=== PATIENT | female | born 1945 | race Caucasian/White ===

== ENCOUNTER → 2016-09-01 | Outpatient (CLI) | payer MEDICARE, BC ==
--- NOTE | 2016-09-01 15:41 | CR ---
EXAMINATION: Two-view chest (PA and Lateral views). HISTORY: Cough. FINDINGS: The trachea is midline. The cardiomediastinal silhouette is within normal limits. There is moderate chronic interstitial prominence without focal infiltrate. No pleural effusion or pneumothorax. Osseous structures appear unremarkable. IMPRESSION: Moderate chronic interstitial prominence and hyperinflation without an acute cardiopulmonary finding .
== END ==
LOC: MW.CHFP 14:38
PROVIDERS: ATTEND Physician Assistant
DX: R05 Cough (principal); R91.8 Other nonspecific abnormal finding of lung field
CPT/HCPCS: 36415; 71020; 85025; G0463

== ENCOUNTER → 2016-09-13 | Outpatient (CLI) | payer MEDICARE, BC ==
[2016-09-13 08:57] LABS: CHLORIDE,CL 104 mmol/L (98-110); SODIUM,NA 138 mmol/L (136-146)
== END ==
LOC: MW.CHFP 08:13
PROVIDERS: ATTEND Emergency Medicine
DX: E78.00 Pure hypercholesterolemia, unspecified (principal); J45.909 Unspecified asthma, uncomplicated; E03.9 Hypothyroidism, unspecified
CPT/HCPCS: 36415; 80048; 84443

== ENCOUNTER → 2016-09-14 | Outpatient (CLI) | payer MEDICARE, BC ==
--- NOTE | 2016-09-14 16:47 | MY ---
EXAMINATION: Bilateral digital mammography utilizing CAD. HISTORY: Screening exam. Comparison is made to previous studies dated 01/22/2015, 01/15/2014. FINDINGS: Bilateral scattered fibroglandular densities. No suspicious calcifications, masses or a rchitectural distortions. No pathologic appearing lymph nodes, no abnormal skin thickening or nipp le inversion. CAD highlighted regions appear normal at this time. IMPRESSION: BI-RADS category I - negative mammogram. Continued screening according to ACR-ACS gu idelines suggested. THE FALSE-NEGATIVE RATE OF MAMMOGRAM IS APPROXIMATELY 10%. MANAGEMENT OF A PALPABLE ABNORMALITY MUST BE BASED UPON CLINICAL GROUNDS. SENSITIVITY FOR DETECTION OF ABNORMALITIES IN DENSE BREASTS IS LOW. NOTE: A letter will be sent to the patient regarding findings. [facility] -- DORETHA Hammond [phone] - FAX [phone]
== END ==
LOC: MW.MAM 10:52
PROVIDERS: ATTEND Emergency Medicine
DX: Z12.31 Encounter for screening mammogram for malignant neoplasm of breast (principal)
CPT/HCPCS: 99214; G0202; G0202-26

== ENCOUNTER → 2016-10-04 | Outpatient (CLI) | payer MEDICARE, BC | LOC: MW.CHFP 08:00 | PROVIDERS: ATTEND Emergency Medicine | DX: J44.1 Chronic obstructive pulmonary disease with (acute) exacerbation (principal) | CPT/HCPCS: 96372; G0463; J3301 ==

== ENCOUNTER 2018-03-17 08:11 | Emergency (ER) | payer MEDICARE, BC ==
[2018-03-17] MEDS ORDERED: Albuterol/Ipratropium 3.0-0.5 MG/3 ML Neb Soln NEB ONE (08:32)
[2018-03-17 08:33] VITALS: BP 192/103
--- NOTE | 2018-03-17 08:36 | EDM.PDOC ---
ED HPI GENERAL MEDICAL PROBLEM - General Chief Complaint: Respiratory Problem Stated Complaint: COUGHING Time Seen by Provider: 03/17/18 08:28 - History of Present Illness INITIAL COMMENTS - FREE TEXT/NARRATIVE: HISTORY AND PHYSICAL: History of present illness: Patient's a 72-year-old female with history of COPD who presents with a concern of shortness of breath cough 2 weeks she denies chest pain fever chills nausea vomiting Review of systems: As per history of present illness and below otherwise all systems reviewed and negative. Past medical history: As per history of present illness and as reviewed below otherwise noncontributory. Surgical history: As per history of present illness and as reviewed below otherwise noncontributory. Social history: No reported history of drug or alcohol abuse. Family history: As per history of present illness and as reviewed below otherwise noncontributory. Physical exam: HEENT: Atraumatic, normocephalic, pupils reactive, negative for conjunctival pallor or scleral icterus, mucous membranes moist, throat clear, neck supple, nontender, trachea midline. Lungs: Rare end exploit wheezing, breath sounds equal bilaterally, chest nontender. Heart: S1S2, regular, negative for clicks, rubs, or JVD. Abdomen: Soft, nondistended, nontender. Negative for masses or hepatosplenomegaly. Negative for costovertebral tenderness. Pelvis: Stable nontender. Genitourinary: Deferred. Rectal: Deferred. Extremities: Atraumatic, negative for cords or calf pain. Neurovascular unremarkable. Neuro: Awake, alert, oriented. Cranial nerves II through XII unremarkable. Cerebellum unremarkable. Motor and sensory unremarkable throughout. Exam nonfocal. Diagnostics: Chest x-ray Therapeutics: Albuterol ipratropium nebulizer Impression: #1 COPD with exacerbation Definitive disposition and diagnosis as appropriate pending reevaluation and review of above. - Related Data Allergies Allergy/AdvReac Type Severity Reaction Status Date / Time No Known Allergies Allergy Verified 03/17/18 08:24 Home Meds: Home Meds Albuterol [Ventolin HFA] 2 puff INH ASDIRECTED PRN 03/17/18 [History] Fluorouracil 1 applic TOP BID 03/17/18 [History] Fluticasone/Salmeterol [Advair 250-50 Diskus] 2 puff INH BID 03/17/18 [History] Levothyroxine Sodium 1 tab PO DAILY 03/17/18 [History] Simvastatin 20 mg PO DAILY 03/17/18 [History] Past Medical History Respiratory History: Reports: Bronchitis, Recurrent, COPD, Pneumonia, Recurrent Endocrine/Metabolic History: Reports: Hypothyroidism - Infectious Disease History Infectious Disease History: Reports: Chicken Pox, Measles, Mumps, Rubella - Past Surgical History GI Surgical History: Reports: Cholecystectomy Social & Family History - Family History Family Medical History: Noncontributory - Tobacco Use Smoking Status *Q: Current Every Day Smoker Years of Tobacco use: 30 Packs/Tins Daily: 0.5 - Caffeine Use Caffeine Use: Reports: Soda - Recreational Drug Use Recreational Drug Use: No ED ROS GENERAL - Review of Systems Review Of Systems: ROS reveals no pertinent complaints other than HPI. ED EXAM, GENERAL - Physical Exam Exam: See Below (See dictation) Course - Vital Signs Last Recorded V/S: Last Vital Signs Temp 35.9 C 03/17/18 08:21 Pulse 94 03/17/18 08:21 Resp 20 03/17/18 08:21 BP 192/103 H 03/17/18 08:21 Pulse Ox 91 L 03/17/18 08:21 - Orders/Labs/Meds Orders: Active Orders 24 hr Category Date Time Status RT Aerosol Therapy [RC] ASDIRECTED Care 03/17/18 08:32 Active Chest 1V Frontal [CR] Stat Exams 03/17/18 08:32 Taken Meds: Medications Discontinued Medications Generic Name Dose Route Start Last Admin Trade Name Freq PRN Reason Stop Dose Admin Albuterol/Ipratropium 3 ml 03/17/18 08:32 03/17/18 08:43 Duoneb 3.0-0.5 Mg/3 Ml NEB 03/17/18 08:33 3 ml ONETIME ONE Administration Departure - Departure Time of Disposition: 10:58 Disposition: Home, Self-Care 01 Condition: Good Clinical Impression: Acute bronchiolitis, COPD (chronic obstructive pulmonary disease) - Discharge Information *PRESCRIPTION DRUG MONITORING PROGRAM REVIEWED*: Not Applicable *COPY OF PRESCRIPTION DRUG MONITORING REPORT IN PATIENT MARYANNE: Not Applicable Instructions: Acute Bronchitis, Adult Referrals: Apolinar Johnson MD [Primary Care Provider] - Forms: ED Department Discharge Additional Instructions: 1. Return to ED as needed as discussed 2. Take Medications as prescribed. 3. Follow up with Primary care. - My Orders Last 24 Hours: My Active Orders 03/17/18 08:32 RT Aerosol Therapy [RC] ASDIRECTED Chest 1V Frontal [CR] Stat - Assessment/Plan Last 24 Hours: My Active Orders 03/17/18 08:32 RT Aerosol Therapy [RC] ASDIRECTED Chest 1V Frontal [CR] Stat
--- NOTE | 2018-03-18 13:06 | CR ---
EXAM DATE: 03/17/18 PATIENT'S AGE: 72 Patient: SAM FUNG Facility: [place], [place] Site . Site : 1945 Study: XRay Chest [id number]/2/2018 8:47:51 AM Ordering Physician: Doctor Daniel Final Report: INDICATION: Shortness of breath TECHNIQUE: Single view chest. FINDINGS: The lungs are clear. The heart, mediastinum and pulmonary vessels are of normal size. There is no evidence of pleural disease. IMPRESSION: Negative chest. Dictated by Andreea Rubin MD @ Mar 17 2018 8:56AM (Electronic Signature) Report Signed by Proxy. CHIN
== END 2018-03-17 09:31 | disposition home or self-care (01) ==
LOC: MW.ED 08:11
DX: J44.1 Chronic obstructive pulmonary disease with (acute) exacerbation (principal); F17.210 Nicotine dependence, cigarettes, uncomplicated; Z79.899 Other long term (current) drug therapy
CPT/HCPCS: 71045; 71045-26; 94640; 99283-25; J7620-GY

== ENCOUNTER 2018-08-02 09:42 | Day surgery (SDC) | payer MEDICARE, BC ==
--- NOTE | 2018-08-02 07:07 | PCM.PREANE ---
Preanesthetic Assessment - Anesthesia/Transfusion/Family Hx Anesthesia History: Prior Anesthesia Without Reaction (belkis, tubal and laryngoscopy for nodule in throat on vocal cord (resolved, no further signs or symptoms): no problems with anesthesia) Family History of Anesthesia Reaction: No Transfusion History: No Prior Transfusion(s) - Review of Systems General: No Symptoms Pulmonary: No Symptoms (asthma/copd--uses inhaler prn. Smoker. chronic bronchitis from smoking. Used inhaler this morning but stillhas few rhonchi on left and right-albuterol neb Rx ordered preop. smokes 1/2 ppd.) Cardiovascular: No Symptoms Gastrointestinal: No Symptoms Neurological: No Symptoms Other: Reports: Thyroid Problems (hypothyroid==on Rx) - Physical Assessment NPO Status Date: 08/02/18 NPO Status Time: 00:00 Pulse: 78 O2 Sat by Pulse Oximetry: 98 Respiratory Rate: 18 Blood Pressure: 178/82 Temperature: 36.7 C Height: 1.63 m Weight: 79.379 kg ASA Class: 3 Mental Status: Alert & Oriented x3 Airway Class: Mallampati = 2 Dentition: Reports: Dentures (upper denture and lower partial) Thyro-Mental Finger Breadths: 2 Mouth Opening Finger Breadths: 3 ROM/Head Extension: Full Lungs: Normal Respiratory Effort, Rhonchi Cardiovascular: Regular Rate, Regular Rhythm, No Murmurs - Lab Values: cmp done 09/30 was WNL - Allergies Allergies/Adverse Reactions: Allergies Allergy/AdvReac Type Severity Reaction Status Date / Time acetaminophen Allergy Abdominal Verified 07/31/18 10:44 [From Tylenol-Codeine] Pain cephalexin Allergy Nausea and Verified 07/31/18 10:44 Vomiting codeine Allergy Abdominal Verified 08/02/18 10:43 [From Tylenol-Codeine] Pain sulfamethoxazole Allergy Hives Verified 07/31/18 10:44 - Blood Blood Available: No Product(s) Available: None - Anesthesia Plan Pre-Op Medication Ordered: None - Acknowledgements Anesthesia Type Planned: MAC (Mac discussed with patient. GA backup. Consent signed. Alll questions answered. Albuterol neb at 1045 hrs.) Pt an Appropriate Candidate for the Planned Anesthesia: Yes Alternatives and Risks of Anesthesia Discussed w Pt/Guardian: Yes Pt/Guardian Understands and Agrees with Anesthesia Plan: Yes PreAnesthesia Questionnaire HEENT History: Reports: Allergic Rhinitis, Cataract, Other (See Below) Other HEENT History: wears glasses, has upper denture and lower partial removable denture Cardiovascular History: Reports: High Cholesterol Respiratory History: Reports: Asthma, COPD Gastrointestinal History: Reports: Hiatal Hernia, Other (See Below) Other Gastrointestinal History: occasional heartburn 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: Musculoskeletal History: Reports: Arthritis, Back Pain, Chronic, Fracture Other Musculoskeletal History: has a hard time lying on her back, hx of fx foot Neurological History: Reports: Other (See Below) Other Neuro History: hx of motion sickness Endocrine/Metabolic History: Reports: Hypothyroidism Oncologic (Cancer) History: Reports: Basal Cell Carcinoma Other Oncologic History: currently on nose - Infectious Disease History Infectious Disease History: Reports: Chicken Pox, Measles, Mumps, Rubella - Past Surgical History HEENT Surgical History: Reports: Cataract Surgery, Other (See Below) Other HEENT Surgeries/Procedures: Excision of Vocal Cord Polyp GI Surgical History: Reports: Cholecystectomy Female Surgical History: Reports: Tubal Ligation - SUBSTANCE USE Smoking Status *Q: Current Every Day Smoker Tobacco Use Within Last Twelve Months: Cigarettes Recreational Drug Use History: No - HOME MEDS Home Medications: Home Meds Albuterol [Ventolin HFA] 1 - 2 puff INH Q4H PRN 03/17/18 [History] Fluticasone/Salmeterol [Advair 250-50 Diskus] 1 puff INH BID 03/17/18 [History] Levothyroxine Sodium 100 mcg PO QAM 03/17/18 [History] Simvastatin 20 mg PO DAILY 03/17/18 [History] Fluticasone Propionate [Flonase Allergy Relief] 1 spray NASBOTH BID PRN [History] Loratadine/Pseudoephedrine [Claritin-D 12 Hour] 0.25 tab PO DAILY PRN 07/31/18 [ History] - CURRENT (IN HOUSE) MEDS Current Meds: Current Medications Bupivacaine HCl/Epinephrine Bitart (Marcaine 0.25%/Epinephrine 1:200,000) 10 ml INJECT ONETIME ONE Stop: 08/02/18 08:01 Clindamycin Phosphate 600 mg/ (Premix) 50 mls @ 150 mls/hr IV ONETIME ONE Stop: 08/02/18 08:19 Lactated Ringer's (Ringers, Lactated) 1,000 mls @ 125 mls/hr IV ASDIRECTED WILTON
[~2018-08-02 09:42] MED LIST: Bupivacaine 0.25%/EPINEPHrine 1:200,000 10 ML SDV INJECT ONE; Clindamycin Phosphate in D5W 600 MG in Premix Bag 1 BAG IV ONE; Lactated Ringers 1,000 ML IV SCH
[2018-08-02] MEDS ORDERED: Albuterol 0.083% 2.5 MG/3 ML Neb Soln NEB ONE (10:32)
[2018-08-02] MEDS ORDERED: Bupivacaine 25%/EPINEPHrine/PF 30 ML ONE (10:44)
[2018-08-02] MEDS ORDERED: Tetracaine HCl/PF 0.5% 4 ML Bottle ONE (10:44)
[2018-08-02] MEDS ORDERED: fentaNYL 100 MCG/2 ML SDV IVPUSH PRN (10:52)
[2018-08-02] MEDS ORDERED: Propofol 200 MG/20 ML SDV ONE (10:58)
[2018-08-02] MEDS ORDERED: Midazolam 1 MG/ML 2 ML SDV ONE (10:58)
[2018-08-02] MEDS ORDERED: Ondansetron 4 MG/2 ML SDV IVPUSH SCH (11:00)
--- NOTE | 2018-08-02 12:35 | PCM.POSTAN ---
POST ANESTHESIA ASSESSMENT - MENTAL STATUS Mental Status: Alert, Oriented (awake and alert. Drinking water. Had only versed and propofol (no narcotics)) - VITAL SIGNS Pulse Rate: 78 SaO2: 98 (room air) Resp Rate: 18 Blood Pressure: 178/82 (her back hurts from laying flat for so long..) Temperature: 36.5 C - RESPIRATORY Respiratory Status: Respiratory Rate WNL, Airway Patent, O2 Saturation Stable - CARDIOVASCULAR CV Status: Pulse Rate WNL, Blood Pressure Stable - GASTROINTESTINAL GI Status: No Symptoms - PAIN Pain Score: 0 (no pain, no nausea) - POST OP HYDRATION Hydration Status: Adequate & Stable - OBSERVATIONS Free Text/Narrative:: awake and alert and conversant. Drinking water. Great post op phase I recovery.
--- NOTE | 2018-08-02 13:25 | PCM48HPAN ---
Post Anesthesia Note - EVALUATION WITHIN 48HRS OF ANESTHETIC Vital Signs in Normal Range: Yes Patient Participated in Evaluation: Yes Respiratory Function Stable: Yes Airway Patent: Yes Cardiovascular Function Stable: Yes Hydration Status Stable: Yes Pain Control Satisfactory: Yes Nausea and Vomiting Control Satisfactory: Yes Pulse Rate: 78 SaO2: 97 Resp Rate: 18 Temperature: 36.5 C Blood Pressure: 178/82 (her back hurts from laying flat for so long..) - COMMENTS/OBSERVATIONS Free Text/Narrative:: awake, alert, vitals stable. Ready to go home. Excellent post op phase II recovery.
--- NOTE | 2018-08-02 13:50 | PCM.OPNOTE ---
- General Post-Op/Procedure Note Date of Surgery/Procedure: 08/02/18 Operative Procedure(s): excision of nasal tip basal cell with frozen sections 1.3cm2 - v-y nasolabial advancement flap total defect + flap area = 3cm2 Pre Op Diagnosis: nasal tip basal cell Post-Op Diagnosis: Same Anesthesia Technique: Local, MAC Primary Surgeon: Radha Simmons Complications: None Condition: Good
[2018-08-02 14:07] VITALS: BP 180/87
--- NOTE | 2018-08-05 19:33 | OR ---
SURGEON: MANUEL KNIGHT MD DATE OF PROCEDURE: 08/02/2018 PREOPERATIVE DIAGNOSIS: Basal cell of the nasal tip. POSTOPERATIVE DIAGNOSIS: Basal cell of the nasal tip. PROCEDURE: 1. Excision of nasal tip basal cell with frozen sections 1.3 cm2. 2. V-Y nasolabial advancement flap for closure. Total defect plus flap area is 3 cm2. CAREER MANAGER: None. ANESTHESIA: Local MAC. INDICATIONS: Ms. Nazario is a 72-year-old female with a basal cell of the tip of her nose. She has failed conservative management with Efudex and this is not resolved. We discussed risks and benefits of excision. Risks were including but not limited to, bleeding, infection, damage to underlying or overlying structures, possible need for future interventions, possible scarring. PROCEDURE IN DETAIL: After informed consent was obtained and placed on the chart, the patient was brought to the operating theater and laid in supine position. After adequate local MAC anesthesia was obtained, the area was prepped and draped, a time-out was completed to confirm side and site. After adequate anesthesia, the 1.3 cm nasal tip basal cell carcinoma was excised and marked at 12 o'clock position and sent for frozen sections. Frozen sections returned as basal cell carcinoma with margins negative. Meticulous hemostasis was obtained with Bovie electrocautery and a V-Y nasolabial advancement flap was designed for closure of the defect. Total flap area plus the defect was 3 cm2. This was easily advanced in place and sutured using deep 4-0 Monocryl stitches and a running 6-0 Prolene for the skin for closure. Once adequately closed, the wound was dressed with bacitracin. The patient tolerated this well. All counts and needles were correct at the end of the case. FOLLOWUP INSTRUCTIONS: The patient will see us in the clinic in approximately 1 week, sooner if any problems, questions, or concerns. She will take [id number] medications for pain control. HEGGTHE / MODL /[id number]
== END 2018-08-02 12:50 | disposition home or self-care (01) ==
LOC: MW.SDS 09:42
PROVIDERS: ATTEND Plastic Surgery
DX: C44.311 Basal cell carcinoma of skin of nose (principal); J30.1 Allergic rhinitis due to pollen; J44.9 Chronic obstructive pulmonary disease, unspecified; E78.00 Pure hypercholesterolemia, unspecified; E03.9 Hypothyroidism, unspecified; F17.210 Nicotine dependence, cigarettes, uncomplicated; Z88.1 Allergy status to other antibiotic agents; Z88.2 Allergy status to sulfonamides; Z88.5 Allergy status to narcotic agent; Z88.6 Allergy status to analgesic agent; Z79.890 Hormone replacement therapy; Z98.890 Other specified postprocedural states
CPT/HCPCS: 14060; 88305; 88331; 94640; J2250; J2704; J3490; J7120; A9270-GY

== ENCOUNTER 2019-12-19 15:52 | Emergency (ER) | payer MEDICARE, BC ==
[2019-12-19] MEDS ORDERED: Sodium Chloride 0.9% 10 ML Syringe FLUSH PRN (15:54)
[2019-12-19] MEDS ORDERED: Sodium Chloride 0.9% 2.5 ML Syringe FLUSH PRN (15:54)
[2019-12-19] MEDS ORDERED: Heparin Sodium 5,000 Units/ML Vial ONE (16:03)
[2019-12-19] MEDS ORDERED: Heparin Sod,Pork In 0.45% Nacl 25,000 UNIT/500 ML IV.SOLN IV ONE (16:04)
[2019-12-19] MEDS ORDERED: Heparin Sodium 5,000 Units/ML Vial IVPUSH ONE (16:07)
[2019-12-19] MEDS ORDERED: fentaNYL 50 MCG/ML SDV ONE (16:09)
[2019-12-19 16:13] VITALS: BP 120/58; PULSE 53
[2019-12-19] MEDS ORDERED: Heparin Sod,Pork In 0.45% Nacl 25,000 UNIT/500 ML IV.SOLN IV SCH (16:15)
[2019-12-19] MEDS ORDERED: Aspirin 300 MG Supp ONE (16:15)
[2019-12-19] MEDS ORDERED: Aspirin 81 MG Tab.Chew ONE (16:17)
--- NOTE | 2019-12-19 16:24 | EDM.PDOC ---
ED HPI GENERAL MEDICAL PROBLEM - General Chief Complaint: Chest Pain Stated Complaint: CHEST PAIN Time Seen by Provider: 12/19/19 15:52 Source of Information: Reports: Patient, EMS History Limitations: Reports: No Limitations - History of Present Illness INITIAL COMMENTS - FREE TEXT/NARRATIVE: 74-year-old female with past medical history of COPD, hyperlipidemia, hypothyroidism presenting with chest pain. She arrives emergently by EMS. She was at work when she began experiencing substernal chest pain, shortness of breath, and lightheadedness approximately 30 minutes prior to arrival. When paramedics arrived, they obtained a twelve-lead EKG which was concerning for an inferior STEMI. They established IV access but did not give aspirin because they felt the patient was too sleepy. They transported her emergently to our emergency department. Here in the emergency department, she complains of 10 out of 10 chest pain and feeling lightheaded. She denies any history of coronary artery disease or stroke. Nothing makes her pain better or worse. She describes it as "crushing ". chest Pain Score (Numeric/FACES): 8 - Related Data Allergies Allergy/AdvReac Type Severity Reaction Status Date / Time acetaminophen Allergy Abdominal Verified 07/31/18 10:44 [From Tylenol-Codeine] Pain cephalexin Allergy Nausea and Verified 07/31/18 10:44 Vomiting codeine Allergy Abdominal Verified 08/02/18 10:43 [From Tylenol-Codeine] Pain sulfamethoxazole Allergy Hives Verified 07/31/18 10:44 Home Meds: Home Meds Albuterol [Ventolin HFA] 1 - 2 puff INH Q4H PRN 03/17/18 [History] Fluticasone Propion/Salmeterol [Advair 250-50 Diskus] 1 puff INH BID 03/17/18 [ History] Levothyroxine Sodium 100 mcg PO QAM 03/17/18 [History] Simvastatin 20 mg PO DAILY 03/17/18 [History] Fluticasone Propionate [Flonase Allergy Relief] 1 spray NASBOTH BID PRN [History] Loratadine/Pseudoephedrine [Claritin-D 12 Hour] 0.25 tab PO DAILY PRN 07/31/18 [ History] Past Medical History HEENT History: Reports: Allergic Rhinitis, Cataract, Other (See Below) Other HEENT History: wears glasses, has upper denture and lower partial removable denture Cardiovascular History: Reports: High Cholesterol Respiratory History: Reports: Asthma, COPD Gastrointestinal History: Reports: Hiatal Hernia, Other (See Below) Other Gastrointestinal History: occasional heartburn [employer] History: Reports: Musculoskeletal History: Reports: Arthritis, Back Pain, Chronic, Fracture Other Musculoskeletal History: has a hard time lying on her back, hx of fx foot Neurological History: Reports: Other (See Below) Other Neuro History: hx of motion sickness Endocrine/Metabolic History: Reports: Hypothyroidism Oncologic (Cancer) History: Reports: Basal Cell Carcinoma Other Oncologic History: currently on nose - Infectious Disease History Infectious Disease History: Reports: Chicken Pox, Measles, Mumps, Rubella - Past Surgical History HEENT Surgical History: Reports: Cataract Surgery, Other (See Below) Other HEENT Surgeries/Procedures: Excision of Vocal Cord Polyp GI Surgical History: Reports: Cholecystectomy Female Surgical History: Reports: Tubal Ligation Social & Family History - Family History Family Medical History: Noncontributory - Caffeine Use Caffeine Use: Reports: Soda ED ROS GENERAL - Review of Systems Review Of Systems: See Below Constitutional: Reports: No Symptoms, Weakness HEENT: Reports: No Symptoms Respiratory: Reports: Shortness of Breath Cardiovascular: Reports: Chest Pain, Lightheadedness GI/Abdominal: Reports: Nausea. Denies: Abdominal Pain, Vomiting : Denies: Flank Pain Musculoskeletal: Denies: Back Pain Skin: Reports: Diaphoresis Neurological: Denies: No Symptoms, Headache Psychiatric: Reports: No Symptoms ED EXAM, GENERAL - Physical Exam Exam: See Below Free Text/Narrative:: Vital signs reviewed. Nursing notes reviewed. Constitutional: Awake, alert, ill-appearing. Head: Normocephalic, atraumatic. Eyes: EOMI, conjunctiva normal, no discharge, no scleral icterus. Ears, Nose, Throat: External ears and nose normal, moist oral mucosa. Cardiovascular: 2+ radial pulses bilaterally, capillary refill less than 2 seconds. Pulmonary: normal work of breathing, no accessory muscle use. Abdomen/GI: Soft, nontender, nondistended, no guarding or rigidity, no masses. Musculoskeletal: No deformities. Integumentary: Pale, cool, diaphoretic, no pallor or jaundice, no rash. Neurologic: Sleepy but awakens appropriately. Alert, answering questions appropriately, normal speech, no facial droop, moving all extremities well. Psychiatric: Appropriate mood and affect, normal thought process. EKG INTERPRETATION EKG Interpretation Comments: 12-Lead ECG Interpretation Acquired: 4:03 PM Rhythm: Sinus bradycardia Rate: 51 bpm [place]: Normal Intervals: Normal Ectopy: None Ischemic Changes: ST segment elevation in leads II, 3, aVF, reciprocal depression in lead aVL, deep T wave inversions in V2. RV Strain: No obvious RV strain pattern. ST Segments/T-Waves: No notable changes Interpretation: Inferior STEMI Course - Vital Signs Text/Narrative:: 74-year-old female presenting with chest pain and shortness of breath. On arrival she was immediately roomed and monitoring equipment was applied. I reviewed the prehospital ECG, which shows an obvious inferior STEMI. Code STEMI was announced. Aeromedical transport team was already on standby and they were immediately dispatched. Labs were drawn. Defibrillator pads were attached. We obtained vital signs, which showed sinus bradycardia but normotensive blood pressure and normal pulse oxygen saturations. Patient was drowsy but she did awaken to voice and was able to participate in normal conversation and answer questions appropriately. Patient was given heparin bolus followed by heparin infusion. Chest x-ray shows no mediastinal widening or infiltrates. She was given full dose chewable aspirin and a small dose of fentanyl for pain relief. Labs were sent but did not result prior to transfer. After some fluids, the patient appeared much more awake and alert, and her pain had improved after fentanyl. JAMAAL Hernadez contacted [facility] ED ([place], [place]) and spoke with Dr. Ohara who agreed to accept the patient as an emergency transfer. Flight crew arrived and I gave an in-person report. She was transferred to the flight stretcher and transferred to the care of the aeromedical EMS crew in good condition. Last Recorded V/S: Last Vital Signs Temp 35.4 C L 12/19/19 15:52 Pulse 53 L 12/19/19 15:52 Resp 18 12/19/19 15:52 BP 120/58 L 12/19/19 15:52 Pulse Ox 97 12/19/19 15:52 - Orders/Labs/Meds Orders: Active Orders 24 hr Category Date Time Status EKG Documentation Completion [RC] STAT Care 12/19/19 15:54 Active Saline Lock Insert [OM.PC] Stat Oth 12/19/19 15:54 Ordered Labs: Laboratory Tests 12/19/19 12/19/19 12/19/19 Range/Units 16:05 16:05 16:05 WBC 12.28 H (4.0-11.0) K/uL RBC 5.19 (4.30-5.90) M/uL Hgb 15.3 (12.0-16.0) g/dL Hct 45.8 (36.0-46.0) % MCV 88.2 (80.0-98.0) fL MCH 29.5 (27.0-32.0) pg MCHC 33.4 (31.0-37.0) g/dL RDW Std Deviation 43.9 (28.0-62.0) fl RDW Coeff of Elena 14 (11.0-15.0) % Plt Count 227 (150-400) K/uL MPV 10.00 (7.40-12.00) fL Neut % (Auto) 75.2 (48.0-80.0) % Lymph % (Auto) 15.1 L (16.0-40.0) % [place] % (Auto) 8.4 (0.0-15.0) % Eos % (Auto) 1.1 (0.0-7.0) % Baso % (Auto) 0.2 (0.0-1.5) % Neut # (Auto) 9.2 H (1.4-5.7) K/uL Lymph # (Auto) 1.9 (0.6-2.4) K/uL [place] # (Auto) 1.0 H (0.0-0.8) K/uL Eos # (Auto) 0.1 (0.0-0.7) K/uL Baso # (Auto) 0.0 (0.0-0.1) K/uL Nucleated RBC % 0.0 /100WBC Nucleated RBCs # 0 K/uL INR 0.97 APTT (18.6-31.3) SEC Sodium 135 L (136-145) mmol/L Potassium 4.0 (3.5-5.1) mmol/L Chloride 102 (98-107) mmol/L Carbon Dioxide 21.8 (21.0-32.0) mmol/L BUN 21 H (7.0-18.0) mg/dL Creatinine 1.1 H (0.6-1.0) mg/dL Est Cr Clr Drug Dosing TNP Estimated GFR (MDRD) 48.4 ml/min Glucose 163 H (74-106) mg/dL Calcium 8.3 L (8.5-10.1) mg/dL Total Bilirubin 0.4 (0.2-1.0) mg/dL AST 22 (15-37) IU/L ALT 18 (14-63) IU/L Alkaline Phosphatase 111 (46-116) U/L Troponin I 1.856 H* (0.000-0.056) ng/mL Total Protein 6.8 (6.4-8.2) g/dL Albumin 3.5 (3.4-5.0) g/dL Globulin 3.3 (2.6-4.0) g/dL Albumin/Globulin Ratio 1.1 (0.9-1.6) 06//20 Range/Units 16:05 WBC (4.0-11.0) K/uL RBC (4.30-5.90) M/uL Hgb (12.0-16.0) g/dL Hct (36.0-46.0) % MCV (80.0-98.0) fL MCH (27.0-32.0) pg MCHC (31.0-37.0) g/dL RDW Std Deviation (28.0-62.0) fl RDW Coeff of Elena (11.0-15.0) % Plt Count (150-400) K/uL MPV (7.40-12.00) fL Neut % (Auto) (48.0-80.0) % Lymph % (Auto) (16.0-40.0) % [place] % (Auto) (0.0-15.0) % Eos % (Auto) (0.0-7.0) % Baso % (Auto) (0.0-1.5) % Neut # (Auto) (1.4-5.7) K/uL Lymph # (Auto) (0.6-2.4) K/uL [place] # (Auto) (0.0-0.8) K/uL Eos # (Auto) (0.0-0.7) K/uL Baso # (Auto) (0.0-0.1) K/uL Nucleated RBC % /100WBC Nucleated RBCs # K/uL INR APTT 24.5 (18.6-31.3) SEC Sodium (136-145) mmol/L Potassium (3.5-5.1) mmol/L Chloride (98-107) mmol/L Carbon Dioxide (21.0-32.0) mmol/L BUN (7.0-18.0) mg/dL Creatinine (0.6-1.0) mg/dL Est Cr Clr Drug Dosing Estimated GFR (MDRD) ml/min Glucose (74-106) mg/dL Calcium (8.5-10.1) mg/dL Total Bilirubin (0.2-1.0) mg/dL AST (15-37) IU/L ALT (14-63) IU/L Alkaline Phosphatase (46-116) U/L Troponin I (0.000-0.056) ng/mL Total Protein (6.4-8.2) g/dL Albumin (3.4-5.0) g/dL Globulin (2.6-4.0) g/dL Albumin/Globulin Ratio (0.9-1.6) Meds: Medications Discontinued Medications Generic Name Dose Route Start Last Admin Trade Name Freq PRN Reason Stop Dose Admin Aspirin Confirm 12/19/19 16:15 12/19/19 16:27 Aspirin Administered 12/19/19 16:16 Not Given Dose 300 mg .ROUTE .STK-MED ONE Aspirin Confirm 12/19/19 16:17 12/19/19 16:28 Aspirin Administered 12/19/19 16:18 Not Given Dose 324 mg .ROUTE .STK-MED ONE Aspirin 324 mg 12/19/19 16:37 12/19/19 16:20 Aspirin PO 12/19/19 16:38 324 mg ONETIME ONE Administration Fentanyl Confirm 12/19/19 16:09 12/19/19 16:28 Fentanyl Administered 12/19/19 16:10 Not Given Dose 50 mcg .ROUTE .STK-MED ONE Fentanyl 25 mcg 12/19/19 16:36 12/19/19 16:10 Fentanyl IVPUSH 12/19/19 16:37 25 mcg ONETIME ONE Administration Heparin Sodium (Porcine) Confirm 12/19/19 16:03 12/19/19 16:08 Heparin Sodium Administered 12/19/19 16:04 Not Given Dose 5,000 units .ROUTE .STK-MED ONE Heparin Sodium (Porcine) 4,000 units 12/19/19 16:07 12/19/19 16:06 Heparin Sodium IVPUSH 12/19/19 16:08 4,000 units .BOLUS ONE Administration Heparin Sodium/Sodium Chloride Confirm 12/19/19 16:04 12/19/19 16:28 Heparin-1/2ns 25,000 Units/500 Administered 12/19/19 16:05 Not Given Dose 25,000 unit in 500 mls @ as directed IV .STK-MED ONE Heparin Sodium/Sodium Chloride 25,000 unit in 500 mls @ 19.68 mls/hr 12/19/19 16:15 12/19/19 16:12 Heparin-1/2ns 25,000 Units/500 IV 12 units/kg/hr TITRATE WILTON 19.68 mls/hr Administration Protocol 12 UNITS/KG/HR Sodium Chloride 1,000 mls @ 999 mls/hr 12/19/19 20:08 12/19/19 15:55 Normal Saline IV 12/19/19 21:08 999 mls/hr .Bolus ONE Administration Sodium Chloride 10 ml 12/19/19 15:54 Saline Flush FLUSH ASDIRECTED PRN Keep Vein Open Sodium Chloride 2.5 ml 12/19/19 15:54 Saline Flush FLUSH ASDIRECTED PRN Keep Vein Open Departure - Departure Time of Disposition: 15:54 Disposition: DC/Tfer to Acute Hospital 02 Reason for Transfer *Q: Primary PCI Indicated Clinical Impression: STEMI (ST elevation myocardial infarction) Qualifiers: Involved coronary artery: unspecified coronary artery Qualified Code(s): I21.3 - ST elevation (STEMI) myocardial infarction of unspecified site Referrals: Apolinar Johnson MD [Primary Care Provider] - Forms: ED Department Discharge Critical Care Note - Critical Care Note Total Time (mins): 45 Comments: Critical care time is exclusive of billable procedures and the time to perform these procedures. Critical care time was used to prevent vital system organ failure and deterioration. Critical care time includes bedside management and high-complexity decision making requiring my highest level of mental preparedness and attention. This includes reviewing the patient's chart and prior medical records, ordering and reviewing interpreting laboratory studies and imaging results, interpretation of vital signs and EKG, pulse oximetry, and discussion with the admitting team along with EMS and nursing staff. 45 minutes of critical care time to prevent cardiovascular deterioration. Inferior STEMI with initial prehospital hypotensive vital signs. Required fluid resuscitation, serial twelve-lead EKGs, aspirin, heparin bolus and infusion. Aeromedical transport activation to [facility] for PCI. Serial blood pressure monitoring, continuous EKG monitoring. Interpretation of chest x-rays and vital signs. Multiple discussions with family, nursing staff, patient, and accepting hospitalist at [facility] in [place], [place]. Sepsis Event Note - Evaluation Sepsis Screening Result: No Definite Risk - Focused Exam Date Exam was Performed: 12/20/19 Time Exam was Performed: 07:30
--- NOTE | 2019-12-19 16:32 | CR ---
Chest: Portable supine view of the chest was obtained. Comparison: No previous chest imaging. Heart size and mediastinum are within normal limits. Lungs show no acute parenchymal change. Bony structures are grossly intact. Impression: 1. Nothing acute is appreciated on portable supine chest x-ray. Diagnostic code #2 This report was dictated in MDT
[2019-12-19] MEDS ORDERED: fentaNYL 50 MCG/ML SDV IVPUSH ONE (16:36)
[2019-12-19 16:37] LABS: BLOOD UREA NITROGEN,BUN 21 mg/dL (7.0-18.0); CARBON DIOXIDE,CO2 21.8 mmol/L (21.0-32.0); CHLORIDE,CL 102 mmol/L (98-107); GLUCOSE RANDOM 163 mg/dL (74-106); SODIUM,NA 135 mmol/L (136-145)
[2019-12-19] MEDS ORDERED: Aspirin 81 MG Tab.Chew PO ONE (16:37)
[2019-12-19] MEDS ORDERED: Sodium Chloride 0.9% 1,000 ML IV ONE (20:08)
== END 2019-12-19 16:24 ==
LOC: MW.ED 15:52
DX: I21.3 ST elevation (STEMI) myocardial infarction of unspecified site (principal); J44.9 Chronic obstructive pulmonary disease, unspecified; E03.9 Hypothyroidism, unspecified; E78.5 Hyperlipidemia, unspecified; Z79.899 Other long term (current) drug therapy; Z88.6 Allergy status to analgesic agent; Z88.5 Allergy status to narcotic agent; Z88.1 Allergy status to other antibiotic agents
CPT/HCPCS: 71045; 80053; 84484; 85025; 85610; 85730; 93005; 96374; 96375; 99291; A9270; J1644; J3010; J7030

== ENCOUNTER 2020-02-24 10:40 | Emergency (ER) | payer MEDICARE, BC ==
[2020-02-24] MEDS ORDERED: Sodium Chloride 0.9% 2.5 ML Syringe FLUSH PRN (10:54)
[2020-02-24] MEDS ORDERED: Sodium Chloride 0.9% 10 ML Syringe FLUSH PRN (10:54)
[2020-02-24] MEDS ORDERED: Lactated Ringers 1,000 ML IV ONE (10:55)
--- NOTE | 2020-02-24 10:56 | EDM.PDOC ---
ED HPI GENERAL MEDICAL PROBLEM - General Chief Complaint: Chest Pain Stated Complaint: CHEST PAIN Time Seen by Provider: 02/24/20 10:40 Source of Information: Reports: Patient, Old Records History Limitations: Reports: No Limitations - History of Present Illness INITIAL COMMENTS - FREE TEXT/NARRATIVE: 74-year-old female past medical history of STEMI status post multiple stents, hypertension, hyperlipidemia, COPD, hypothyroidism, presenting with lightheadedness and a sensation of heaviness in her legs. Patient states the symptoms started about 30 minutes ago while at rest. She states that these symptoms were concerning because she had identical symptoms immediately prior to her recent myocardial infarction. She denies any chest discomfort, back pain, abdominal pain, or shortness of breath. She denies headache, neck pain, visual disturbance, dysarthria, dysphasia, facial or extremity numbness or weakness, or gait changes. She states that her bilateral lower legs feel "heavy" and feel like they are hard to move. She denies any trauma to the head. Denies any recent medication changes. Denies fever, chills, recent vomiting, diarrhea, or GI bleeding. Nursing note mentions diaphoresis. The patient felt like she was going to start becoming sweaty, but has not actually been diaphoretic. ROS: A 10-point review of systems was negative, except as noted in the HPI (or in the ROS section of this note). Past medical history: Reviewed, no additional pertinent history. Surgical history: Reviewed in system, no additional pertinent history. Social history: Reviewed in system, no additional pertinent history. Family history: Reviewed in system, no additional pertinent history. PHYSICAL EXAM Vital signs reviewed. Nursing notes reviewed. Constitutional: Awake, alert, non-distressed. Head: Normocephalic, atraumatic. Eyes: EOMI, conjunctiva normal, no discharge, no scleral icterus. Pupils 3 mm bilaterally. Ears, Nose, Throat: External ears and nose normal, moist oral mucosa. Cardiovascular: 2+ radial pulse, capillary refill less than 2 seconds. No carotid bruits. RRR no MRG. Pulmonary: normal work of breathing, no accessory muscle use. CTA BL. Abdomen/GI: Soft, nontender, nondistended, no guarding or rigidity, no masses. Musculoskeletal: No deformities. Integumentary: Appropriate color for ethnicity, warm, dry, no pallor or jaundice, no rash. Neurologic: Awake, alert, and oriented x3. Cranial nerves II through XII intact. No facial droop or dysarthria. Supple neck with normal range of motion. No pronator drift. Normal [id number] and [id number]. 5/5 strength in all extremities. Sensation intact to light touch x4. Normal gait. Able to sit, stand, and ambulate without assistance. Psychiatric: Appropriate mood and affect, normal thought process. - Related Data Allergies Allergy/AdvReac Type Severity Reaction Status Date / Time acetaminophen Allergy Abdominal Verified 07/31/18 10:44 [From Tylenol-Codeine] Pain cephalexin Allergy Nausea and Verified 07/31/18 10:44 Vomiting codeine Allergy Abdominal Verified 08/02/18 10:43 [From Tylenol-Codeine] Pain sulfamethoxazole Allergy Hives Verified 07/31/18 10:44 Home Meds: Home Meds Fluticasone Propionate [Flonase Allergy Relief] 1 spray NASBOTH BID PRN 07/31/18 [History] Albuterol [Ventolin HFA] 1 inh IH Q4H PRN 02/24/20 [History] Aspirin 81 mg PO DAILY 02/24/20 [History] Fluticasone/Salmeterol [Advair 250-50] 1 inh IH BID 02/24/20 [History] Levothyroxine Sodium [Levoxyl] 100 mcg PO DAILY 02/24/20 [History] Metoprolol Tartrate 25 mg PO BID 02/24/20 [History] Ticagrelor [Brilinta] 90 mg PO BID 02/24/20 [History] amLODIPine [Norvasc] 2.5 mg PO DAILY 02/24/20 [History] atorvaSTATin [Lipitor] 40 mg PO DAILY 02/24/20 [History] Past Medical History HEENT History: Reports: Allergic Rhinitis, Cataract, Other (See Below) Other HEENT History: wears glasses, has upper denture and lower partial removable denture Cardiovascular History: Reports: High Cholesterol Respiratory History: Reports: Asthma, COPD Gastrointestinal History: Reports: Hiatal Hernia, Other (See Below) Other Gastrointestinal History: occasional heartburn 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: Musculoskeletal History: Reports: Arthritis, Back Pain, Chronic, Fracture Other Musculoskeletal History: has a hard time lying on her back, hx of fx foot Neurological History: Reports: Other (See Below) Other Neuro History: hx of motion sickness Endocrine/Metabolic History: Reports: Hypothyroidism Oncologic (Cancer) History: Reports: Basal Cell Carcinoma Other Oncologic History: currently on nose - Infectious Disease History Infectious Disease History: Reports: Chicken Pox, Measles, Mumps, Rubella - Past Surgical History HEENT Surgical History: Reports: Cataract Surgery, Other (See Below) Other HEENT Surgeries/Procedures: Excision of Vocal Cord Polyp GI Surgical History: Reports: Cholecystectomy Female Surgical History: Reports: Tubal Ligation Social & Family History - Family History Family Medical History: Noncontributory - Caffeine Use Caffeine Use: Reports: Soda ED ROS GENERAL - Review of Systems Review Of Systems: See Below ED EXAM, GENERAL - Physical Exam Exam: See Below EKG INTERPRETATION EKG Interpretation Comments: 12-Lead ECG Interpretation Acquired: 10:42 AM Rhythm: Sinus rhythm Rate: 67 bpm [place]: Left axis deviation Intervals: Normal Ectopy: Frequent PVCs and ventricular trigeminy pattern Ischemic Changes: QS complex in lead V2, poor R wave progression in precordial leads ST Segments/T-Waves: No notable changes Interpretation: Abnormal ECG Course - Vital Signs Text/Narrative:: Patient hemodynamically stable, afebrile, well-appearing, looks nontoxic. Initially hypertensive, blood pressure normalized after a brief period of observation. Differential diagnosis includes but is not limited to: ACS, CVA, TIA, volume depletion, electrolyte disturbance, anemia, arrhythmia, sepsis/infection, etc. Twelve-lead EKG appears nonischemic x2. Blood work is reassuring. Troponin negative x2. CBC, metabolic panel reassuring. Did obtain a noncontrast head CT showing no acute findings. Chest x-rays are clear. Given 325 mg of aspirin and 1 L of lactated Ringer's. On reevaluation at 1450 hrs., the patient states that her symptoms have resolved and she is totally back to normal. She is no longer feeling lightheaded or having the sensation of heaviness in her legs. She has never had chest discomfort or shortness of breath at any point today. The ECGs do not demonstrate acute ischemia and troponin testing is negative. Low suspicion for acute coronary syndrome given the lack of any chest discomfort or shortness of breath, vomiting, diaphoresis, or generalized weakness. Patient is symptom-free prior to discharge. Lightheadedness resolved. Patient never had focal weakness or numbness, low suspicion for stroke and CT imaging is negative. No focal neurologic symptoms. No history for infection, no fever at any point. Patient has no focal infectious symptoms, electrolytes look reassuring, no evidence of anemia. Etiology of her symptoms is not entirely clear but there is no evidence of a malignant process or acute emergency medical condition requiring admission to the hospital. Her symptoms have totally resolved and she wants to be discharged home. I think this is reasonable. We will have her follow-up closely with her primary medical doctor in the next few days for reevaluation. Plan: Patient is stable to discharge home with outpatient primary care clinic follow-up. Strict emergency department return precautions were provided, patient indicated understanding. All questions were answered prior to departure. Discharged in good condition. Last Recorded V/S: Last Vital Signs Temp 35.9 C L 02/24/20 10:42 Pulse 56 L 02/24/20 11:49 Resp 17 02/24/20 11:49 BP 123/64 02/24/20 11:49 Pulse Ox 98 02/24/20 11:49 - Orders/Labs/Meds Orders: Active Orders 24 hr Category Date Time Status Cardiac Monitoring [RC] . DIRECTED Care 02/24/20 10:54 Active EKG 12 Lead [EKG Documentation Completion] [RC] STAT Care 02/24/20 11:52 Active EKG Documentation Completion [RC] STAT Care 02/24/20 10:54 Active Pulse Oximetry [RC] ASDIRECTED Care 02/24/20 10:54 Active Sodium Chloride 0.9% [Saline Flush] Med 02/24/20 10:54 Active 10 ml FLUSH ASDIRECTED PRN Sodium Chloride 0.9% [Saline Flush] Med 02/24/20 10:54 Active 2.5 ml FLUSH ASDIRECTED PRN Saline Lock Insert [OM.PC] Stat Oth 02/24/20 10:54 Ordered Medication Orders Sodium Chloride (Saline Flush) 10 ml FLUSH ASDIRECTED PRN PRN Reason: Keep Vein Open Last Admin: 02/24/20 11:11 Dose: 10 ml Documented by: ANABELA Sodium Chloride (Saline Flush) 2.5 ml FLUSH ASDIRECTED PRN PRN Reason: Keep Vein Open Last Admin: 02/24/20 11:11 Dose: 2.5 ml Documented by: ANABELA Labs: Laboratory Tests 02/24/20 02/24/20 02/24/20 Range/Units 10:41 10:41 13:58 WBC 7.46 (4.0-11.0) K/uL RBC 4.91 (4.30-5.90) M/uL Hgb 14.7 (12.0-16.0) g/dL Hct 43.8 (36.0-46.0) % MCV 89.2 (80.0-98.0) fL MCH 29.9 (27.0-32.0) pg MCHC 33.6 (31.0-37.0) g/dL RDW Std Deviation 45.4 (28.0-62.0) fl RDW Coeff of Elena 14 (11.0-15.0) % Plt Count 226 (150-400) K/uL MPV 9.80 (7.40-12.00) fL Neut % (Auto) 78.5 (48.0-80.0) % Lymph % (Auto) 11.0 L (16.0-40.0) % [place] % (Auto) 7.6 (0.0-15.0) % Eos % (Auto) 2.8 (0.0-7.0) % Baso % (Auto) 0.1 (0.0-1.5) % Neut # (Auto) 5.9 H (1.4-5.7) K/uL Lymph # (Auto) 0.8 (0.6-2.4) K/uL [place] # (Auto) 0.6 (0.0-0.8) K/uL Eos # (Auto) 0.2 (0.0-0.7) K/uL Baso # (Auto) 0.0 (0.0-0.1) K/uL Sodium 137 (136-145) mmol/L Potassium 4.3 (3.5-5.1) mmol/L Chloride 102 (98-107) mmol/L Carbon Dioxide 25.7 (21.0-32.0) mmol/L BUN 16 (7.0-18.0) mg/dL Creatinine 1.0 (0.6-1.0) mg/dL Est Cr Clr Drug Dosing 41.97 mL/min Estimated GFR (MDRD) 54.1 ml/min Glucose 122 H (74-106) mg/dL Calcium 8.5 (8.5-10.1) mg/dL Total Bilirubin 0.5 (0.2-1.0) mg/dL AST 12 L (15-37) IU/L ALT 23 (14-63) IU/L Alkaline Phosphatase 156 H (46-116) U/L Troponin I < 0.050 < 0.050 (0.000-0.056) ng/mL Total Protein 7.5 (6.4-8.2) g/dL Albumin 3.6 (3.4-5.0) g/dL Globulin 3.9 (2.6-4.0) g/dL Albumin/Globulin Ratio 0.9 (0.9-1.6) Meds: Medications Generic Name Dose Route Start Last Admin Trade Name Freq PRN Reason Stop Dose Admin Sodium Chloride 10 ml 02/24/20 10:54 02/24/20 11:11 Saline Flush FLUSH 10 ml ASDIRECTED PRN Administration Keep Vein Open Sodium Chloride 2.5 ml 02/24/20 10:54 02/24/20 11:11 Saline Flush FLUSH 2.5 ml ASDIRECTED PRN Administration Keep Vein Open Discontinued Medications Generic Name Dose Route Start Last Admin Trade Name Freq PRN Reason Stop Dose Admin Aspirin 325 mg 02/24/20 11:02 02/24/20 11:12 Aspirin PO 02/24/20 11:03 325 mg ONETIME ONE Administration Lactated Ringer's 1,000 mls @ 999 mls/hr 02/24/20 10:55 02/24/20 11:11 Ringers, Lactated IV 02/24/20 11:55 999 mls/hr .BOLUS ONE Administration Departure - Departure Time of Disposition: 14:53 Disposition: Home, Self-Care 01 Condition: Good Clinical Impression: Lightheadedness Instructions: Dizziness Referrals: Apolinar Johnson MD [Physician] - 3 Days (For reevaluation of symptoms.) Forms: ED Department Discharge Additional Instructions: Thank you for choosing the [facility] emergency department in [place] for your medical needs today. It was a pleasure caring for you. The following information is given to patients seen in the emergency department who are being discharged. This information is to outline your options for follow-up care. We provide all patients seen in our emergency department with a follow-up referral. The need for follow-up, as well as the timing and circumstances, are variable depending upon the specifics of your emergency department visit. If you don't have a primary care physician on staff, we will provide you with a referral. We always advise you to contact your personal physician following an emergency department visit to inform them of the circumstance of the visit and for follow-up with them and/or the need for any referrals to a consulting specialist. The emergency department will also refer you to a specialist when appropriate. This referral assures that you have the opportunity for follow-up care with a specialist. All of these measure are taken in an effort to provide you with optimal care, which includes your follow-up. Under all circumstances we always encourage you to contact your private physician who remains a resource for coordinating your care. When calling for follow-up care, please make the office aware that this follow-up is from your recent emergency room visit. If for any reason you are refused follow-up, please contact the [facility] Emergency Department at and asked to speak to the emergency department charge nurse. If you do not have a primary care physician that is caring for you, you can contact these clinics below to set up an appointment to establish care: Allyssa To [facility] - Primary Care [address] [place] [address] [id number] [address] [address] Sepsis Event Note (ED) - Evaluation Sepsis Screening Result: No Definite Risk - Focused Exam Vital Signs: Vital Signs Temp Pulse Resp BP Pulse Ox 02/24/20 11:49 56 L 17 123/64 98 02/24/20 10:42 35.9 C L 65 18 190/134 H 97 - My Orders Last 24 Hours: My Active Orders 02/24/20 10:54 Cardiac Monitoring [RC] . DIRECTED EKG Documentation Completion [RC] STAT Pulse Oximetry [RC] ASDIRECTED Sodium Chloride 0.9% [Saline Flush] 10 ml FLUSH ASDIRECTED PRN Sodium Chloride 0.9% [Saline Flush] 2.5 ml FLUSH ASDIRECTED PRN Saline Lock Insert [OM.PC] Stat 02/24/20 11:52 EKG 12 Lead [EKG Documentation Completion] [RC] STAT - Assessment/Plan Last 24 Hours: My Active Orders 02/24/20 10:54 Cardiac Monitoring [RC] . DIRECTED EKG Documentation Completion [RC] STAT Pulse Oximetry [RC] ASDIRECTED Sodium Chloride 0.9% [Saline Flush] 10 ml FLUSH ASDIRECTED PRN Sodium Chloride 0.9% [Saline Flush] 2.5 ml FLUSH ASDIRECTED PRN Saline Lock Insert [OM.PC] Stat 02/24/20 11:52 EKG 12 Lead [EKG Documentation Completion] [RC] STAT
[2020-02-24] MEDS ORDERED: Aspirin 325 MG Tab PO ONE (11:02)
--- NOTE | 2020-02-24 11:39 | CT ---
Head CT Technique: Multiple axial sections through the brain were obtained. Intravenous contrast was not utilized. Comparison: No prior intracranial imaging is available. Findings: Ventricles along with basal cisterns and sulci over the convexities are mildly prominent. 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 Minimal areas of diminished density are noted within the periventricular white matter compatible with small vessel ischemic demyelination change. No other abnormal parenchymal densities are seen. No evidence of intracranial hemorrhage. No midline shift or mass effect is appreciated. Bone window settings were reviewed. Visualized paranasal sinuses and mastoid sinuses show nothing acute. No acute calvarial abnormality is appreciated. Impression: 1. Minimal senescent change as noted above. 2. No acute intracranial abnormality is appreciated. Note: Please correlate if patient's symptoms warrant further evaluation by MRI. Diagnostic code #2 This report was dictated in MDT
[2020-02-24 12:03] LABS: BLOOD UREA NITROGEN,BUN 16 mg/dL (7.0-18.0); CARBON DIOXIDE,CO2 25.7 mmol/L (21.0-32.0); CHLORIDE,CL 102 mmol/L (98-107); GLUCOSE RANDOM 122 mg/dL (74-106); POTASSIUM,K 4.3 mmol/L (3.5-5.1); SODIUM,NA 137 mmol/L (136-145)
--- NOTE | 2020-02-24 12:06 | CR ---
Chest: Portable view of the chest was obtained. Comparison: Prior chest x-ray of 12/19/19. Heart size and mediastinum are normal. Lungs are clear with no acute parenchymal change. Bony structures are grossly intact. Impression: 1. Nothing acute is appreciated on portable chest x-ray. Diagnostic code #1 This report was dictated in MDT
[2020-02-24 18:15] VITALS: BP 161/81; PULSE 65
== END 2020-02-24 15:16 | disposition home or self-care (01) ==
LOC: MW.ED 10:40
DX: R42 Dizziness and giddiness (principal); R07.9 Chest pain, unspecified; I10 Essential (primary) hypertension; I25.2 Old myocardial infarction; E78.5 Hyperlipidemia, unspecified; J44.9 Chronic obstructive pulmonary disease, unspecified; E03.9 Hypothyroidism, unspecified; Z88.2 Allergy status to sulfonamides; Z88.5 Allergy status to narcotic agent; Z88.1 Allergy status to other antibiotic agents; Z79.82 Long term (current) use of aspirin; Z79.899 Other long term (current) drug therapy
CPT/HCPCS: 36415; 70450; 71045; 80053; 84484; 85025; 93005; 96360; 99284; A9270; J7120

== ENCOUNTER 2020-03-22 11:24 | Emergency (ER) | payer MEDICARE, BC ==
[2020-03-22] MEDS ORDERED: Sodium Chloride 0.9% 2.5 ML Syringe FLUSH PRN ×2 (11:59)
[2020-03-22] MEDS ORDERED: Sodium Chloride 0.9% 10 ML Syringe FLUSH PRN (11:59)
[2020-03-22] MEDS ORDERED: Aspirin 81 MG Tab.Chew PO ONE (11:59)
--- NOTE | 2020-03-22 12:02 | EDM.PDOC ---
ED HPI GENERAL MEDICAL PROBLEM - General Chief Complaint: Respiratory Problem Stated Complaint: SHORTNESS OF BREATH Time Seen by Provider: 03/22/20 11:37 - History of Present Illness INITIAL COMMENTS - FREE TEXT/NARRATIVE: History of present illness: Patient presents with increasing shortness of breath and dyspnea on exertion over the past several weeks she had a heart attack in December and states that after the heart attack she had been experiencing shortness of breath and had been getting better but now over the last several days has been getting worse. She denies any cough fever chills she is not having any chest pain she denies any leg pain or leg swelling there is been no sore throat or congestion. She states it feels like I am getting enough air in but that my heart cannot circulate the oxygen to where it needs to go. Review of systems: As per history of present illness and below otherwise all systems reviewed and negative. Past medical history: As per history of present illness and as reviewed below otherwise noncontributory. Surgical history: As per history of present illness and as reviewed below otherwise noncontributory. Social history: No reported history of drug or alcohol abuse. Family history: As per history of present illness and as reviewed below otherwise noncontributory. Physical exam: HEENT: Atraumatic, normocephalic, pupils reactive, negative for conjunctival pallor or scleral icterus, mucous membranes moist, throat clear, neck supple, nontender, trachea midline. Lungs: Clear to auscultation, breath sounds equal bilaterally, chest nontender. Heart: S1S2, regular, negative for clicks, rubs, or JVD. Abdomen: Soft, nondistended, nontender. Negative for masses or hepatosplenomegaly. Negative for costovertebral tenderness. Pelvis: Stable nontender. Genitourinary: Deferred. Rectal: Deferred. Extremities: Atraumatic, negative for cords or calf pain. Neurovascular unremarkable. Neuro: Awake, alert, oriented. Cranial nerves II through XII unremarkable. Cerebellum unremarkable. Motor and sensory unremarkable throughout. Exam nonfocal. Diagnostics: [] Therapeutics: [] Impression: Dyspnea [] Plan: Lab studies chest x-ray reassess the patient. [] Definitive disposition and diagnosis as appropriate pending reevaluation and review of above. Middle Back Pain Score (Numeric/FACES): 5 - Related Data Allergies Allergy/AdvReac Type Severity Reaction Status Date / Time acetaminophen Allergy Abdominal Verified 03/22/20 11:55 [From Tylenol-Codeine] Pain cephalexin Allergy Nausea and Verified 03/22/20 11:55 Vomiting codeine Allergy Abdominal Verified 03/22/20 11:55 [From Tylenol-Codeine] Pain sulfamethoxazole Allergy Hives Verified 03/22/20 11:55 Home Meds: Home Meds Fluticasone Propionate [Flonase Allergy Relief] 1 spray NASBOTH BID PRN 07/31/18 [History] Fluticasone/Salmeterol [Advair 250-50] 1 inh IH BID 02/24/20 [History] Levothyroxine Sodium [Levoxyl] 100 mcg PO DAILY 02/24/20 [History] Metoprolol Tartrate 25 mg PO BID 02/24/20 [History] Ticagrelor [Brilinta] 90 mg PO BID 02/24/20 [History] amLODIPine [Norvasc] 2.5 mg PO DAILY 02/24/20 [History] atorvaSTATin [Lipitor] 40 mg PO DAILY 02/24/20 [History] Albuterol [Ventolin HFA] 1 puff INH ASDIRECTED 03/22/20 [History] Past Medical History HEENT History: Reports: Allergic Rhinitis, Cataract, Other (See Below) Other HEENT History: wears glasses, has upper denture and lower partial removable denture Cardiovascular History: Reports: High Cholesterol, [place], Other (See Below) Other Cardiovascular History: [place] and 4 stents placed on 12/19/19. 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: Musculoskeletal History: Reports: Arthritis, Back Pain, Chronic, Fracture Other Musculoskeletal History: has a hard time lying on her back, hx of fx foot Neurological History: Reports: Other (See Below) Other Neuro History: hx of motion sickness Psychiatric History: Reports: None Endocrine/Metabolic History: Reports: Hypothyroidism Hematologic History: Reports: None Immunologic History: Reports: None Oncologic (Cancer) History: Reports: Basal Cell Carcinoma Other Oncologic History: currently on nose Dermatologic History: Reports: None - Infectious Disease History Infectious Disease History: Reports: Chicken Pox, Measles, Mumps - Past Surgical History Head Surgeries/Procedures: Reports: None HEENT Surgical History: Reports: Cataract Surgery, Other (See Below) Other HEENT Surgeries/Procedures: Excision of Vocal Cord Polyp GI Surgical History: Reports: Cholecystectomy Female Surgical History: Reports: Tubal Ligation Dermatological Surgical History: Reports: None Social & Family History - Family History Family Medical History: Noncontributory - Tobacco Use Smoking Status *Q: Former Smoker Used Tobacco, but Quit: Yes Month/Year Tobacco Last Used: 01/02 - Caffeine Use Caffeine Use: Reports: Coffee ED ROS GENERAL - Review of Systems Review Of Systems: See Below ED EXAM, GENERAL - Physical Exam Exam: See Below EKG INTERPRETATION EKG Interpretation Comments: EKG is normal sinus rhythm rate of 61 bpm with 1 unifocal PVC left axis nonspecific ST-T changes no specific ischemia. Read interpreted by me Course - Vital Signs Text/Narrative:: One-view portable chest read interpreted by me no acute cardiopulmonary pathology is evident Patient is feeling well vital signs are stable troponin and BNP are unremarkable she will be discharged home is encouraged to follow-up with her port purser tomorrow she is to return to the ED if she has worsening shortness of breath or chest pain. Last Recorded V/S: Last Vital Signs Temp 36.5 C 03/22/20 11:37 Pulse 59 L 03/22/20 12:42 Resp 17 03/22/20 12:42 BP 136/70 03/22/20 12:42 Pulse Ox 97 03/22/20 12:42 - Orders/Labs/Meds Orders: Active Orders 24 hr Category Date Time Status EKG Documentation Completion [RC] STAT Care 03/22/20 11:59 Active Sodium Chloride 0.9% [Saline Flush] Med 03/22/20 11:59 Active 10 ml FLUSH ASDIRECTED PRN Sodium Chloride 0.9% [Saline Flush] Med 03/22/20 11:59 Active 2.5 ml FLUSH ASDIRECTED PRN Sodium Chloride 0.9% [Saline Flush] Med 03/22/20 11:59 Active 2.5 ml FLUSH ASDIRECTED PRN Saline Lock Insert [OM.PC] Stat Oth 03/22/20 11:59 Ordered Medication Orders Sodium Chloride (Saline Flush) 10 ml FLUSH ASDIRECTED PRN PRN Reason: Keep Vein Open Last Admin: 03/22/20 12:05 Dose: 10 ml Documented by: LYNN Sodium Chloride (Saline Flush) 2.5 ml FLUSH ASDIRECTED PRN PRN Reason: Keep Vein Open Last Admin: 03/22/20 12:05 Dose: 2.5 ml Documented by: LYNN Sodium Chloride (Saline Flush) 2.5 ml FLUSH ASDIRECTED PRN PRN Reason: Keep Vein Open Last Admin: 03/22/20 12:05 Dose: 2.5 ml Documented by: LYNN Labs: Laboratory Tests 03/22/20 03/22/20 03/22/20 Range/Units 11:43 11:43 11:43 WBC 6.98 (4.0-11.0) K/uL RBC 4.84 (4.30-5.90) M/uL Hgb 14.3 (12.0-16.0) g/dL Hct 44.3 (36.0-46.0) % MCV 91.5 (80.0-98.0) fL MCH 29.5 (27.0-32.0) pg MCHC 32.3 (31.0-37.0) g/dL RDW Std Deviation 47.3 (28.0-62.0) fl RDW Coeff of Elena 14 (11.0-15.0) % Plt Count 222 (150-400) K/uL MPV 9.90 (7.40-12.00) fL Neut % (Auto) 78.6 (48.0-80.0) % Lymph % (Auto) 7.3 L (16.0-40.0) % [place] % (Auto) 8.0 (0.0-15.0) % Eos % (Auto) 5.7 (0.0-7.0) % Baso % (Auto) 0.4 (0.0-1.5) % Neut # (Auto) 5.5 (1.4-5.7) K/uL Lymph # (Auto) 0.5 L (0.6-2.4) K/uL [place] # (Auto) 0.6 (0.0-0.8) K/uL Eos # (Auto) 0.4 (0.0-0.7) K/uL Baso # (Auto) 0.0 (0.0-0.1) K/uL Nucleated RBC % 0.0 /100WBC Nucleated RBCs # 0 K/uL Sodium 139 (136-145) mmol/L Potassium 4.4 (3.5-5.1) mmol/L Chloride 103 (98-107) mmol/L Carbon Dioxide 26.9 (21.0-32.0) mmol/L BUN 11 (7.0-18.0) mg/dL Creatinine 1.2 H (0.6-1.0) mg/dL Est Cr Clr Drug Dosing 34.98 mL/min Estimated GFR (MDRD) 43.8 ml/min Glucose 95 (74-106) mg/dL Calcium 9.0 (8.5-10.1) mg/dL Total Bilirubin 0.5 (0.2-1.0) mg/dL AST 13 L (15-37) IU/L ALT 21 (14-63) IU/L Alkaline Phosphatase 157 H (46-116) U/L Troponin I < 0.050 (0.000-0.056) ng/mL B-Natriuretic Peptide 175 H (<100) PG/ML Total Protein 7.0 (6.4-8.2) g/dL Albumin 3.5 (3.4-5.0) g/dL Globulin 3.5 (2.6-4.0) g/dL Albumin/Globulin Ratio 1.0 (0.9-1.6) Meds: Medications Generic Name Dose Route Start Last Admin Trade Name Freq PRN Reason Stop Dose Admin Sodium Chloride 10 ml 03/22/20 11:59 03/22/20 12:05 Saline Flush FLUSH 10 ml ASDIRECTED PRN Administration Keep Vein Open Sodium Chloride 2.5 ml 03/22/20 11:59 03/22/20 12:05 Saline Flush FLUSH 2.5 ml ASDIRECTED PRN Administration Keep Vein Open Sodium Chloride 2.5 ml 03/22/20 11:59 03/22/20 12:05 Saline Flush FLUSH 2.5 ml ASDIRECTED PRN Administration Keep Vein Open Discontinued Medications Generic Name Dose Route Start Last Admin Trade Name Freq PRN Reason Stop Dose Admin Aspirin 324 mg 03/22/20 11:59 03/22/20 12:05 Aspirin PO 03/22/20 12:00 324 mg ONETIME ONE Administration Departure - Departure Time of Disposition: 13:11 Disposition: Home, Self-Care 01 Condition: Good Clinical Impression: Dyspnea - Discharge Information *PRESCRIPTION DRUG MONITORING PROGRAM REVIEWED*: Not Applicable *COPY OF PRESCRIPTION DRUG MONITORING REPORT IN PATIENT MARYANNE: Not Applicable Instructions: Shortness of Breath, Adult, [id number] Referrals: Apolinar Johnson MD [Primary Care Provider] - Forms: ED Department Discharge Additional Instructions: The following information is given to patients seen in the emergency department who are being discharged to home. This information is to outline your options for follow-up care. We provide all patients seen in our emergency department with a follow-up referral. The need for follow-up, as well as the timing and circumstances, are variable depending upon the specifics of your emergency department visit. If you don't have a primary care physician on staff, we will provide you with a referral. We always advise you to contact your personal physician following an emergency department visit to inform them of the circumstance of the visit and for follow-up with them and/or the need for any referrals to a consulting specialist. The emergency department will also refer you to a specialist when appropriate. This referral assures that you have the opportunity for follow-up care with a specialist. All of these measure are taken in an effort to provide you with optimal care, which includes your follow-up. Under all circumstances we always encourage you to contact your private ev hiltonan who remains a resource for coordinating your care. When calling for follow-up care, please make the office aware that this follow-up is from your recent emergency room visit. If for any reason you are refused follow-up, please contact the [facility] Emergency Department at and asked to speak to the emergency department charge nurse. Sepsis Event Note (ED) - Evaluation Sepsis Screening Result: No Definite Risk - Focused Exam Vital Signs: Vital Signs Temp Pulse Resp BP Pulse Ox 03/22/20 12:42 59 L 17 136/70 97 03/22/20 12:27 61 17 130/71 98 03/22/20 12:13 62 16 134/59 L 98 03/22/20 11:37 36.5 C 66 18 174/72 H 97 - My Orders Last 24 Hours: My Active Orders 03/22/20 11:59 EKG Documentation Completion [RC] STAT Sodium Chloride 0.9% [Saline Flush] 10 ml FLUSH ASDIRECTED PRN Sodium Chloride 0.9% [Saline Flush] 2.5 ml FLUSH ASDIRECTED PRN Sodium Chloride 0.9% [Saline Flush] 2.5 ml FLUSH ASDIRECTED PRN Saline Lock Insert [OM.PC] Stat - Assessment/Plan Last 24 Hours: My Active Orders 03/22/20 11:59 EKG Documentation Completion [RC] STAT Sodium Chloride 0.9% [Saline Flush] 10 ml FLUSH ASDIRECTED PRN Sodium Chloride 0.9% [Saline Flush] 2.5 ml FLUSH ASDIRECTED PRN Sodium Chloride 0.9% [Saline Flush] 2.5 ml FLUSH ASDIRECTED PRN Saline Lock Insert [OM.PC] Stat
[2020-03-22 12:24] LABS: BLOOD UREA NITROGEN,BUN 11 mg/dL (7.0-18.0); CARBON DIOXIDE,CO2 26.9 mmol/L (21.0-32.0); CHLORIDE,CL 103 mmol/L (98-107); GLUCOSE RANDOM 95 mg/dL (74-106); POTASSIUM,K 4.4 mmol/L (3.5-5.1); SODIUM,NA 139 mmol/L (136-145)
--- NOTE | 2020-03-22 12:40 | CR ---
Chest: Portable view of the chest was obtained. Comparison: Prior chest x-ray of 02/24/20. Heart size and mediastinum are normal. Minimal atelectasis within the lateral left costophrenic angle is seen. Lungs show no acute parenchymal change. Bony structures are grossly intact. Impression: 1. Minimal atelectasis. 2. Nothing acute is seen. Diagnostic code #2 This report was dictated in MDT
[2020-03-22 13:21] VITALS: BP 130/70; PULSE 63
== END 2020-03-22 13:21 | disposition home or self-care (01) ==
LOC: MW.ED 11:24
DX: R06.02 Shortness of breath (principal); Z88.5 Allergy status to narcotic agent; Z88.1 Allergy status to other antibiotic agents; Z88.2 Allergy status to sulfonamides; Z79.899 Other long term (current) drug therapy; I25.2 Old myocardial infarction; E78.00 Pure hypercholesterolemia, unspecified; E03.9 Hypothyroidism, unspecified; Z90.49 Acquired absence of other specified parts of digestive tract; Z98.51 Tubal ligation status; Z87.891 Personal history of nicotine dependence
CPT/HCPCS: 36415; 71045; 80053; 83880; 84484; 85025; 93005; 99285; A9270

== ENCOUNTER 2020-04-02 03:04 | Emergency (ER) | payer MEDICARE, BC ==
[2020-04-02] MEDS ORDERED: Albuterol/Ipratropium 3.0-0.5 MG/3 ML Neb Soln NEB ONE (03:16)
[2020-04-02] MEDS ORDERED: Sodium Chloride 0.9% 10 ML Syringe FLUSH PRN (03:16)
[2020-04-02] MEDS ORDERED: Sodium Chloride 0.9% 2.5 ML Syringe FLUSH PRN (03:16)
[2020-04-02] MEDS ORDERED: methylPREDNISolone Sodium Succinate 125 MG/2 ML SDV IVPUSH ONE (03:16)
--- NOTE | 2020-04-02 03:19 | EDM.PDOC ---
ED HPI GENERAL MEDICAL PROBLEM - General Chief Complaint: Respiratory Problem Stated Complaint: AMB. Time Seen by Provider: 04/02/20 03:05 Source of Information: Reports: Patient History Limitations: Reports: No Limitations - History of Present Illness INITIAL COMMENTS - FREE TEXT/NARRATIVE: 74F PMHx CAD w/ stents, COPD not on home O2, asthma presents for SOB. Patient since yesterday has noted increasing wheezing and SOB. Worse with ambulation. No associated chest pain. Chronic unchanged cough. No fevers. Notes that home NEB helps initially but then wears off "too quickly". Has been weaning off of her metoprolol 2/2 worsening COPD. Has taken steroids in the past for her COPD but not recently. - Related Data Allergies Allergy/AdvReac Type Severity Reaction Status Date / Time acetaminophen Allergy Abdominal Verified 04/02/20 03:17 [From Tylenol-Codeine] Pain cephalexin Allergy Nausea and Verified 04/02/20 03:17 Vomiting codeine Allergy Abdominal Verified 04/02/20 03:17 [From Tylenol-Codeine] Pain sulfamethoxazole Allergy Hives Verified 04/02/20 03:17 Home Meds: Home Meds Fluticasone Propionate [Flonase Allergy Relief] 1 spray NASBOTH BID PRN 07/31/18 [History] Fluticasone/Salmeterol [Advair 250-50] 1 inh IH BID 02/24/20 [History] Levothyroxine Sodium [Levoxyl] 100 mcg PO DAILY 02/24/20 [History] Metoprolol Tartrate 25 mg PO BID 02/24/20 [History] Ticagrelor [Brilinta] 90 mg PO BID 02/24/20 [History] amLODIPine [Norvasc] 2.5 mg PO DAILY 02/24/20 [History] atorvaSTATin [Lipitor] 40 mg PO DAILY 02/24/20 [History] Albuterol [Ventolin HFA] 1 puff INH ASDIRECTED 03/22/20 [History] predniSONE 20 mg PO DAILY 5 Days #10 tab 04/02/20 [Rx] Past Medical History HEENT History: Reports: Allergic Rhinitis, Cataract, Other (See Below) Other HEENT History: wears glasses, has upper denture and lower partial removable denture Cardiovascular History: Reports: High Cholesterol, [place], Other (See Below) Other Cardiovascular History: [place] and 4 stents placed on 12/19/19. 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: Musculoskeletal History: Reports: Arthritis, Back Pain, Chronic, Fracture Other Musculoskeletal History: has a hard time lying on her back, hx of fx foot Neurological History: Reports: Other (See Below) Other Neuro History: hx of motion sickness Psychiatric History: Reports: None Endocrine/Metabolic History: Reports: Hypothyroidism Hematologic History: Reports: None Immunologic History: Reports: None Oncologic (Cancer) History: Reports: Basal Cell Carcinoma Other Oncologic History: currently on nose Dermatologic History: Reports: None - Infectious Disease History Infectious Disease History: Reports: Chicken Pox, Measles, Mumps - Past Surgical History Head Surgeries/Procedures: Reports: None HEENT Surgical History: Reports: Cataract Surgery, Other (See Below) Other HEENT Surgeries/Procedures: Excision of Vocal Cord Polyp GI Surgical History: Reports: Cholecystectomy Female Surgical History: Reports: Tubal Ligation Dermatological Surgical History: Reports: None Social & Family History - Family History Family Medical History: Noncontributory - Caffeine Use Caffeine Use: Reports: Coffee ED ROS GENERAL - Review of Systems Review Of Systems: Comprehensive ROS is negative, except as noted in HPI. ED EXAM, GENERAL - Physical Exam Exam: See Below Exam Limited By: No Limitations General Appearance: Alert, WD/WN, No Apparent Distress Ears: Normal External Exam Nose: Normal Inspection Throat/Mouth: Normal Inspection, Normal Voice, No Airway Compromise Head: Atraumatic, Normocephalic Neck: Normal Inspection Respiratory/Chest: No Respiratory Distress, No Accessory Muscle Use, Wheezing Cardiovascular: Normal Peripheral Pulses, Regular Rate, Rhythm, Other (symmetric b/l pitting edema of LE) Extremities: Normal Inspection Neurological: Alert Psychiatric: Normal Affect, Normal Mood Skin Exam: Warm, Dry, Intact, Normal Color EKG INTERPRETATION EKG Date: 04/02/20 Time: 04:19 Rhythm: NSR Rate (Beats/Min): 60 [place]: LAD-Left [place] Deviation P-Wave: Present QRS: Normal ST-T: Normal QT: Normal MD/PQ Interval: 158 Course - Vital Signs Last Recorded V/S: Last Vital Signs Temp 96.9 F 04/02/20 03:14 Pulse 72 04/02/20 03:14 Resp 22 H 04/02/20 03:14 BP 165/78 H 04/02/20 03:14 Pulse Ox 94 L 04/02/20 03:14 - Orders/Labs/Meds Orders: Active Orders 24 hr Category Date Time Status Cardiac Monitoring [RC] . DIRECTED Care 04/02/20 03:16 Active EKG Documentation Completion [RC] STAT Care 04/02/20 03:16 Active Pulse Oximetry [RC] ASDIRECTED Care 04/02/20 03:16 Active Chest 1V Frontal [CR] Stat Exams 04/02/20 03:17 Taken Sodium Chloride 0.9% [Saline Flush] Med 04/02/20 03:16 Active 10 ml FLUSH ASDIRECTED PRN Sodium Chloride 0.9% [Saline Flush] Med 04/02/20 03:16 Active 2.5 ml FLUSH ASDIRECTED PRN Saline Lock Insert [OM.PC] Stat Oth 04/02/20 03:16 Ordered Medication Orders Sodium Chloride (Saline Flush) 10 ml FLUSH ASDIRECTED PRN PRN Reason: Keep Vein Open Sodium Chloride (Saline Flush) 2.5 ml FLUSH ASDIRECTED PRN PRN Reason: Keep Vein Open Labs: Laboratory Tests 04/02/20 04/02/20 04/02/20 Range/Units 03:25 03:25 03:25 WBC 5.85 (4.0-11.0) K/uL RBC 4.49 (4.30-5.90) M/uL Hgb 13.1 (12.0-16.0) g/dL Hct 40.1 (36.0-46.0) % MCV 89.3 (80.0-98.0) fL MCH 29.2 (27.0-32.0) pg MCHC 32.7 (31.0-37.0) g/dL RDW Std Deviation 44.8 (28.0-62.0) fl RDW Coeff of Elena 14 (11.0-15.0) % Plt Count 190 (150-400) K/uL MPV 9.90 (7.40-12.00) fL Neut % (Auto) 72.3 (48.0-80.0) % Lymph % (Auto) 12.5 L (16.0-40.0) % [place] % (Auto) 6.5 (0.0-15.0) % Eos % (Auto) 8.2 H (0.0-7.0) % Baso % (Auto) 0.5 (0.0-1.5) % Neut # (Auto) 4.2 (1.4-5.7) K/uL Lymph # (Auto) 0.7 (0.6-2.4) K/uL [place] # (Auto) 0.4 (0.0-0.8) K/uL Eos # (Auto) 0.5 (0.0-0.7) K/uL Baso # (Auto) 0.0 (0.0-0.1) K/uL Nucleated RBC % 0.0 /100WBC Nucleated RBCs # 0 K/uL Sodium 139 (136-145) mmol/L Potassium 4.5 (3.5-5.1) mmol/L Chloride 104 (98-107) mmol/L Carbon Dioxide 22.0 (21.0-32.0) mmol/L BUN 26 H (7.0-18.0) mg/dL Creatinine 1.1 H (0.6-1.0) mg/dL Est Cr Clr Drug Dosing 39.76 mL/min Estimated GFR (MDRD) 48.4 ml/min Glucose 124 H (74-106) mg/dL Calcium 8.7 (8.5-10.1) mg/dL Magnesium 2.2 (1.8-2.4) mg/dL Total Bilirubin 0.5 (0.2-1.0) mg/dL AST 25 (15-37) IU/L ALT 19 (14-63) IU/L Alkaline Phosphatase 134 H (46-116) U/L Troponin I < 0.050 (0.000-0.056) ng/mL B-Natriuretic Peptide 152 H (<100) PG/ML Total Protein 6.6 (6.4-8.2) g/dL Albumin 3.2 L (3.4-5.0) g/dL Globulin 3.4 (2.6-4.0) g/dL Albumin/Globulin Ratio 0.9 (0.9-1.6) Meds: Medications Generic Name Dose Route Start Last Admin Trade Name Freq PRN Reason Stop Dose Admin Sodium Chloride 10 ml 04/02/20 03:16 Saline Flush FLUSH ASDIRECTED PRN Keep Vein Open Sodium Chloride 2.5 ml 04/02/20 03:16 Saline Flush FLUSH ASDIRECTED PRN Keep Vein Open Discontinued Medications Generic Name Dose Route Start Last Admin Trade Name Franciscoq PRN Reason Stop Dose Admin Albuterol/Ipratropium 3 ml 04/02/20 03:16 04/02/20 03:29 Duoneb 3.0-0.5 Mg/3 Ml NEB 04/02/20 03:17 3 ml ONETIME ONE Administration Methylprednisolone Sodium Succinate 125 mg 04/02/20 03:16 04/02/20 03:31 Solu-Medrol IVPUSH 04/02/20 03:17 125 mg ONETIME ONE Administration - Re-Assessments/Exams Free Text/Narrative Re-Assessment/Exam: 04/02/20 03:19 Apparent COPD exacerbation; will treat as such and reassess, disposition. 04/02/20 04:30 Labs and imaging unremarkable; patient remains well appearing with normal vitals. Will d/c with PMD f/u, short course prednisone Departure - Departure Time of Disposition: 04:31 Disposition: Home, Self-Care 01 Condition: Good Clinical Impression: COPD (chronic obstructive pulmonary disease) Qualifiers: COPD type: COPD with acute exacerbation Qualified Code(s): J44.1 - Chronic obstructive pulmonary disease with (acute) exacerbation - Discharge Information Prescriptions: predniSONE 20 mg PO DAILY 5 Days #10 tab Instructions: Chronic Obstructive Pulmonary Disease Exacerbation, [id number] Forms: ED Department Discharge Additional Instructions: The following information is given to patients seen in the emergency department who are being discharged to home. This information is to outline your options for follow-up care. We provide all patients seen in our emergency department with a follow-up referral. The need for follow-up, as well as the timing and circumstances, are variable depending upon the specifics of your emergency department visit. If you don't have a primary care physician on staff, we will provide you with a referral. We always advise you to contact your personal physician following an emergency department visit to inform them of the circumstance of the visit and for follow-up with them and/or the need for any referrals to a consulting specialist. The emergency department will also refer you to a specialist when appropriate. This referral assures that you have the opportunity for follow-up care with a specialist. All of these measure are taken in an effort to provide you with optimal care, which includes your follow-up. Under all circumstances we always encourage you to contact your private physician who remains a resource for coordinating your care. When calling for follow-up care, please make the office aware that this follow-up is from your recent emergency room visit. If for any reason you are refused follow-up, please contact the [facility] Emergency Department at and asked to speak to the emergency department charge nurse. Please follow up with your primary care physician. If you do not have a primary care physician, see below: [facility] [address] [place] [id number] [facility] [address] [place] [address] Sepsis Event Note (ED) - Evaluation Sepsis Screening Result: No Definite Risk - Focused Exam Vital Signs: Vital Signs Temp Pulse Resp BP Pulse Ox 04/02/20 03:14 96.9 F 72 22 H 165/78 H 94 L - My Orders Last 24 Hours: My Active Orders 04/02/20 03:16 Cardiac Monitoring [RC] . DIRECTED EKG Documentation Completion [RC] STAT Pulse Oximetry [RC] ASDIRECTED Sodium Chloride 0.9% [Saline Flush] 10 ml FLUSH ASDIRECTED PRN Sodium Chloride 0.9% [Saline Flush] 2.5 ml FLUSH ASDIRECTED PRN Saline Lock Insert [OM.PC] Stat 04/02/20 03:17 Chest 1V Frontal [CR] Stat - Assessment/Plan Last 24 Hours: My Active Orders 04/02/20 03:16 Cardiac Monitoring [RC] . DIRECTED EKG Documentation Completion [RC] STAT Pulse Oximetry [RC] ASDIRECTED Sodium Chloride 0.9% [Saline Flush] 10 ml FLUSH ASDIRECTED PRN Sodium Chloride 0.9% [Saline Flush] 2.5 ml FLUSH ASDIRECTED PRN Saline Lock Insert [OM.PC] Stat 04/02/20 03:17 Chest 1V Frontal [CR] Stat
[2020-04-02 03:51] LABS: BLOOD UREA NITROGEN,BUN 26 mg/dL (7.0-18.0); CHLORIDE,CL 104 mmol/L (98-107); GLUCOSE RANDOM 124 mg/dL (74-106); POTASSIUM,K 4.5 mmol/L (3.5-5.1); SODIUM,NA 139 mmol/L (136-145)
--- NOTE | 2020-04-02 04:33 | CR ---
Indication: SOB. COPD Technique: Chest 1 view Comparison: 03/22/2020 Findings/Impression: Cardiovascular and mediastinum: Normal cardiac size. Aortic arch calcifications. Lungs and pleural space: Mildly decreased lower lobe interstitial markings compared to the prior, versus differences in technique. Correlate clinically for an active interstitial process, including viral pneumonia, and follow-up, as indicated. An ovoid opacity in the lateral left upper lung again seen which could be related to the anterior 4th rib. Follow-up with oblique views. No pleural effusions. No pneumothorax seen. Bones and soft tissues: No significant change. Dictated by Ben Larkin MD @ 04/02/2020 4:32:49 AM Dictated by: Ben Larkin MD @ 04/02/2020 04:32:52 (Electronically Signed)
[2020-04-02 04:36] VITALS: BP 156/80; PULSE 64
== END 2020-04-02 05:05 | disposition home or self-care (01) ==
LOC: MW.ED 03:04
DX: J44.1 Chronic obstructive pulmonary disease with (acute) exacerbation (principal); E03.9 Hypothyroidism, unspecified; E78.00 Pure hypercholesterolemia, unspecified; I25.2 Old myocardial infarction; Z95.5 Presence of coronary angioplasty implant and graft; Z88.6 Allergy status to analgesic agent; Z88.1 Allergy status to other antibiotic agents; Z88.5 Allergy status to narcotic agent; Z88.2 Allergy status to sulfonamides; Z79.899 Other long term (current) drug therapy
CPT/HCPCS: 36415; 71045; 80053; 83735; 83880; 84484; 85025; 93005; 96374; 99285; J2930; J7620-GY

== ENCOUNTER 2020-08-09 09:14 | Inpatient (IN) | payer MEDICARE, BC ==
--- NOTE | 2020-08-09 09:24 | EDM.PDOC ---
ED HPI GENERAL MEDICAL PROBLEM - General Chief Complaint: Respiratory Problem Stated Complaint: EMS ARRIVAL Time Seen by Provider: 08/09/20 09:15 Source of Information: Reports: Patient History Limitations: Reports: No Limitations - History of Present Illness INITIAL COMMENTS - FREE TEXT/NARRATIVE: 74-year-old female PMHx CAD s/p STEMI, asthma, mild COPD not on O2 non-smoker pr esents for SOB over last week. Patient notes she recently started new beta denise (uncertain name) 2-weeks ago and notes symptoms worsening since then. She notes mild cough. Notes generalized weakness. Has periods of palpitations/subjective heart racing sensation. Denies fevers, vomiting, diarrhea. Notes preserved sense of taste/smell. - Related Data Allergies Allergy/AdvReac Type Severity Reaction Status Date / Time acetaminophen Allergy Abdominal Verified 08/09/20 09:21 [From Tylenol-Codeine] Pain cephalexin Allergy Nausea and Verified 08/09/20 09:21 Vomiting codeine Allergy Abdominal Verified 08/09/20 09:21 [From Tylenol-Codeine] Pain sulfamethoxazole Allergy Hives Verified 08/09/20 09:21 Home Meds: Home Meds Fluticasone Propionate [Flonase Allergy Relief] 1 spray NASBOTH BID PRN 07/31/18 [History] Fluticasone/Salmeterol [Advair 250-50] 1 inh IH BID 02/24/20 [History] Levothyroxine Sodium [Levoxyl] 100 mcg PO DAILY 02/24/20 [History] atorvaSTATin [Lipitor] 40 mg PO DAILY 02/24/20 [History] Albuterol [Ventolin HFA] 1 puff INH Q6H PRN 03/22/20 [History] Aspirin [Aspirin EC] 81 mg PO DAILY 08/09/20 [History] Clopidogrel [Plavix] 75 mg PO DAILY 08/09/20 [History] Lisinopril/Hydrochlorothiazide [Lisinopril-Hctz 10-12.5 mg Tab] 0.5 tab PO DAILY 08/09/20 [History] bisoproloL fumarate [Bisoprolol Fumarate] 2.5 mg PO DAILY 08/09/20 [History] Past Medical History HEENT History: Reports: Allergic Rhinitis, Cataract, Other (See Below) Other HEENT History: wears glasses, has upper denture and lower partial removable denture Cardiovascular History: Reports: High Cholesterol, AR, Other (See Below) Other Cardiovascular History: AR and 4 stents placed on 12/19/19. 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: Musculoskeletal History: Reports: Arthritis, Back Pain, Chronic, Fracture Other Musculoskeletal History: has a hard time lying on her back, hx of fx foot Neurological History: Reports: Other (See Below) Other Neuro History: hx of motion sickness Psychiatric History: Reports: None Endocrine/Metabolic History: Reports: Hypothyroidism Hematologic History: Reports: None Immunologic History: Reports: None Oncologic (Cancer) History: Reports: Basal Cell Carcinoma Other Oncologic History: currently on nose Dermatologic History: Reports: None - Infectious Disease History Infectious Disease History: Reports: Chicken Pox, Measles, Mumps - Past Surgical History Head Surgeries/Procedures: Reports: None HEENT Surgical History: Reports: Cataract Surgery, Other (See Below) Other HEENT Surgeries/Procedures: Excision of Vocal Cord Polyp GI Surgical History: Reports: Cholecystectomy Female Surgical History: Reports: Tubal Ligation Dermatological Surgical History: Reports: None Social & Family History - Family History Family Medical History: No Pertinent Family History - Caffeine Use Caffeine Use: Reports: Coffee ED ROS GENERAL - Review of Systems Review Of Systems: Comprehensive ROS is negative, except as noted in HPI. ED EXAM, GENERAL - Physical Exam Exam: See Below General Appearance: Alert, WD/WN, No Apparent Distress Throat/Mouth: Normal Voice, No Airway Compromise Head: Atraumatic, Normocephalic Neck: Normal Inspection Respiratory/Chest: No Respiratory Distress, No Accessory Muscle Use, Wheezing. No: Decreased Breath Sounds Cardiovascular: Normal Peripheral Pulses, Regular Rate, Rhythm, No Edema GI/Abdominal: Soft, Non-Tender Extremities: Normal Inspection Neurological: Alert, Oriented Psychiatric: Normal Affect, Normal Mood Skin Exam: Warm, Dry, Intact, Normal Color #1 Interpretation EKG Date: 08/09/20 Time: 09:19 Rhythm: NSR Rate (Beats/Min): 80 [place]: Normal P-Wave: Present QRS: Normal ST-T: Normal QT: Normal MA/PQ Interval: 168 Comparison: NA - No Prior EKG Course - Vital Signs Last Recorded V/S: Last Vital Signs Temp 97.2 F 08/09/20 09:22 Pulse 81 08/09/20 09:22 Resp 20 08/09/20 09:22 BP 139/112 H 08/09/20 09:22 Pulse Ox 98 08/09/20 09:22 - Orders/Labs/Meds Orders: Active Orders 24 hr Category Date Time Status Cardiac Monitoring [RC] . DIRECTED Care 08/09/20 09:34 Active EKG Documentation Completion [RC] STAT Care 08/09/20 09:34 Active Pulse Oximetry [RC] ASDIRECTED Care 08/09/20 09:34 Active Sodium Chloride 0.9% [Saline Flush] Med 08/09/20 09:34 Active 10 ml FLUSH ASDIRECTED PRN Sodium Chloride 0.9% [Saline Flush] Med 08/09/20 09:34 Active 2.5 ml FLUSH ASDIRECTED PRN Saline Lock Insert [OM.PC] Stat Oth 08/09/20 09:34 Ordered Medication Orders Sodium Chloride (Saline Flush) 10 ml FLUSH ASDIRECTED PRN PRN Reason: Keep Vein Open Last Admin: 08/09/20 09:41 Dose: 10 ml Documented by: [id number] Sodium Chloride (Saline Flush) 2.5 ml FLUSH ASDIRECTED PRN PRN Reason: Keep Vein Open Last Admin: 08/09/20 09:41 Dose: 2.5 ml Documented by: [id number] Labs: Laboratory Tests 08/09/20 08/09/20 08/09/20 Range/Units 09:30 09:30 09:30 WBC 5.11 (4.0-11.0) K/uL RBC 5.05 (4.30-5.90) M/uL Hgb 14.4 (12.0-16.0) g/dL Hct 45.0 (36.0-46.0) % MCV 89.1 (80.0-98.0) fL MCH 28.5 (27.0-32.0) pg MCHC 32.0 (31.0-37.0) g/dL RDW Std Deviation 47.0 (28.0-62.0) fl RDW Coeff of Elena 15 (11.0-15.0) % Plt Count 193 (150-400) K/uL MPV 9.80 (7.40-12.00) fL Neut % (Auto) 59.5 (48.0-80.0) % Lymph % (Auto) 17.0 (16.0-40.0) % Maury % (Auto) 6.1 (0.0-15.0) % Eos % (Auto) 16.8 H (0.0-7.0) % Baso % (Auto) 0.6 (0.0-1.5) % Neut # (Auto) 3.0 (1.4-5.7) K/uL Lymph # (Auto) 0.9 (0.6-2.4) K/uL Maury # (Auto) 0.3 (0.0-0.8) K/uL Eos # (Auto) 0.9 H (0.0-0.7) K/uL Baso # (Auto) 0.0 (0.0-0.1) K/uL Nucleated RBC % 0.0 /100WBC Nucleated RBCs # 0 K/uL Lactate 1.1 (0.20-2.00) mmol/L Sodium 141 (136-145) mmol/L Potassium 4.4 (3.5-5.1) mmol/L Chloride 105 (98-107) mmol/L Carbon Dioxide 23.7 (21.0-32.0) mmol/L BUN 27 H (7.0-18.0) mg/dL Creatinine 1.3 H (0.6-1.0) mg/dL Est Cr Clr Drug Dosing 32.29 mL/min Estimated GFR (MDRD) 39.9 ml/min Glucose 118 H (74-106) mg/dL Calcium 9.2 (8.5-10.1) mg/dL Magnesium 2.1 (1.8-2.4) mg/dL Total Bilirubin 0.6 (0.2-1.0) mg/dL AST 15 (15-37) IU/L ALT 24 (14-63) IU/L Alkaline Phosphatase 130 H (46-116) U/L Troponin I < 0.050 (0.000-0.056) ng/mL C-Reactive Protein <0.20 (0.00-0.90) mg/dL B-Natriuretic Peptide (<100) PG/ML Total Protein 7.2 (6.4-8.2) g/dL Albumin 3.8 (3.4-5.0) g/dL Globulin 3.4 (2.6-4.0) g/dL Albumin/Globulin Ratio 1.1 (0.9-1.6) Urine Color Urine Appearance Urine pH (5.0-8.0) Ur Specific [place] (1.001-1.035) Urine Protein (NEGATIVE) mg/dL Urine Glucose (UA) (NEGATIVE) mg/dL Urine Ketones (NEGATIVE) mg/dL Urine Occult Blood (NEGATIVE) Urine Nitrite (NEGATIVE) Urine Bilirubin (NEGATIVE) Urine Urobilinogen (<2.0) EU/dL Ur Leukocyte Esterase (NEGATIVE) Influenza Type A RNA (NEGATIVE) Influenza Type B RNA (NEGATIVE) SARS-CoV-2 RNA (CATINA) (NEGATIVE) 08/09/20 08/09/20 08/09/20 Range/Units 09:30 09:56 10:10 WBC (4.0-11.0) K/uL RBC (4.30-5.90) M/uL Hgb (12.0-16.0) g/dL Hct (36.0-46.0) % MCV (80.0-98.0) fL MCH (27.0-32.0) pg MCHC (31.0-37.0) g/dL RDW Std Deviation (28.0-62.0) fl RDW Coeff of Elena (11.0-15.0) % Plt Count (150-400) K/uL MPV (7.40-12.00) fL Neut % (Auto) (48.0-80.0) % Lymph % (Auto) (16.0-40.0) % Maury % (Auto) (0.0-15.0) % Eos % (Auto) (0.0-7.0) % Baso % (Auto) (0.0-1.5) % Neut # (Auto) (1.4-5.7) K/uL Lymph # (Auto) (0.6-2.4) K/uL Ma[place] # (Auto) (0.0-0.8) K/uL Eos # (Auto) (0.0-0.7) K/uL Baso # (Auto) (0.0-0.1) K/uL Nucleated RBC % /100WBC Nucleated RBCs # K/uL Lactate (0.20-2.00) mmol/L Sodium (136-145) mmol/L Potassium (3.5-5.1) mmol/L Chloride (98-107) mmol/L Carbon Dioxide (21.0-32.0) mmol/L BUN (7.0-18.0) mg/dL Creatinine (0.6-1.0) mg/dL Est Cr Clr Drug Dosing mL/min Estimated GFR (MDRD) ml/min Glucose (74-106) mg/dL Calcium (8.5-10.1) mg/dL Magnesium (1.8-2.4) mg/dL Total Bilirubin (0.2-1.0) mg/dL AST (15-37) IU/L ALT (14-63) IU/L Alkaline Phosphatase (46-116) U/L Troponin I (0.000-0.056) ng/mL C-Reactive Protein (0.00-0.90) mg/dL B-Natriuretic Peptide 20 (<100) PG/ML Total Protein (6.4-8.2) g/dL Albumin (3.4-5.0) g/dL Globulin (2.6-4.0) g/dL Albumin/Globulin Ratio (0.9-1.6) Urine Color YELLOW Urine Appearance CLEAR Urine pH 5.5 (5.0-8.0) Ur Specific [place] 1.025 (1.001-1.035) Urine Protein NEGATIVE (NEGATIVE) mg/dL Urine Glucose (UA) NEGATIVE (NEGATIVE) mg/dL Urine Ketones NEGATIVE (NEGATIVE) mg/dL Urine Occult Blood NEGATIVE (NEGATIVE) Urine Nitrite NEGATIVE (NEGATIVE) Urine Bilirubin NEGATIVE (NEGATIVE) Urine Urobilinogen 0.2 (<2.0) EU/dL Ur Leukocyte Esterase NEGATIVE (NEGATIVE) Influenza Type A RNA NEGATIVE (NEGATIVE) Influenza Type B RNA NEGATIVE (NEGATIVE) SARS-CoV-2 RNA (CATINA) POSITIVE H (NEGATIVE) Meds: Medications Generic Name Dose Route Start Last Admin Trade Name Freq PRN Reason Stop Dose Admin Sodium Chloride 10 ml 08/09/20 09:34 08/09/20 09:41 Saline Flush FLUSH 10 ml ASDIRECTED PRN Administration Keep Vein Open Sodium Chloride 2.5 ml 08/09/20 09:34 08/09/20 09:41 Saline Flush FLUSH 2.5 ml ASDIRECTED PRN Administration Keep Vein Open Discontinued Medications Generic Name Dose Route Start Last Admin Trade Name Freq PRN Reason Stop Dose Admin Albuterol/Ipratropium 3 ml 08/09/20 09:34 08/09/20 09:41 Duoneb 3.0-0.5 Mg/3 Ml NEB 08/09/20 09:35 3 ml ONETIME ONE Administration Methylprednisolone Sodium Succinate 125 mg 08/09/20 09:34 08/09/20 09:41 Solu-Medrol IVPUSH 08/09/20 09:35 125 mg ONETIME ONE Administration - Re-Assessments/Exams Free Text/Narrative Re-Assessment/Exam: 08/09/20 10:24 We will get labs and imaging, will follow up results and disposition accordingly. 08/09/20 11:17 COVID positive. CXR normal. Will admit for increased oxygen requirements. Departure - Departure Time of Disposition: 11:18 Disposition: Admitted As Inpatient 65 Clinical Impression: COVID-19 - Discharge Information Referrals: Apolinar Johnson MD [Primary Care Provider] - Forms: ED Department Discharge Critical Care Note - Critical Care Note Total Time (mins): 35 Sepsis Event Note (ED) - Focused Exam Vital Signs: Vital Signs Temp Pulse Resp BP Pulse Ox 08/09/20 09:22 97.2 F 81 20 139/112 H 98 - My Orders Last 24 Hours: My Active Orders 08/09/20 09:34 Cardiac Monitoring [RC] . DIRECTED EKG Documentation Completion [RC] STAT Pulse Oximetry [RC] ASDIRECTED Sodium Chloride 0.9% [Saline Flush] 10 ml FLUSH ASDIRECTED PRN Sodium Chloride 0.9% [Saline Flush] 2.5 ml FLUSH ASDIRECTED PRN Saline Lock Insert [OM.PC] Stat - Assessment/Plan Last 24 Hours: My Active Orders 08/09/20 09:34 Cardiac Monitoring [RC] . DIRECTED EKG Documentation Completion [RC] STAT Pulse Oximetry [RC] ASDIRECTED Sodium Chloride 0.9% [Saline Flush] 10 ml FLUSH ASDIRECTED PRN Sodium Chloride 0.9% [Saline Flush] 2.5 ml FLUSH ASDIRECTED PRN Saline Lock Insert [OM.PC] Stat
[2020-08-09] MEDS ORDERED: methylPREDNISolone Sodium Succinate 125 MG/2 ML SDV IVPUSH ONE (09:34)
[2020-08-09] MEDS ORDERED: Sodium Chloride 0.9% 10 ML Syringe FLUSH PRN (09:34)
[2020-08-09] MEDS ORDERED: Albuterol/Ipratropium 3.0-0.5 MG/3 ML Neb Soln NEB ONE (09:34)
[2020-08-09] MEDS ORDERED: Sodium Chloride 0.9% 2.5 ML Syringe FLUSH PRN ×2 (09:34→14:48)
[2020-08-09 10:05] LABS: BLOOD UREA NITROGEN,BUN 27 mg/dL (7.0-18.0); CARBON DIOXIDE,CO2 23.7 mmol/L (21.0-32.0); CHLORIDE,CL 105 mmol/L (98-107); GLUCOSE RANDOM 118 mg/dL (74-106); POTASSIUM,K 4.4 mmol/L (3.5-5.1); SODIUM,NA 141 mmol/L (136-145)
--- NOTE | 2020-08-09 10:26 | CR ---
INDICATION: Dyspnea COMPARISON: None TECHNIQUE: Single-view chest radiograph obtained portably FINDINGS: TUBES AND LINES: None. HEART AND MEDIASTINUM: The heart size is normal. The mediastinal contour appears normal for patient age. LUNGS AND PLEURAL SPACES: The lungs appear normal.The pleural spaces are unremarkable. OSSEOUS STRUCTURES: Age-appropriate appearance. No acute focal finding. IMPRESSION: No evidence of active pulmonary disease. Dictated by Bernard Leo MD @ Aug 09 2020 10:24AM Signed by Dr. Bernard Leo @ Aug 09 2020 10:25AM
[2020-08-09 11:04] LABS: CORONAVIRUS COVID-19 NAA POSITIVE (NEGATIVE); INFLUENZA A NAA NEGATIVE (NEGATIVE); INFLUENZA B NAA NEGATIVE (NEGATIVE)
[2020-08-09] MEDS ORDERED: REMDESIVIR 200 MG in Sodium Chloride 0.9% 250 ML IV ONE (13:23)
--- NOTE | 2020-08-09 13:25 | PCM.HP.2 ---
H&P History of Present Illness - General Date of Service: 08/09/20 Admit Problem/Dx: Admission Diagnosis/Problem Admission Diagnosis/Problem Hypoxia Source of Information: Patient History Limitations: Reports: No Limitations - History of Present Illness Initial Comments - Free Text/Narative: This 74-year-old female with a past medical history of STEMI in December 2019, CAD, COPD/asthma presented to the ER with 2-week history of shortness of breath. She reports that today she has continued to feel short of breath and called her lab intern Dr. Mosley who is unavailable. She felt the shortness of breath started after she was started on bisoprolol so that is why she did not seek evaluation sooner. She reports automatic reading and was breath greater than her baseline she otherwise has felt fine. She denies any fevers chills generalized malaise sinus congestion no sore throat. No loss of taste or smell. She denies any chest pain. Reports intermittent palpitations with shortness of breath. Denies any abdominal pain nausea vomiting black or bloody bowel movements and no diarrhea or constipation. She reports she quit smoking with her AL in December. Denies any alcohol use no recreational drug use. In the ER no leukocytosis noted. Hemoglobin and platelets stable. BUN and creatinine mildly elevated which are at baseline. No transaminitis noted. Ch est x-ray was negative for any acute cardiopulmonary process. She was noted to be hypoxic on arrival to the ER satting 85% on room air. She was placed on 2 L nasal cannula and sats improved to mid 90s. Covid swab was positive. Influenza swab negative she will be admitted for acute hypoxic respiratory failure and Covid 19. PCP Dr. Johnson Cardiology Dr. Mosley - Related Data Allergies/Adverse Reactions: Allergies Allergy/AdvReac Type Severity Reaction Status Date / Time acetaminophen Allergy Abdominal Verified 08/09/20 09:21 [From Tylenol-Codeine] Pain cephalexin Allergy Nausea and Verified 08/09/20 09:21 Vomiting codeine Allergy Abdominal Verified 08/09/20 09:21 [From Tylenol-Codeine] Pain sulfamethoxazole Allergy Hives Verified 08/09/20 09:21 Home Medications: Home Meds Fluticasone Propionate [Flonase Allergy Relief] 1 spray NASBOTH BID PRN 07/31/18 [History] Fluticasone/Salmeterol [Advair 250-50] 1 inh IH BID 02/24/20 [History] Levothyroxine Sodium [Levoxyl] 100 mcg PO DAILY 02/24/20 [History] atorvaSTATin [Lipitor] 40 mg PO DAILY 02/24/20 [History] Albuterol [Ventolin HFA] 1 puff INH Q6H PRN 03/22/20 [History] Aspirin [Aspirin EC] 81 mg PO DAILY 08/09/20 [History] Clopidogrel [Plavix] 75 mg PO DAILY 08/09/20 [History] Lisinopril/Hydrochlorothiazide [Lisinopril-Hctz 10-12.5 mg Tab] 0.5 tab PO DAILY 08/09/20 [History] bisoproloL fumarate [Bisoprolol Fumarate] 2.5 mg PO DAILY 08/09/20 [History] Past Medical History HEENT History: Reports: Allergic Rhinitis, Cataract, Other (See Below) Other HEENT History: wears glasses, has upper denture and lower partial removable denture Cardiovascular History: Reports: High Cholesterol, AL, Other (See Below) Other Cardiovascular History: AL and 4 stents placed on 12/19/19. Respiratory History: Reports: Asthma, COPD Gastrointestinal History: Reports: Hiatal Hernia, Other (See Below) Other Gastrointestinal History: occasional heartburn Genitourinary History: Reports: None [employer] History: Reports: Musculoskeletal History: Reports: Arthritis, Back Pain, Chronic, Fracture Other Musculoskeletal History: has a hard time lying on her back, hx of fx foot Neurological History: Reports: Other (See Below) Other Neuro History: hx of motion sickness Psychiatric History: Reports: None Endocrine/Metabolic History: Reports: Hypothyroidism Hematologic History: Reports: None Immunologic History: Reports: None Oncologic (Cancer) History: Reports: Basal Cell Carcinoma Other Oncologic History: currently on nose Dermatologic History: Reports: None - Infectious Disease History Infectious Disease History: Reports: Chicken Pox, Measles, Mumps - Past Surgical History Head Surgeries/Procedures: Reports: None HEENT Surgical History: Reports: Cataract Surgery, Other (See Below) Other HEENT Surgeries/Procedures: Excision of Vocal Cord Polyp GI Surgical History: Reports: Cholecystectomy Female Surgical History: Reports: Tubal Ligation Dermatological Surgical History: Reports: None Social & Family History - Family History Family Medical History: No Pertinent Family History - Tobacco Use Tobacco Use Status *Q: Never Tobacco User - Caffeine Use Caffeine Use: Reports: None - Recreational Drug Use Recreational Drug Use: No H&P Review of Systems - Review of Systems: Review Of Systems: See Below General: Reports: No Symptoms. Denies: Fever, Chills, Malaise, Weakness Pulmonary: Reports: Shortness of Breath, Wheezing. Denies: Cough, Sputum Cardiovascular: Reports: Dyspnea on Exertion. Denies: Chest Pain, Edema Gastrointestinal: Reports: No Symptoms. Denies: Abdominal Pain, Black Stool, Bloody Stool, Decreased Appetite, Nausea Genitourinary: Reports: No Symptoms. Denies: Dysuria, Frequency, Burning Musculoskeletal: Reports: No Symptoms Skin: Reports: No Symptoms Psychiatric: Reports: No Symptoms Neurological: Reports: No Symptoms Hematologic/Lymphatic: Reports: No Symptoms Immunologic: Reports: No Symptoms Exam - Exam Exam: See Below - Vital Signs Vital Signs: Last Vital Signs Temp 97.2 F 08/09/20 09:22 Pulse 65 08/09/20 12:23 Resp 20 08/09/20 12:23 BP 138/58 L 08/09/20 12:23 Pulse Ox 94 L 08/09/20 12:23 Weight: 92.986 kg - Exam Quality Assessment: Supplemental Oxygen General: Alert, Oriented, Cooperative HEENT: Conjunctiva Clear, Mucosa Moist & [place], Posterior Pharynx Clear Lungs: Wheezing (Inspiratory and expiratory). No: Normal Respiratory Effort Cardiovascular: Regular Rate, Regular Rhythm, Normal S1, Normal S2 Back Exam: Normal Inspection, Full Range of Motion Extremities: Normal Inspection, Normal Range of Motion, Non-Tender, No Pedal Edema Neurological: Cranial Nerves Intact Neuro Extensive - Mental Status: Alert, Oriented x3 Neuro Extensive - Motor, Sensory, Reflexes: CN II-XII Intact, Normal Gait Psychiatric: Alert, Normal Affect, Normal Mood - Patient Data Lab Results Last 24 hrs: Laboratory Results - last 24 hr 08/09/20 08/09/20 08/09/20 Range/Units 09:30 09:30 09:30 WBC 5.11 (4.0-11.0) K/uL RBC 5.05 (4.30-5.90) M/uL Hgb 14.4 (12.0-16.0) g/dL Hct 45.0 (36.0-46.0) % MCV 89.1 (80.0-98.0) fL MCH 28.5 (27.0-32.0) pg MCHC 32.0 (31.0-37.0) g/dL RDW Std Deviation 47.0 (28.0-62.0) fl RDW Coeff of Elena 15 (11.0-15.0) % Plt Count 193 (150-400) K/uL MPV 9.80 (7.40-12.00) fL Neut % (Auto) 59.5 (48.0-80.0) % Lymph % (Auto) 17.0 (16.0-40.0) % Wood % (Auto) 6.1 (0.0-15.0) % Eos % (Auto) 16.8 H (0.0-7.0) % Baso % (Auto) 0.6 (0.0-1.5) % Neut # (Auto) 3.0 (1.4-5.7) K/uL Lymph # (Auto) 0.9 (0.6-2.4) K/uL Wood # (Auto) 0.3 (0.0-0.8) K/uL Eos # (Auto) 0.9 H (0.0-0.7) K/uL Baso # (Auto) 0.0 (0.0-0.1) K/uL Nucleated RBC % 0.0 /100WBC Nucleated RBCs # 0 K/uL Lactate 1.1 (0.20-2.00) mmol/L Sodium 141 (136-145) mmol/L Potassium 4.4 (3.5-5.1) mmol/L Chloride 105 (98-107) mmol/L Carbon Dioxide 23.7 (21.0-32.0) mmol/L BUN 27 H (7.0-18.0) mg/dL Creatinine 1.3 H (0.6-1.0) mg/dL Est Cr Clr Drug Dosing 32.29 mL/min Estimated GFR (MDRD) 39.9 ml/min Glucose 118 H (74-106) mg/dL Calcium 9.2 (8.5-10.1) mg/dL Magnesium 2.1 (1.8-2.4) mg/dL Total Bilirubin 0.6 (0.2-1.0) mg/dL AST 15 (15-37) IU/L ALT 24 (14-63) IU/L Alkaline Phosphatase 130 H (46-116) U/L Troponin I < 0.050 (0.000-0.056) ng/mL C-Reactive Protein <0.20 (0.00-0.90) mg/dL B-Natriuretic Peptide (<100) PG/ML Total Protein 7.2 (6.4-8.2) g/dL Albumin 3.8 (3.4-5.0) g/dL Globulin 3.4 (2.6-4.0) g/dL Albumin/Globulin Ratio 1.1 (0.9-1.6) Urine Color Urine Appearance Urine pH (5.0-8.0) Ur Specific [place] (1.001-1.035) Urine Protein (NEGATIVE) mg/dL Urine Glucose (UA) (NEGATIVE) mg/dL Urine Ketones (NEGATIVE) mg/dL Urine Occult Blood (NEGATIVE) Urine Nitrite (NEGATIVE) Urine Bilirubin (NEGATIVE) Urine Urobilinogen (<2.0) EU/dL Ur Leukocyte Esterase (NEGATIVE) Influenza Type A RNA (NEGATIVE) Influenza Type B RNA (NEGATIVE) SARS-CoV-2 RNA (CATINA) (NEGATIVE) 08/09/20 08/09/20 08/09/20 Range/Units 09:30 09:56 10:10 WBC (4.0-11.0) K/uL RBC (4.30-5.90) M/uL Hgb (12.0-16.0) g/dL Hct (36.0-46.0) % MCV (80.0-98.0) fL MCH (27.0-32.0) pg MCHC (31.0-37.0) g/dL RDW Std Deviation (28.0-62.0) fl RDW Coeff of Elena (11.0-15.0) % Plt Count (150-400) K/uL MPV (7.40-12.00) fL Neut % (Auto) (48.0-80.0) % Lymph % (Auto) (16.0-40.0) % Wood % (Auto) (0.0-15.0) % Eos % (Auto) (0.0-7.0) % Baso % (Auto) (0.0-1.5) % Neut # (Auto) (1.4-5.7) K/uL Lymph # (Auto) (0.6-2.4) K/uL Wood # (Auto) (0.0-0.8) K/uL Eos # (Auto) (0.0-0.7) K/uL Baso # (Auto) (0.0-0.1) K/uL Nucleated RBC % /100WBC Nucleated RBCs # K/uL Lactate (0.20-2.00) mmol/L Sodium (136-145) mmol/L Potassium (3.5-5.1) mmol/L Chloride (98-107) mmol/L Carbon Dioxide (21.0-32.0) mmol/L BUN (7.0-18.0) mg/dL Creatinine (0.6-1.0) mg/dL Est Cr Clr Drug Dosing mL/min Estimated GFR (MDRD) ml/min Glucose (74-106) mg/dL Calcium (8.5-10.1) mg/dL Magnesium (1.8-2.4) mg/dL Total Bilirubin (0.2-1.0) mg/dL AST (15-37) IU/L ALT (14-63) IU/L Alkaline Phosphatase (46-116) U/L Troponin I (0.000-0.056) ng/mL C-Reactive Protein (0.00-0.90) mg/dL B-Natriuretic Peptide 20 (<100) PG/ML Total Protein (6.4-8.2) g/dL Albumin (3.4-5.0) g/dL Globulin (2.6-4.0) g/dL Albumin/Globulin Ratio (0.9-1.6) Urine Color YELLOW Urine Appearance CLEAR Urine pH 5.5 (5.0-8.0) Ur Specific [place] 1.025 (1.001-1.035) Urine Protein NEGATIVE (NEGATIVE) mg/dL Urine Glucose (UA) NEGATIVE (NEGATIVE) mg/dL Urine Ketones NEGATIVE (NEGATIVE) mg/dL Urine Occult Blood NEGATIVE (NEGATIVE) Urine Nitrite NEGATIVE (NEGATIVE) Urine Bilirubin NEGATIVE (NEGATIVE) Urine Urobilinogen 0.2 (<2.0) EU/dL Ur Leukocyte Esterase NEGATIVE (NEGATIVE) Influenza Type A RNA NEGATIVE (NEGATIVE) Influenza Type B RNA NEGATIVE (NEGATIVE) SARS-CoV-2 RNA (CATINA) POSITIVE H (NEGATIVE) Result Diagrams: 08/09/20 09:30 08/09/20 09:30 Sepsis Event Note - Evaluation Sepsis Screening Result: No Definite Risk - Focused Exam Vital Signs: Vital Signs Temp Pulse Resp BP Pulse Ox 08/09/20 12:23 65 20 138/58 L 94 L 08/09/20 11:22 66 20 135/69 95 08/09/20 10:42 80 20 131/61 94 L 08/09/20 10:00 91 20 145/71 H 92 L 08/09/20 09:22 97.2 F 81 20 139/112 H 98 - Problem List (1) Acute respiratory failure with hypoxia SNOMED Code(s): 33494844, 605173931 ICD Code: J96.01 - ACUTE RESPIRATORY FAILURE WITH HYPOXIA Status: Acute Current Visit: Yes (2) COPD (chronic obstructive pulmonary disease) SNOMED Code(s): 74990029 ICD Code: J44.9 - CHRONIC OBSTRUCTIVE PULMONARY DISEASE, UNSPECIFIED Status: Acute Current Visit: No Qualifiers: COPD type: COPD with acute exacerbation Qualified Code(s): J44.1 - Chronic obstructive pulmonary disease with (acute) exacerbation (3) COVID-19 SNOMED Code(s): 896972516 ICD Code: U07.1 - COVID-19 Status: Acute Current Visit: Yes (4) Acute bronchitis SNOMED Code(s): 68470065 ICD Code: J20.9 - ACUTE BRONCHITIS, UNSPECIFIED Status: Acute Current Visit: Yes (5) CAD (coronary artery disease) SNOMED Code(s): 51950197 ICD Code: I25.10 - ATHSCL HEART DISEASE OF [place] CORONARY ARTERY W/O ANG PCTRS Status: Chronic Current Visit: Yes (6) STEMI (ST elevation myocardial infarction) SNOMED Code(s): 02952184 ICD Code: I21.3 - ST ELEVATION (STEMI) MYOCARDIAL INFARCTION OF UNSP SITE Status: Chronic Current Visit: No Qualifiers: Involved coronary artery: unspecified coronary artery Qualified Code(s): I21.3 - ST elevation (STEMI) myocardial infarction of unspecified site Problem List Initiated/Reviewed/Updated: Yes Orders Last 24hrs: Active Orders 24 hr Category Date Time Status Patient Status [ADT] Routine ADT 08/09/20 11:33 Active Cardiac Monitoring [RC] . DIRECTED Care 08/09/20 09:34 Active EKG Documentation Completion [RC] STAT Care 08/09/20 09:34 Active Pulse Oximetry [RC] ASDIRECTED Care 08/09/20 09:34 Active Telemetry Monitoring [Cardiac Monitoring] [RC] . Care 08/09/20 13:24 Ordered DIRECTED Sodium Chloride 0.9% [Saline Flush] Med 08/09/20 09:34 Active 10 ml FLUSH ASDIRECTED PRN Sodium Chloride 0.9% [Saline Flush] Med 08/09/20 09:34 Active 2.5 ml FLUSH ASDIRECTED PRN Saline Lock Insert [OM.PC] Stat Oth 08/09/20 09:34 Ordered Resuscitation Status Routine Resus Stat 08/09/20 13:25 Ordered Medication Orders Sodium Chloride (Saline Flush) 10 ml FLUSH ASDIRECTED PRN PRN Reason: Keep Vein Open Last Admin: 08/09/20 09:41 Dose: 10 ml Documented by: [id number] Sodium Chloride (Saline Flush) 2.5 ml FLUSH ASDIRECTED PRN PRN Reason: Keep Vein Open Last Admin: 08/09/20 09:41 Dose: 2.5 ml Documented by: [id number] Assessment/Plan Comment:: This 74-year-old female admitted with acute hypoxic respiratory failure, COVID- 19, bronchitis/COPD exacerbation 1. Acute hypoxic respiratory failure -Likely secondary to bronchitis COPD exacerbation and COVID-19 -Oxygen to keep sats greater than 88% -Encourage I-S use 2. COVID-19 -Remdesivir 200 mg now followed by 100 mg IV daily x4 days -Dexamethasone 6 mg p.o. daily -Oxygen to keep sats greater than 88% -Encourage I-S use -DuoNebs as needed 3. Acute bronchitis/COPD exacerbation -Has inspiratory and expiratory wheezing noted on exam -DuoNebs scheduled -Dexamethasone as above -Continue Advair -Azithromycin 500 mg p.o. daily 4. CAD -Continue aspirin and statin -Spoke with Dr. Anne regarding beta-denise. He would like to keep bisoprolol on as patient has history of STEMI. He would like to evaluate this as an outp atient unless she continues to not get better with our treatment above. -Monitor on telemetry for palpitations -Obtain echo VTE prophylaxis: Lovenox CODE STATUS: DNR/DNI, discussed with patient Dispo: 2 days or pending improvement.
[2020-08-09] MEDS ORDERED: REMDESIVIR 200 MG in Sodium Chloride 0.9% 250 ML IV SCH (14:30)
[2020-08-09] MEDS ORDERED: Docusate Sodium 100 MG Cap PO PRN (14:48)
[2020-08-09] MEDS ORDERED: Ondansetron 4 MG/2 ML SDV IVPUSH PRN (14:48)
[2020-08-09] MEDS ORDERED: Albuterol 8 GM Inhaler INH PRN (14:54)
[2020-08-09] MEDS ORDERED: Fluticasone Propionate Nasal Spray 16 GM Bottle NASBOTH PRN (15:03)
[2020-08-09] MEDS: Clopidogrel 75 MG Tab PO SCH (15:42)
[2020-08-09] MEDS: Azithromycin 250 MG Tab PO SCH (15:42)
[2020-08-09] MEDS: Lisinopril/Hydrochlorothiazide 10-12.5 MG Tab PO SCH (15:43)
[2020-08-09] MEDS: Enoxaparin 40 MG/0.4 ML Syringe SUBCUT SCH (15:44)
[2020-08-09] MEDS: Albuterol/Ipratropium 3.0-0.5 MG/3 ML Neb Soln NEB SCH ×2 (17:35→21:00)
[2020-08-09] MEDS: Fluticasone/Salmeterol 250-50 MCG Inhalation Powder 14/Diskus INH SCH ×2 (20:59→21:55)
[2020-08-10] MEDS: Albuterol/Ipratropium 3.0-0.5 MG/3 ML Neb Soln NEB SCH ×6 (03:12→21:00)
[2020-08-10] MEDS: Pantoprazole 40 MG Tab.CR PO SCH (06:49)
[2020-08-10] MEDS: Levothyroxine 100 MCG Tab PO SCH (06:49)
--- NOTE | 2020-08-10 08:03 | PCM.PN ---
- General Info Date of Service: 08/10/20 Admission Dx/Problem (Free Text): Admission Diagnosis/Problem Admission Diagnosis/Problem Hypoxia Subjective Update: Feeling mildly improved this morning. Cough has worsened but shortness of breath is a little bit better. Denies any chest pain. Denies any abdominal pain she is tolerating diet well. No fevers or chills does report some sinus congestion which she requests her Flonase twice a day. No other concerns Functional Status: Reports: Pain Controlled, Tolerating Diet, Ambulating, Urinating - Review of Systems General: Reports: No Symptoms. Denies: Fever, Fatigue, Malaise HEENT: Reports: Sinus Congestion. Denies: Sore Throat Pulmonary: Reports: Shortness of Breath, Cough, Wheezing. Denies: Sputum Cardiovascular: Reports: Dyspnea on Exertion. Denies: Chest Pain Gastrointestinal: Reports: No Symptoms. Denies: Abdominal Pain, Nausea, Vomit ing Genitourinary: Reports: No Symptoms. Denies: Dysuria, Frequency Musculoskeletal: Reports: No Symptoms Skin: Reports: No Symptoms Neurological: Reports: No Symptoms Psychiatric: Reports: No Symptoms - Patient Data Vitals - Most Recent: Last Vital Signs Temp 96.9 F 08/10/20 03:04 Pulse 70 08/10/20 03:04 Resp 18 08/10/20 03:04 BP 130/65 08/10/20 03:04 Pulse Ox 93 L 08/10/20 03:04 Weight - Most Recent: 90.673 kg I&O - Last 24 Hours: Intake & Output 08/09/20 08/10/20 08/10/20 22:59 06:59 14:59 Intake Total 990 Output Total 0 Balance 990 Lab Results Last 24 Hours: Laboratory Results - last 24 hr 08/09/20 08/09/20 08/09/20 Range/Units 09:30 09:30 09:30 WBC 5.11 (4.0-11.0) K/uL RBC 5.05 (4.30-5.90) M/uL Hgb 14.4 (12.0-16.0) g/dL Hct 45.0 (36.0-46.0) % MCV 89.1 (80.0-98.0) fL MCH 28.5 (27.0-32.0) pg MCHC 32.0 (31.0-37.0) g/dL RDW Std Deviation 47.0 (28.0-62.0) fl RDW Coeff of Elena 15 (11.0-15.0) % Plt Count 193 (150-400) K/uL MPV 9.80 (7.40-12.00) fL Neut % (Auto) 59.5 (48.0-80.0) % Lymph % (Auto) 17.0 (16.0-40.0) % [place] % (Auto) 6.1 (0.0-15.0) % Eos % (Auto) 16.8 H (0.0-7.0) % Baso % (Auto) 0.6 (0.0-1.5) % Neut # (Auto) 3.0 (1.4-5.7) K/uL Lymph # (Auto) 0.9 (0.6-2.4) K/uL [place] # (Auto) 0.3 (0.0-0.8) K/uL Eos # (Auto) 0.9 H (0.0-0.7) K/uL Baso # (Auto) 0.0 (0.0-0.1) K/uL Nucleated RBC % 0.0 /100WBC Nucleated RBCs # 0 K/uL Lactate 1.1 (0.20-2.00) mmol/L Sodium 141 (136-145) mmol/L Potassium 4.4 (3.5-5.1) mmol/L Chloride 105 (98-107) mmol/L Carbon Dioxide 23.7 (21.0-32.0) mmol/L BUN 27 H (7.0-18.0) mg/dL Creatinine 1.3 H (0.6-1.0) mg/dL Est Cr Clr Drug Dosing 32.29 mL/min Estimated GFR (MDRD) 39.9 ml/min Glucose 118 H (74-106) mg/dL Calcium 9.2 (8.5-10.1) mg/dL Magnesium 2.1 (1.8-2.4) mg/dL Total Bilirubin 0.6 (0.2-1.0) mg/dL AST 15 (15-37) IU/L ALT 24 (14-63) IU/L Alkaline Phosphatase 130 H (46-116) U/L Troponin I < 0.050 (0.000-0.056) ng/mL C-Reactive Protein <0.20 (0.00-0.90) mg/dL B-Natriuretic Peptide (<100) PG/ML Total Protein 7.2 (6.4-8.2) g/dL Albumin 3.8 (3.4-5.0) g/dL Globulin 3.4 (2.6-4.0) g/dL Albumin/Globulin Ratio 1.1 (0.9-1.6) Urine Color Urine Appearance Urine pH (5.0-8.0) Ur Specific [place] (1.001-1.035) Urine Protein (NEGATIVE) mg/dL Urine Glucose (UA) (NEGATIVE) mg/dL Urine Ketones (NEGATIVE) mg/dL Urine Occult Blood (NEGATIVE) Urine Nitrite (NEGATIVE) Urine Bilirubin (NEGATIVE) Urine Urobilinogen (<2.0) EU/dL Ur Leukocyte Esterase (NEGATIVE) Influenza Type A RNA (NEGATIVE) Influenza Type B RNA (NEGATIVE) SARS-CoV-2 RNA (CATINA) (NEGATIVE) 08/09/20 08/09/20 08/09/20 Range/Units 09:30 09:56 10:10 WBC (4.0-11.0) K/uL RBC (4.30-5.90) M/uL Hgb (12.0-16.0) g/dL Hct (36.0-46.0) % MCV (80.0-98.0) fL MCH (27.0-32.0) pg MCHC (31.0-37.0) g/dL RDW Std Deviation (28.0-62.0) fl RDW Coeff of Elena (11.0-15.0) % Plt Count (150-400) K/uL MPV (7.40-12.00) fL Neut % (Auto) (48.0-80.0) % Lymph % (Auto) (16.0-40.0) % [place] % (Auto) (0.0-15.0) % Eos % (Auto) (0.0-7.0) % Baso % (Auto) (0.0-1.5) % Neut # (Auto) (1.4-5.7) K/uL Lymph # (Auto) (0.6-2.4) K/uL [place] # (Auto) (0.0-0.8) K/uL Eos # (Auto) (0.0-0.7) K/uL Baso # (Auto) (0.0-0.1) K/uL Nucleated RBC % /100WBC Nucleated RBCs # K/uL Lactate (0.20-2.00) mmol/L Sodium (136-145) mmol/L Potassium (3.5-5.1) mmol/L Chloride (98-107) mmol/L Carbon Dioxide (21.0-32.0) mmol/L BUN (7.0-18.0) mg/dL Creatinine (0.6-1.0) mg/dL Est Cr Clr Drug Dosing mL/min Estimated GFR (MDRD) ml/min Glucose (74-106) mg/dL Calcium (8.5-10.1) mg/dL Magnesium (1.8-2.4) mg/dL Total Bilirubin (0.2-1.0) mg/dL AST (15-37) IU/L ALT (14-63) IU/L Alkaline Phosphatase (46-116) U/L Troponin I (0.000-0.056) ng/mL C-Reactive Protein (0.00-0.90) mg/dL B-Natriuretic Peptide 20 (<100) PG/ML Total Protein (6.4-8.2) g/dL Albumin (3.4-5.0) g/dL Globulin (2.6-4.0) g/dL Albumin/Globulin Ratio (0.9-1.6) Urine Color YELLOW Urine Appearance CLEAR Urine pH 5.5 (5.0-8.0) Ur Specific [place] 1.025 (1.001-1.035) Urine Protein NEGATIVE (NEGATIVE) mg/dL Urine Glucose (UA) NEGATIVE (NEGATIVE) mg/dL Urine Ketones NEGATIVE (NEGATIVE) mg/dL Urine Occult Blood NEGATIVE (NEGATIVE) Urine Nitrite NEGATIVE (NEGATIVE) Urine Bilirubin NEGATIVE (NEGATIVE) Urine Urobilinogen 0.2 (<2.0) EU/dL Ur Leukocyte Esterase NEGATIVE (NEGATIVE) Influenza Type A RNA NEGATIVE (NEGATIVE) Influenza Type B RNA NEGATIVE (NEGATIVE) SARS-CoV-2 RNA (CATINA) POSITIVE H (NEGATIVE) Med Orders - Current: Current Medications Albuterol (Ventolin Hfa) 0 gm INH Q6H PRN PRN Reason: Shortness of Breath Albuterol/Ipratropium (Duoneb 3.0-0.5 Mg/3 Ml) 3 ml NEB Q4HRRT [facility] Last Admin: 08/10/20 03:12 Dose: 3 ml Documented by: Aspirin (Halfprin) 81 mg PO DAILY [facility] Atorvastatin Calcium (Lipitor) 40 mg PO DAILY [facility] Azithromycin (Zithromax) 500 mg PO Q24H [facility] Last Admin: 08/09/20 15:42 Dose: 500 mg Documented by: Clopidogrel Bisulfate (Plavix) 75 mg PO DAILY [facility] Last Admin: 08/09/20 15:42 Dose: 75 mg Documented by: Dexamethasone (Dexamethasone) 6 mg PO DAILY [facility] Docusate Sodium (Colace) 100 mg PO BID PRN PRN Reason: Constipation Enoxaparin Sodium (Lovenox) 40 mg SUBCUT Q24H [facility] Last Admin: 08/09/20 15:44 Dose: 40 mg Documented by: Fluticasone Propionate (Flonase) 1 gm NASBOTH BID PRN PRN Reason: Allergies Lisinopril/HCTZ (Lisinopril-Hctz 10-12.5 Mg) 0.5 tab PO DAILY [facility] Last Admin: 08/09/20 15:43 Dose: 0.5 tab Documented by: Remdesivir 100 mg/ Sodium (Chloride) 100 mls @ 100 mls/hr IV Q24H [facility] Stop: 08/13/20 15:59 Levothyroxine Sodium (Synthroid) 100 mcg PO DAILY@0700 [facility] Last Admin: 08/10/20 06:49 Dose: 100 mcg Documented by: Ondansetron HCl (Zofran) 4 mg IVPUSH Q4H PRN PRN Reason: Nausea Pantoprazole Sodium (Protonix) 40 mg PO ACBREAKFAST [facility] Last Admin: 08/10/20 06:49 Dose: 40 mg Documented by: Bisoprolol 5 Mg (Tablet) 0.5 each PO DAILY [facility] Fluticasone/Salmeterol (Advair Diskus 250-50) 1 puff INH BID [facility] Last Admin: 08/09/20 21:55 Dose: 1 puff Documented by: Sodium Chloride (Saline Flush) 2.5 ml FLUSH ASDIRECTED PRN PRN Reason: Keep Vein Open Discontinued Medications Albuterol/Ipratropium (Duoneb 3.0-0.5 Mg/3 Ml) 3 ml NEB ONETIME ONE Stop: 08/09/20 09:35 Last Admin: 08/09/20 09:41 Dose: 3 ml Documented by: Remdesivir 200 mg/ Sodium (Chloride) 250 mls @ 250 mls/hr IV ONETIME ONE Stop: 08/09/20 13:24 Last Admin: 08/09/20 15:06 Dose: Not Given Documented by: Remdesivir 200 mg/ Sodium (Chloride) 250 mls @ 250 mls/hr IV ONETIME [place] Stop: 08/09/20 16:00 Last Admin: 08/09/20 15:06 Dose: 250 mls/hr Documented by: Methylprednisolone Sodium Succinate (Solu-Medrol) 125 mg IVPUSH ONETIME ONE Stop: 08/09/20 09:35 Last Admin: 08/09/20 09:41 Dose: 125 mg Documented by: Sodium Chloride (Saline Flush) 10 ml FLUSH ASDIRECTED PRN PRN Reason: Keep Vein Open Last Admin: 08/09/20 09:41 Dose: 10 ml Documented by: Sodium Chloride (Saline Flush) 2.5 ml FLUSH ASDIRECTED PRN PRN Reason: Keep Vein Open Last Admin: 08/09/20 09:41 Dose: 2.5 ml Documented by: - Exam Quality Assessment: Supplemental Oxygen (1 to 2 L), DVT Prophylaxis (Lovenox) General: Alert, Oriented Lungs: Wheezing. No: Normal Respiratory Effort (Mild dyspnea with exertion) Cardiovascular: Regular Rate, Regular Rhythm GI/Abdominal Exam: Normal Bowel Sounds, Soft, Non-Tender Extremities: Normal Inspection, Normal Range of Motion, Non-Tender, No Pedal Edema Wound/Incisions: Healing Well Neurological: No New Focal Deficit Psy/Mental Status: Alert, Normal Affect, Normal Mood Sepsis Event Note - Evaluation Sepsis Screening Result: No Definite Risk - Focused Exam Vital Signs: Vital Signs Temp Pulse Resp BP Pulse Ox 08/10/20 03:04 96.9 F 70 18 130/65 93 L 08/10/20 00:04 97 F 74 18 118/59 L 92 L - Problem List & Annotations (1) Acute respiratory failure with hypoxia SNOMED Code(s): 00380465, 590158287 Code(s): J96.01 - ACUTE RESPIRATORY FAILURE WITH HYPOXIA Status: Acute Current Visit: Yes (2) COPD (chronic obstructive pulmonary disease) SNOMED Code(s): 66775456 Code(s): J44.9 - CHRONIC OBSTRUCTIVE PULMONARY DISEASE, UNSPECIFIED Status: Acute Current Visit: No Qualifiers: COPD type: COPD with acute exacerbation Qualified Code(s): J44.1 - Chronic obstructive pulmonary disease with (acute) exacerbation (3) COVID-19 SNOMED Code(s): 017621405 Code(s): U07.1 - COVID-19 Status: Acute Current Visit: Yes (4) Acute bronchitis SNOMED Code(s): 62305590 Code(s): J20.9 - ACUTE BRONCHITIS, UNSPECIFIED Status: Acute Current Visit: Yes (5) CAD (coronary artery disease) SNOMED Code(s): 24101479 Code(s): I25.10 - ATHSCL HEART DISEASE OF [place] CORONARY ARTERY W/O ANG PCTRS Status: Chronic Current Visit: Yes (6) STEMI (ST elevation myocardial infarction) SNOMED Code(s): 58207765 Code(s): I21.3 - ST ELEVATION (STEMI) MYOCARDIAL INFARCTION OF UNSP SITE Status: Chronic Current Visit: No Qualifiers: Involved coronary artery: unspecified coronary artery Qualified Code(s): I21.3 - ST elevation (STEMI) myocardial infarction of unspecified site - Problem List Review Problem List Initiated/Reviewed/Updated: Yes - My Orders Last 24 Hours: My Active Orders 08/09/20 Lunch Heart Healthy Diet [DIET] 08/09/20 13:24 Telemetry Monitoring [Cardiac Monitoring] [RC] Q8H 08/09/20 13:25 Resuscitation Status Routine 08/09/20 14:48 Height and Weight [RC] DAILY Intake and Output [RC] Q12H Oxygen Therapy [RC] PRN Up With Assistance [RC] ASDIRECTED VTE/DVT Education [RC] PER UNIT ROUTINE Vital Signs [RC] Q4H Docusate Sodium [Colace] 100 mg PO BID PRN Ondansetron [Zofran] 4 mg IVPUSH Q4H PRN Sodium Chloride 0.9% [Saline Flush] 2.5 ml FLUSH ASDIRECTED PRN Saline Lock Insert [OM.PC] Routine 08/09/20 14:50 RT Aerosol Therapy [RC] ASDIRECTED 08/09/20 14:54 IS (RT) [RT Incentive Spirometry] [RC] Q1HWA Albuterol [Ventolin HFA] 0 gm INH Q6H PRN 08/09/20 14:55 RT Post Treatment Assessment [RC] Click to Edit RT Pre-Treatment Assessment [RC] Click to Edit 08/09/20 15:00 Azithromycin [Zithromax] 500 mg PO Q24H Clopidogrel [Plavix] 75 mg PO DAILY Enoxaparin [Lovenox] 40 mg SUBCUT Q24H Lisinopril/Hydrochlorothiazide [Lisinopril-HCTZ 10-12.5 MG] 0.5 tab PO DAILY 08/09/20 15:03 Fluticasone Propionate [Flonase] 1 gm NASBOTH BID PRN 08/09/20 18:00 Albuterol/Ipratropium [DuoNeb 3.0-0.5 MG/3 ML] 3 ml NEB Q4HRRT 08/09/20 21:00 Fluticasone/Salmeterol [Advair Diskus 250-50] 1 puff INH BID 08/10/20 07:00 Levothyroxine [Synthroid] 100 mcg PO DAILY@0700 08/10/20 07:22 CBC WITH AUTO DIFF [HEME] AM COMPREHENSIVE METABOLIC PN,CMP [CHEM] AM MAGNESIUM [CHEM] AM 08/10/20 07:30 Pantoprazole [ProTONIX] 40 mg PO ACBREAKFAST 08/10/20 09:00 Aspirin [Halfprin] 81 mg PO DAILY Patient's Own Medication [Ptom] 0.5 each PO DAILY atorvaSTATin [Lipitor] 40 mg PO DAILY dexAMETHasone 6 mg PO DAILY 08/10/20 14:58 Echo Comp wo Cont [US] Routine 08/10/20 15:00 Remdesivir 100 mg Sodium Chloride 0.9% [Normal Saline] 100 ml IV Q24H 08/11/20 05:11 CBC WITH AUTO DIFF [HEME] AM COMPREHENSIVE METABOLIC PN,CMP [CHEM] AM MAGNESIUM [CHEM] AM 08/12/20 05:11 CBC WITH AUTO DIFF [HEME] AM COMPREHENSIVE METABOLIC PN,CMP [CHEM] AM MAGNESIUM [CHEM] AM 08/13/20 05:11 CBC WITH AUTO DIFF [HEME] AM COMPREHENSIVE METABOLIC PN,CMP [CHEM] AM MAGNESIUM [CHEM] AM 08/14/20 05:11 CBC WITH AUTO DIFF [HEME] AM COMPREHENSIVE METABOLIC PN,CMP [CHEM] AM MAGNESIUM [CHEM] AM - Plan Plan:: This 74-year-old female admitted with acute hypoxic respiratory failure, COVID- 19, bronchitis/COPD exacerbation 1. Acute hypoxic respiratory failure - Continues to improve -Likely secondary to bronchitis COPD exacerbation and COVID-19 -Oxygen to keep sats greater than 88% -Encourage I-S use 2. COVID-19 -Remdesivir 100 mg IV daily x4 days -Solu-Medrol 80 mg 3 times daily IV due to possible COPD exacerbation -Oxygen to keep sats greater than 88% -Encourage I-S use -DuoNebs as needed 3. Acute bronchitis/COPD exacerbation -Has inspiratory and expiratory wheezing noted on exam, improved but continue -DuoNebs scheduled -We will change to Solu-Medrol as likely having COPD exacerbation -Continue Advair -Azithromycin 500 mg p.o. daily 4. CAD -Continue aspirin and statin -continue bisoprolol -Monitor on telemetry for palpitations, no arrhythmias noted on telemetry overnight -Echo pending VTE prophylaxis: Lovenox CODE STATUS: DNR/DNI, discussed with patient Dispo: 2 days or pending improvement.
[2020-08-10 08:41] LABS: CARBON DIOXIDE,CO2 25.8 mmol/L (21.0-32.0); POTASSIUM,K 4.7 mmol/L (3.5-5.1)
[2020-08-10] MEDS: Lisinopril/Hydrochlorothiazide 10-12.5 MG Tab PO SCH (08:52)
[2020-08-10] MEDS ORDERED: Benzocaine/Cetylpyridinium/Menthol Lozenge MUCMEM PRN (08:53)
[2020-08-10] MEDS: Clopidogrel 75 MG Tab PO SCH (08:54)
[2020-08-10] MEDS: Aspirin 81 MG Tab.EC PO SCH (08:54)
[2020-08-10] MEDS: Fluticasone/Salmeterol 250-50 MCG Inhalation Powder 14/Diskus INH SCH ×2 (08:55→21:18)
[2020-08-10] MEDS ORDERED: atorvaSTATin 40 MG Tab PO SCH (09:00)
[2020-08-10] MEDS ORDERED: Dexamethasone 4 MG Tab PO SCH (09:00)
[2020-08-10] MEDS: Fluticasone Propionate Nasal Spray 16 GM Bottle NASBOTH SCH ×2 (10:12→20:52)
[2020-08-10] MEDS: Benzonatate 100 MG Cap PO PRN (10:12)
[2020-08-10] MEDS: BISOPROLOL 5 MG TABLET PO SCH (10:19)
[2020-08-10] MEDS: Azithromycin 250 MG Tab PO SCH (15:21)
[2020-08-10] MEDS: REMDESIVIR 100 MG in Sodium Chloride 0.9% 100 ML IV SCH (15:22)
[2020-08-10] MEDS: Enoxaparin 40 MG/0.4 ML Syringe SUBCUT SCH (15:22)
[2020-08-10] MEDS: methylPREDNISolone Sodium Succinate 40 MG/1 ML SDV IVPUSH SCH (18:00)
[2020-08-10] MEDS: atorvaSTATin 40 MG Tab PO SCH (20:50)
[2020-08-11] MEDS: Albuterol/Ipratropium 3.0-0.5 MG/3 ML Neb Soln NEB SCH ×6 (02:04→21:00)
[2020-08-11] MEDS: methylPREDNISolone Sodium Succinate 40 MG/1 ML SDV IVPUSH SCH ×2 (02:04→10:15)
[2020-08-11] MEDS: Benzonatate 100 MG Cap PO PRN (06:11)
[2020-08-11] MEDS: Levothyroxine 100 MCG Tab PO SCH (06:11)
[2020-08-11] MEDS: Pantoprazole 40 MG Tab.CR PO SCH ×2 (06:12→07:14)
[2020-08-11 06:19] LABS: CARBON DIOXIDE,CO2 21.1 mmol/L (21.0-32.0); POTASSIUM,K 4.4 mmol/L (3.5-5.1)
--- NOTE | 2020-08-11 08:06 | PCM.PN ---
- General Info Date of Service: 08/11/20 Admission Dx/Problem (Free Text): Admission Diagnosis/Problem Admission Diagnosis/Problem Hypoxia Subjective Update: Continues to feel congested this morning slightly improved after Flonase yesterday asking for Claritin. Denies any chest pain. Reports shortness of breath has continued to improve. Reports dry hacking cough that is nonproductive. No abdominal pain nausea vomiting. She is tolerating her diet and fluids well Functional Status: Reports: Pain Controlled, Tolerating Diet, Ambulating, Urinating - Review of Systems General: Reports: No Symptoms. Denies: Fatigue, Malaise HEENT: Reports: Sinus Congestion. Denies: Sore Throat, Visual Changes Pulmonary: Reports: Shortness of Breath (Much improved), Cough (Dry) Cardiovascular: Reports: No Symptoms. Denies: Chest Pain, Dyspnea on Exertion Gastrointestinal: Reports: No Symptoms. Denies: Abdominal Pain, Nausea, Vomiting Genitourinary: Reports: No Symptoms. Denies: Dysuria, Frequency, Burning Musculoskeletal: Reports: No Symptoms Skin: Reports: No Symptoms Neurological: Reports: No Symptoms Psychiatric: Reports: No Symptoms - Patient Data Vitals - Most Recent: Last Vital Signs Temp 96.9 F 08/11/20 04:00 Pulse 77 08/11/20 04:00 Resp 20 08/11/20 04:00 BP 134/70 08/11/20 04:00 Pulse Ox 92 L 08/11/20 04:00 Weight - Most Recent: 92.079 kg I&O - Last 24 Hours: Intake & Output 08/10/20 08/11/20 08/11/20 22:59 06:59 14:59 Intake Total 1340 500 Output Total 300 700 Balance 1040 -200 Lab Results Last 24 Hours: Laboratory Results - last 24 hr 08/10/20 08/11/20 08/11/20 Range/Units 07:22 05:32 05:32 WBC 10.43 (4.0-11.0) K/uL RBC 4.64 (4.30-5.90) M/uL Hgb 12.8 (12.0-16.0) g/dL Hct 40.6 (36.0-46.0) % MCV 87.5 (80.0-98.0) fL MCH 27.6 (27.0-32.0) pg MCHC 31.5 (31.0-37.0) g/dL RDW Std Deviation 47.1 (28.0-62.0) fl RDW Coeff of Elena 15 (11.0-15.0) % Plt Count 190 (150-400) K/uL MPV 10.10 (7.40-12.00) fL Neut % (Auto) 95.7 H (48.0-80.0) % Lymph % (Auto) 3.3 L (16.0-40.0) % [place] % (Auto) 1.0 (0.0-15.0) % Eos % (Auto) 0.0 (0.0-7.0) % Baso % (Auto) 0.0 (0.0-1.5) % Neut # (Auto) 10.0 H (1.4-5.7) K/uL Lymph # (Auto) 0.3 L (0.6-2.4) K/uL [place] # (Auto) 0.1 (0.0-0.8) K/uL Eos # (Auto) 0.0 (0.0-0.7) K/uL Baso # (Auto) 0.0 (0.0-0.1) K/uL Nucleated RBC % 0.0 /100WBC Nucleated RBCs # 0 K/uL Sodium 139 138 (136-145) mmol/L Potassium 4.7 4.4 (3.5-5.1) mmol/L Chloride 104 103 (98-107) mmol/L Carbon Dioxide 25.8 21.1 (21.0-32.0) mmol/L BUN 31 H 36 H (7.0-18.0) mg/dL Creatinine 1.3 H 1.3 H (0.6-1.0) mg/dL Est Cr Clr Drug Dosing 32.29 32.29 mL/min Estimated GFR (MDRD) 39.9 39.9 ml/min Glucose 139 H 205 H (74-106) mg/dL Calcium 9.2 8.9 (8.5-10.1) mg/dL Magnesium 2.0 2.2 (1.8-2.4) mg/dL Total Bilirubin 0.3 0.2 (0.2-1.0) mg/dL AST 13 L 8 L (15-37) IU/L ALT 21 18 (14-63) IU/L Alkaline Phosphatase 117 H 103 (46-116) U/L Total Protein 7.2 6.8 (6.4-8.2) g/dL Albumin 3.6 3.4 (3.4-5.0) g/dL Globulin 3.6 3.4 (2.6-4.0) g/dL Albumin/Globulin Ratio 1.0 1.0 (0.9-1.6) Med Orders - Current: Current Medications Albuterol (Ventolin Hfa) 0 gm INH Q6H PRN PRN Reason: Shortness of Breath Albuterol/Ipratropium (Duoneb 3.0-0.5 Mg/3 Ml) 3 ml NEB Q4HRRT [facility] Last Admin: 08/11/20 05:48 Dose: 3 ml Documented by: Aspirin (Halfprin) 81 mg PO DAILY [facility] Last Admin: 08/10/20 08:54 Dose: 81 mg Documented by: Atorvastatin Calcium (Lipitor) 40 mg PO BEDTIME [facility] Last Admin: 08/10/20 20:50 Dose: 40 mg Documented by: Azithromycin (Zithromax) 500 mg PO Q24H [facility] Last Admin: 08/10/20 15:21 Dose: 500 mg Documented by: Benzocaine/Menthol (Cepacol Sore Throat) 1 lozenge MUCMEM Q2H PRN PRN Reason: cough,sore throat Benzonatate (Tessalon Perles) 100 mg PO TID PRN PRN Reason: Cough Last Admin: 08/11/20 06:11 Dose: 100 mg Documented by: Clopidogrel Bisulfate (Plavix) 75 mg PO DAILY [facility] Last Admin: 08/10/20 08:54 Dose: 75 mg Documented by: Docusate Sodium (Colace) 100 mg PO BID PRN PRN Reason: Constipation Enoxaparin Sodium (Lovenox) 40 mg SUBCUT Q24H [facility] Last Admin: 08/10/20 15:22 Dose: 40 mg Documented by: Fluticasone Propionate (Flonase) 1 gm NASBOTH BID [facility] Last Admin: 08/10/20 20:52 Dose: Not Given Documented by: Lisinopril/HCTZ (Lisinopril-Hctz 10-12.5 Mg) 0.5 tab PO DAILY [facility] Last Admin: 08/10/20 08:52 Dose: 0.5 tab Documented by: Remdesivir 100 mg/ Sodium (Chloride) 100 mls @ 100 mls/hr IV Q24H [facility] Stop: 08/13/20 15:59 Last Admin: 08/10/20 15:22 Dose: 100 mls/hr Documented by: Levothyroxine Sodium (Synthroid) 100 mcg PO DAILY@0700 [facility] Last Admin: 08/11/20 06:11 Dose: 100 mcg Documented by: Methylprednisolone Sodium Succinate (Solu-Medrol) 80 mg IVPUSH Q8H [facility] Last Admin: 08/11/20 02:04 Dose: 80 mg Documented by: Ondansetron HCl (Zofran) 4 mg IVPUSH Q4H PRN PRN Reason: Nausea Pantoprazole Sodium (Protonix) 40 mg PO ACBREAKFAST [facility] Last Admin: 08/11/20 07:14 Dose: Not Given Documented by: Bisoprolol 5 Mg (Tablet) 0.5 each PO DAILY [facility] Last Admin: 08/10/20 10:19 Dose: Not Given Documented by: Fluticasone/Salmeterol (Advair Diskus 250-50) 1 puff INH BID [facility] Last Admin: 08/10/20 21:18 Dose: 1 puff Documented by: Sodium Chloride (Saline Flush) 2.5 ml FLUSH ASDIRECTED PRN PRN Reason: Keep Vein Open Discontinued Medications Albuterol/Ipratropium (Duoneb 3.0-0.5 Mg/3 Ml) 3 ml NEB ONETIME ONE Stop: 08/09/20 09:35 Last Admin: 08/09/20 09:41 Dose: 3 ml Documented by: Atorvastatin Calcium (Lipitor) 40 mg PO DAILY [facility] Dexamethasone (Dexamethasone) 6 mg PO DAILY [facility] Last Admin: 08/10/20 08:54 Dose: 6 mg Documented by: Fluticasone Propionate (Flonase) 1 gm NASBOTH BID PRN PRN Reason: Allergies Remdesivir 200 mg/ Sodium (Chloride) 250 mls @ 250 mls/hr IV ONETIME ONE Stop: 08/09/20 13:24 Last Admin: 08/09/20 15:06 Dose: Not Given Documented by: Remdesivir 200 mg/ Sodium (Chloride) 250 mls @ 250 mls/hr IV ONETIME [facility] Stop: 08/09/20 16:00 Last Admin: 08/09/20 15:06 Dose: 250 mls/hr Documented by: Methylprednisolone Sodium Succinate (Solu-Medrol) 125 mg IVPUSH ONETIME ONE Stop: 08/09/20 09:35 Last Admin: 08/09/20 09:41 Dose: 125 mg Documented by: Sodium Chloride (Saline Flush) 10 ml FLUSH ASDIRECTED PRN PRN Reason: Keep Vein Open Last Admin: 08/09/20 09:41 Dose: 10 ml Documented by: Sodium Chloride (Saline Flush) 2.5 ml FLUSH ASDIRECTED PRN PRN Reason: Keep Vein Open Last Admin: 08/09/20 09:41 Dose: 2.5 ml Documented by: - Exam Quality Assessment: Supplemental Oxygen (Has been removed from oxygen this morning continues to statin mid 90s on room air), DVT Prophylaxis General: Alert, Oriented HEENT: Pupils Equal, Other (Continues to have sinus congestion) Neck: Supple Lungs: Clear to Auscultation, Normal Respiratory Effort. No: Wheezing Cardiovascular: Regular Rate, Regular Rhythm GI/Abdominal Exam: Normal Bowel Sounds, Soft, Non-Tender Back Exam: Normal Inspection, Full Range of Motion Extremities: Normal Inspection, Normal Range of Motion, Non-Tender, No Pedal Edema Wound/Incisions: Healing Well Neurological: No New Focal Deficit Psy/Mental Status: Alert, Normal Affect, Normal Mood Sepsis Event Note - Evaluation Sepsis Screening Result: No Definite Risk - Focused Exam Vital Signs: Vital Signs Temp Pulse Resp BP Pulse Ox 08/11/20 04:00 96.9 F 77 20 134/70 92 L 08/10/20 23:52 98 F 79 20 121/58 L 92 L - Problem List & Annotations (1) Acute respiratory failure with hypoxia SNOMED Code(s): 27989911, 075076551 Code(s): J96.01 - ACUTE RESPIRATORY FAILURE WITH HYPOXIA Status: Acute Current Visit: Yes (2) COPD (chronic obstructive pulmonary disease) SNOMED Code(s): 54046989 Code(s): J44.9 - CHRONIC OBSTRUCTIVE PULMONARY DISEASE, UNSPECIFIED Status: Acute Current Visit: No Qualifiers: COPD type: COPD with acute exacerbation Qualified Code(s): J44.1 - Chronic obstructive pulmonary disease with (acute) exacerbation (3) COVID-19 SNOMED Code(s): 955949566 Code(s): U07.1 - COVID-19 Status: Acute Current Visit: Yes (4) Acute bronchitis SNOMED Code(s): 55399959 Code(s): J20.9 - ACUTE BRONCHITIS, UNSPECIFIED Status: Acute Current Visit: Yes (5) CAD (coronary artery disease) SNOMED Code(s): 37223057 Code(s): 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 Current Visit: Yes (6) STEMI (ST elevation myocardial infarction) SNOMED Code(s): 45926182 Code(s): I21.3 - ST ELEVATION (STEMI) MYOCARDIAL INFARCTION OF UNSP SITE Status: Chronic Current Visit: No Qualifiers: Involved coronary artery: unspecified coronary artery Qualified Code(s): I21.3 - ST elevation (STEMI) myocardial infarction of unspecified site - Problem List Review Problem List Initiated/Reviewed/Updated: Yes - My Orders Last 24 Hours: My Active Orders 08/10/20 07:30 Pantoprazole [ProTONIX] 40 mg PO ACBREAKFAST 08/10/20 08:53 Benzocaine/Cetylpyrd/Menthol [Cepacol Sore Throat] 1 lozenge MUCMEM Q2H PRN Benzonatate [Tessalon Perles] 100 mg PO TID PRN 08/10/20 09:00 Aspirin [Halfprin] 81 mg PO DAILY Fluticasone Propionate [Flonase] 1 gm NASBOTH BID Patient's Own Medication [Ptom] 0.5 each PO DAILY 08/10/20 14:58 Echo Comp wo Cont [US] Routine 08/10/20 15:00 Remdesivir 100 mg Sodium Chloride 0.9% [Normal Saline] 100 ml IV Q24H 08/10/20 18:00 methylPREDNISolone Sod Succ [Solu-MEDROL] 80 mg IVPUSH Q8H 08/10/20 21:00 atorvaSTATin [Lipitor] 40 mg PO BEDTIME 08/12/20 05:11 CBC WITH AUTO DIFF [HEME] AM COMPREHENSIVE METABOLIC PN,CMP [CHEM] AM MAGNESIUM [CHEM] AM 08/13/20 05:11 CBC WITH AUTO DIFF [HEME] AM COMPREHENSIVE METABOLIC PN,CMP [CHEM] AM MAGNESIUM [CHEM] AM 08/14/20 05:11 CBC WITH AUTO DIFF [HEME] AM COMPREHENSIVE METABOLIC PN,CMP [CHEM] AM MAGNESIUM [CHEM] AM - Plan Plan:: This 74-year-old female admitted with acute hypoxic respiratory failure, COVID- 19, bronchitis/COPD exacerbation 1. Acute hypoxic respiratory failure -Resolved -Likely secondary to bronchitis COPD exacerbation and COVID-19 -Oxygen to keep sats greater than 88% -Encourage I-S use 2. COVID-19 -Remdesivir 100 mg IV daily x4 days -Discontinue Solu-Medrol will restart dexamethasone 6 mg in the morning -Oxygen to keep sats greater than 88% -Encourage I-S use -DuoNebs as needed 3. Acute bronchitis/COPD exacerbation -Wheezing has improved significantly not heard this morning on exam -DuoNebs scheduled -Continue dexamethasone -Continue Advair -Azithromycin 500 mg p.o. daily 4. CAD -Continue aspirin and statin -continue bisoprolol -Monitor on telemetry for palpitations, no arrhythmias noted on telemetry overnight -Echo pending VTE prophylaxis: Lovenox CODE STATUS: DNR/DNI Dispo: Possible discharge in 1 to 2 days
[2020-08-11] MEDS: Fluticasone/Salmeterol 250-50 MCG Inhalation Powder 14/Diskus INH SCH ×2 (09:13→21:00)
[2020-08-11] MEDS: Lisinopril/Hydrochlorothiazide 10-12.5 MG Tab PO SCH (09:51)
[2020-08-11] MEDS: Clopidogrel 75 MG Tab PO SCH (09:51)
[2020-08-11] MEDS: Aspirin 81 MG Tab.EC PO SCH (09:51)
[2020-08-11] MEDS: Fluticasone Propionate Nasal Spray 16 GM Bottle NASBOTH SCH ×2 (09:52→20:25)
[2020-08-11] MEDS: BISOPROLOL 5 MG TABLET PO SCH (09:53)
[2020-08-11] MEDS: Loratadine 10 MG Tab PO SCH (10:05)
[2020-08-11] MEDS: Enoxaparin 40 MG/0.4 ML Syringe SUBCUT SCH (14:26)
[2020-08-11] MEDS: Azithromycin 250 MG Tab PO SCH (14:27)
[2020-08-11] MEDS: REMDESIVIR 100 MG in Sodium Chloride 0.9% 100 ML IV SCH (15:23)
[2020-08-11] MEDS: atorvaSTATin 40 MG Tab PO SCH (20:26)
[2020-08-12] MEDS: Albuterol/Ipratropium 3.0-0.5 MG/3 ML Neb Soln NEB SCH ×6 (02:52→22:06)
[2020-08-12 06:13] LABS: CARBON DIOXIDE,CO2 23.7 mmol/L (21.0-32.0); POTASSIUM,K 4.4 mmol/L (3.5-5.1)
[2020-08-12] MEDS: Pantoprazole 40 MG Tab.CR PO SCH (06:50)
[2020-08-12] MEDS: Levothyroxine 100 MCG Tab PO SCH (06:50)
[2020-08-12] MEDS: Dexamethasone 4 MG Tab PO SCH (09:36)
[2020-08-12] MEDS: Lisinopril/Hydrochlorothiazide 10-12.5 MG Tab PO SCH (09:37)
[2020-08-12] MEDS: Aspirin 81 MG Tab.EC PO SCH (09:37)
[2020-08-12] MEDS: Loratadine 10 MG Tab PO SCH (09:38)
[2020-08-12] MEDS: Clopidogrel 75 MG Tab PO SCH (09:38)
[2020-08-12] MEDS: Fluticasone Propionate Nasal Spray 16 GM Bottle NASBOTH SCH ×2 (09:39→20:25)
[2020-08-12] MEDS: Fluticasone/Salmeterol 250-50 MCG Inhalation Powder 14/Diskus INH SCH ×2 (09:39→22:06)
[2020-08-12] MEDS: BISOPROLOL 5 MG TABLET PO SCH (09:40)
[2020-08-12] MEDS: guaiFENesin 600 MG Tab.ER PO SCH ×2 (10:35→20:24)
--- NOTE | 2020-08-12 10:48 | PCM.PN ---
- General Info Date of Service: 08/12/20 Admission Dx/Problem (Free Text): Admission Diagnosis/Problem Admission Diagnosis/Problem Hypoxia Subjective Update: On initial rounds this morning patient was significantly short of breath and feeling like she could not clear congestion out of her chest. Asking for some medication to help with this. Denies any chest pain reports shortness of breath especially with ambulation or activity. Denies any nausea vomiting dysuria or diarrhea. Continues to feel improved but still not 100%. Needing oxygen on and off during the night. Functional Status: Reports: Pain Controlled, Tolerating Diet, Ambulating, Urinating - Review of Systems General: Reports: Fatigue HEENT: Reports: Sinus Congestion (Improving slowly) Pulmonary: Reports: Shortness of Breath, Cough, Other (Feels very congested and like she cannot get phlegm up). Denies: Sputum Cardiovascular: Reports: Dyspnea on Exertion. Denies: Chest Pain Gastrointestinal: Reports: No Symptoms. Denies: Abdominal Pain, Nausea, Vomiting Genitourinary: Reports: No Symptoms. Denies: Dysuria, Frequency Musculoskeletal: Reports: No Symptoms Skin: Reports: No Symptoms Neurological: Reports: No Symptoms Psychiatric: Reports: No Symptoms - Patient Data Vitals - Most Recent: Last Vital Signs Temp 96.8 F L 08/12/20 09:00 Pulse 78 08/12/20 09:00 Resp 18 08/12/20 09:00 BP 122/88 08/12/20 09:00 Pulse Ox 94 L 08/12/20 09:00 Weight - Most Recent: 92.442 kg I&O - Last 24 Hours: Intake & Output 08/11/20 08/12/20 08/12/20 22:59 06:59 14:59 Intake Total 840 800 920 Output Total 400 1000 Balance 440 -200 920 Lab Results Last 24 Hours: Laboratory Results - last 24 hr 08/12/20 08/12/20 Range/Units 05:20 05:20 WBC 11.86 H (4.0-11.0) K/uL RBC 4.69 (4.30-5.90) M/uL Hgb 13.3 (12.0-16.0) g/dL Hct 41.3 (36.0-46.0) % MCV 88.1 (80.0-98.0) fL MCH 28.4 (27.0-32.0) pg MCHC 32.2 (31.0-37.0) g/dL RDW Std Deviation 47.6 (28.0-62.0) fl RDW Coeff of Elena 15 (11.0-15.0) % Plt Count 188 (150-400) K/uL MPV 10.20 (7.40-12.00) fL Neut % (Auto) 90.1 H (48.0-80.0) % Lymph % (Auto) 4.0 L (16.0-40.0) % [place] % (Auto) 5.9 (0.0-15.0) % Eos % (Auto) 0.0 (0.0-7.0) % Baso % (Auto) 0.0 (0.0-1.5) % Neut # (Auto) 10.7 H (1.4-5.7) K/uL Lymph # (Auto) 0.5 L (0.6-2.4) K/uL [place] # (Auto) 0.7 (0.0-0.8) K/uL Eos # (Auto) 0.0 (0.0-0.7) K/uL Baso # (Auto) 0.0 (0.0-0.1) K/uL Nucleated RBC % 0.0 /100WBC Nucleated RBCs # 0 K/uL Sodium 139 (136-145) mmol/L Potassium 4.4 (3.5-5.1) mmol/L Chloride 105 (98-107) mmol/L Carbon Dioxide 23.7 (21.0-32.0) mmol/L BUN 39 H (7.0-18.0) mg/dL Creatinine 1.2 H (0.6-1.0) mg/dL Est Cr Clr Drug Dosing 34.98 mL/min Estimated GFR (MDRD) 43.8 ml/min Glucose 145 H (74-106) mg/dL Calcium 9.0 (8.5-10.1) mg/dL Magnesium 2.3 (1.8-2.4) mg/dL Total Bilirubin 0.2 (0.2-1.0) mg/dL AST 10 L (15-37) IU/L ALT 19 (14-63) IU/L Alkaline Phosphatase 94 (46-116) U/L Total Protein 6.6 (6.4-8.2) g/dL Albumin 3.3 L (3.4-5.0) g/dL Globulin 3.3 (2.6-4.0) g/dL Albumin/Globulin Ratio 1.0 (0.9-1.6) Med Orders - Current: Current Medications Albuterol (Ventolin Hfa) 0 gm INH Q6H PRN PRN Reason: Shortness of Breath Albuterol/Ipratropium (Duoneb 3.0-0.5 Mg/3 Ml) 3 ml NEB Q4HRRT [facility] Last Admin: 08/12/20 10:15 Dose: 3 ml Documented by: Aspirin (Halfprin) 81 mg PO DAILY [facility] Last Admin: 08/12/20 09:37 Dose: 81 mg Documented by: Atorvastatin Calcium (Lipitor) 40 mg PO BEDTIME [facility] Last Admin: 08/11/20 20:26 Dose: 40 mg Documented by: Azithromycin (Zithromax) 500 mg PO Q24H [facility] Last Admin: 08/11/20 14:27 Dose: 500 mg Documented by: Benzocaine/Menthol (Cepacol Sore Throat) 1 lozenge MUCMEM Q2H PRN PRN Reason: cough,sore throat Benzonatate (Tessalon Perles) 100 mg PO TID PRN PRN Reason: Cough Last Admin: 08/11/20 06:11 Dose: 100 mg Documented by: Clopidogrel Bisulfate (Plavix) 75 mg PO DAILY [facility] Last Admin: 08/12/20 09:38 Dose: 75 mg Documented by: Dexamethasone (Dexamethasone) 6 mg PO DAILY [facility] Last Admin: 08/12/20 09:36 Dose: 6 mg Documented by: Docusate Sodium (Colace) 100 mg PO BID PRN PRN Reason: Constipation Enoxaparin Sodium (Lovenox) 40 mg SUBCUT Q24H [facility] Last Admin: 08/11/20 14:26 Dose: 40 mg Documented by: Fluticasone Propionate (Flonase) 1 gm NASBOTH BID [facility] Last Admin: 08/12/20 09:39 Dose: 1 spray Documented by: Guaifenesin (Mucinex) 600 mg PO BID [facility] Last Admin: 08/12/20 10:35 Dose: 600 mg Documented by: Lisinopril/HCTZ (Lisinopril-Hctz 10-12.5 Mg) 0.5 tab PO DAILY [facility] Last Admin: 08/12/20 09:37 Dose: 0.5 tab Documented by: Remdesivir 100 mg/ Sodium (Chloride) 100 mls @ 100 mls/hr IV Q24H [facility] Stop: 08/13/20 15:59 Last Admin: 08/11/20 15:23 Dose: 100 mls/hr Documented by: Levothyroxine Sodium (Synthroid) 100 mcg PO DAILY@0700 [facility] Last Admin: 08/12/20 06:50 Dose: 100 mcg Documented by: Loratadine (Claritin) 10 mg PO DAILY [facility] Last Admin: 08/12/20 09:38 Dose: 10 mg Documented by: Ondansetron HCl (Zofran) 4 mg IVPUSH Q4H PRN PRN Reason: Nausea Pantoprazole Sodium (Protonix) 40 mg PO ACBREAKFAST [facility] Last Admin: 08/12/20 06:50 Dose: 40 mg Documented by: Bisoprolol 5 Mg (Tablet) 0.5 each PO DAILY [facility] Last Admin: 08/12/20 09:40 Dose: 0.5 each Documented by: Fluticasone/Salmeterol (Advair Diskus 250-50) 1 puff INH BID [facility] Last Admin: 08/12/20 09:39 Dose: 1 puff Documented by: Sodium Chloride (Saline Flush) 2.5 ml FLUSH ASDIRECTED PRN PRN Reason: Keep Vein Open Discontinued Medications Albuterol/Ipratropium (Duoneb 3.0-0.5 Mg/3 Ml) 3 ml NEB ONETIME ONE Stop: 08/09/20 09:35 Last Admin: 08/09/20 09:41 Dose: 3 ml Documented by: Atorvastatin Calcium (Lipitor) 40 mg PO DAILY [facility] Dexamethasone (Dexamethasone) 6 mg PO DAILY [facility] Last Admin: 08/10/20 08:54 Dose: 6 mg Documented by: Fluticasone Propionate (Flonase) 1 gm NASBOTH BID PRN PRN Reason: Allergies Remdesivir 200 mg/ Sodium (Chloride) 250 mls @ 250 mls/hr IV ONETIME ONE Stop: 08/09/20 13:24 Last Admin: 08/09/20 15:06 Dose: Not Given Documented by: Remdesivir 200 mg/ Sodium (Chloride) 250 mls @ 250 mls/hr IV ONETIME [facility] Stop: 08/09/20 16:00 Last Admin: 08/09/20 15:06 Dose: 250 mls/hr Documented by: Methylprednisolone Sodium Succinate (Solu-Medrol) 125 mg IVPUSH ONETIME ONE Stop: 08/09/20 09:35 Last Admin: 08/09/20 09:41 Dose: 125 mg Documented by: Methylprednisolone Sodium Succinate (Solu-Medrol) 80 mg IVPUSH Q8H [facility] Last Admin: 08/11/20 10:15 Dose: 80 mg Documented by: Sodium Chloride (Saline Flush) 10 ml FLUSH ASDIRECTED PRN PRN Reason: Keep Vein Open Last Admin: 08/09/20 09:41 Dose: 10 ml Documented by: Sodium Chloride (Saline Flush) 2.5 ml FLUSH ASDIRECTED PRN PRN Reason: Keep Vein Open Last Admin: 08/09/20 09:41 Dose: 2.5 ml Documented by: - Exam Quality Assessment: Supplemental Oxygen (1 L intermittently and with activity), DVT Prophylaxis General: Alert, Oriented Neck: Supple Lungs: Clear to Auscultation. No: Normal Respiratory Effort (Dyspnea noted this morning improved after 1 L of oxygen was placed sats were noted at 87- 88% prior to oxygen placement) Cardiovascular: Regular Rate, Regular Rhythm GI/Abdominal Exam: Normal Bowel Sounds, Soft, Non-Tender Extremities: Normal Inspection, Normal Range of Motion, Non-Tender, No Pedal Edema Neurological: No New Focal Deficit Psy/Mental Status: Alert, Normal Affect, Normal Mood Sepsis Event Note - Evaluation Sepsis Screening Result: No Definite Risk - Focused Exam Vital Signs: Vital Signs Temp Pulse Resp BP Pulse Ox 08/12/20 09:00 96.8 F L 78 18 122/88 94 L 08/12/20 03:01 97.3 F 69 18 130/68 92 L 08/11/20 23:57 96.9 F 69 18 142/67 H 92 L - Problem List & Annotations (1) Acute respiratory failure with hypoxia SNOMED Code(s): 94121910, 499359241 Code(s): J96.01 - ACUTE RESPIRATORY FAILURE WITH HYPOXIA Status: Acute Current Visit: Yes (2) COPD (chronic obstructive pulmonary disease) SNOMED Code(s): 42030146 Code(s): J44.9 - CHRONIC OBSTRUCTIVE PULMONARY DISEASE, UNSPECIFIED Status: Acute Current Visit: No Qualifiers: COPD type: COPD with acute exacerbation Qualified Code(s): J44.1 - Chronic obstructive pulmonary disease with (acute) exacerbation (3) COVID-19 SNOMED Code(s): 010771064 Code(s): U07.1 - COVID-19 Status: Acute Current Visit: Yes (4) Acute bronchitis SNOMED Code(s): 17293958 Code(s): J20.9 - ACUTE BRONCHITIS, UNSPECIFIED Status: Acute Current Visit: Yes (5) CAD (coronary artery disease) SNOMED Code(s): 53136227 Code(s): I25.10 - ATHSCL HEART DISEASE OF [place] CORONARY ARTERY W/O ANG PCTRS Status: Chronic Current Visit: Yes (6) STEMI (ST elevation myocardial infarction) SNOMED Code(s): 12321721 Code(s): I21.3 - ST ELEVATION (STEMI) MYOCARDIAL INFARCTION OF UNSP SITE Status: Chronic Current Visit: No Qualifiers: Involved coronary artery: unspecified coronary artery Qualified Code(s): I21.3 - ST elevation (STEMI) myocardial infarction of unspecified site - Problem List Review Problem List Initiated/Reviewed/Updated: Yes - My Orders Last 24 Hours: My Active Orders 08/11/20 10:00 Loratadine [Claritin] 10 mg PO DAILY 08/12/20 09:00 dexAMETHasone 6 mg PO DAILY 08/12/20 09:30 guaiFENesin [Mucinex] 600 mg PO BID 08/13/20 05:11 CBC WITH AUTO DIFF [HEME] AM COMPREHENSIVE METABOLIC PN,CMP [CHEM] AM MAGNESIUM [CHEM] AM 08/14/20 05:11 CBC WITH AUTO DIFF [HEME] AM COMPREHENSIVE METABOLIC PN,CMP [CHEM] AM MAGNESIUM [CHEM] AM - Plan Plan:: This 74-year-old female admitted with acute hypoxic respiratory failure, COVID- 19, bronchitis/COPD exacerbation 1. COVID-19/acute hypoxic respiratory failure -Remdesivir 100 mg IV daily x4 days - Dexamethasone 6 mg in the morning -Oxygen to keep sats greater than 88% -Has been needing oxygen with exertion -Encourage I-S use -DuoNebs as needed 2. Acute bronchitis/COPD exacerbation -DuoNebs scheduled -Continue dexamethasone -Continue Advair -Azithromycin 500 mg p.o. daily x5 days 3. CAD -Continue aspirin and statin -continue bisoprolol -Monitor on telemetry for palpitations, no arrhythmias noted on telemetry overnight -Echo pending VTE prophylaxis: Lovenox CODE STATUS: DNR/DNI Dispo: Possible discharge in 1 to 2 days did discuss at length the possibility of home oxygen on discharge. She verbalized understanding
[2020-08-12] MEDS: Enoxaparin 40 MG/0.4 ML Syringe SUBCUT SCH (14:22)
[2020-08-12] MEDS: Azithromycin 250 MG Tab PO SCH (14:22)
[2020-08-12] MEDS: REMDESIVIR 100 MG in Sodium Chloride 0.9% 100 ML IV SCH (14:23)
[2020-08-12] MEDS: atorvaSTATin 40 MG Tab PO SCH (20:24)
[2020-08-13] MEDS: Albuterol/Ipratropium 3.0-0.5 MG/3 ML Neb Soln NEB SCH ×6 (01:58→21:09)
[2020-08-13 06:27] LABS: CARBON DIOXIDE,CO2 25.7 mmol/L (21.0-32.0); POTASSIUM,K 4.4 mmol/L (3.5-5.1)
[2020-08-13] MEDS: Pantoprazole 40 MG Tab.CR PO SCH (06:49)
[2020-08-13] MEDS: Levothyroxine 100 MCG Tab PO SCH (06:49)
[2020-08-13] MEDS: Lisinopril/Hydrochlorothiazide 10-12.5 MG Tab PO SCH (08:55)
[2020-08-13] MEDS: Clopidogrel 75 MG Tab PO SCH (08:56)
[2020-08-13] MEDS: guaiFENesin 600 MG Tab.ER PO SCH ×2 (08:56→20:27)
[2020-08-13] MEDS: Dexamethasone 4 MG Tab PO SCH (08:56)
[2020-08-13] MEDS: Loratadine 10 MG Tab PO SCH (08:56)
[2020-08-13] MEDS: Aspirin 81 MG Tab.EC PO SCH (08:56)
[2020-08-13] MEDS: BISOPROLOL 5 MG TABLET PO SCH (08:57)
[2020-08-13] MEDS: Fluticasone Propionate Nasal Spray 16 GM Bottle NASBOTH SCH ×2 (08:59→21:04)
[2020-08-13] MEDS: Fluticasone/Salmeterol 250-50 MCG Inhalation Powder 14/Diskus INH SCH ×2 (08:59→21:04)
[2020-08-13] MEDS ORDERED: Aloe Vera/Sodium Chloride Gel 14.1 GM Tube NAS PRN (09:30)
--- NOTE | 2020-08-13 10:04 | ECHO ---
EXAM DATE: 08/09/20 PATIENT'S AGE: 74 The ECHO report has been scanned into [employer] and can be seen in this patient's EMR (Electronic Medical Record) under the REPORTS section. The report has also been scanned into PACS. [facility]
--- NOTE | 2020-08-13 10:27 | PCM.PN ---
- General Info Date of Service: 08/13/20 Admission Dx/Problem (Free Text): Admission Diagnosis/Problem Admission Diagnosis/Problem Hypoxia Subjective Update: Continues to slowly improve. Continues to have shortness of breath with exertion. Coughing is increased with some congestion and intermittent production. Denies any chest pain. She is eating and drinking well she is asking if she can get up ambulating in the room as she feels she needs to be up walking more. We did discuss possibility of home oxygen at least with activity. She understands and agrees with this if needed. Functional Status: Reports: Pain Controlled, Tolerating Diet, Ambulating, Urinating - Review of Systems General: Reports: No Symptoms. Denies: Fatigue, Malaise HEENT: Reports: Sinus Congestion Pulmonary: Reports: Shortness of Breath (On exertion), Cough, Sputum Cardiovascular: Reports: Dyspnea on Exertion Gastrointestinal: Reports: No Symptoms. Denies: Abdominal Pain, Nausea, Vomiting Genitourinary: Reports: No Symptoms. Denies: Dysuria, Frequency, Burning Musculoskeletal: Reports: No Symptoms Skin: Reports: No Symptoms Neurological: Reports: No Symptoms Psychiatric: Reports: No Symptoms - Patient Data Vitals - Most Recent: Last Vital Signs Temp 97.2 F 08/13/20 08:00 Pulse 77 08/13/20 08:00 Resp 18 08/13/20 08:00 BP 133/69 08/13/20 08:00 Pulse Ox 94 L 08/13/20 08:00 Weight - Most Recent: 92.714 kg I&O - Last 24 Hours: Intake & Output 08/12/20 08/13/20 08/13/20 22:59 06:59 14:59 Intake Total 1400 1340 Output Total 800 200 Balance 600 1140 Lab Results Last 24 Hours: Laboratory Results - last 24 hr 08/13/20 08/13/20 Range/Units 05:55 05:55 WBC 8.78 (4.0-11.0) K/uL RBC 4.61 (4.30-5.90) M/uL Hgb 12.9 (12.0-16.0) g/dL Hct 40.8 (36.0-46.0) % MCV 88.5 (80.0-98.0) fL MCH 28.0 (27.0-32.0) pg MCHC 31.6 (31.0-37.0) g/dL RDW Std Deviation 47.8 (28.0-62.0) fl RDW Coeff of Elena 15 (11.0-15.0) % Plt Count 181 (150-400) K/uL MPV 10.30 (7.40-12.00) fL Neut % (Auto) 86.9 H (48.0-80.0) % Lymph % (Auto) 6.6 L (16.0-40.0) % [place] % (Auto) 6.5 (0.0-15.0) % Eos % (Auto) 0.0 (0.0-7.0) % Baso % (Auto) 0.0 (0.0-1.5) % Neut # (Auto) 7.6 H (1.4-5.7) K/uL Lymph # (Auto) 0.6 (0.6-2.4) K/uL [place] # (Auto) 0.6 (0.0-0.8) K/uL Eos # (Auto) 0.0 (0.0-0.7) K/uL Baso # (Auto) 0.0 (0.0-0.1) K/uL Nucleated RBC % 0.0 /100WBC Nucleated RBCs # 0 K/uL Sodium 137 (136-145) mmol/L Potassium 4.4 (3.5-5.1) mmol/L Chloride 102 (98-107) mmol/L Carbon Dioxide 25.7 (21.0-32.0) mmol/L BUN 39 H (7.0-18.0) mg/dL Creatinine 1.2 H (0.6-1.0) mg/dL Est Cr Clr Drug Dosing 34.98 mL/min Estimated GFR (MDRD) 43.8 ml/min Glucose 133 H (74-106) mg/dL Calcium 8.7 (8.5-10.1) mg/dL Magnesium 2.2 (1.8-2.4) mg/dL Total Bilirubin 0.3 (0.2-1.0) mg/dL AST 14 L (15-37) IU/L ALT 27 (14-63) IU/L Alkaline Phosphatase 92 (46-116) U/L Total Protein 6.6 (6.4-8.2) g/dL Albumin 3.2 L (3.4-5.0) g/dL Globulin 3.4 (2.6-4.0) g/dL Albumin/Globulin Ratio 0.9 (0.9-1.6) Med Orders - Current: Current Medications Albuterol (Ventolin Hfa) 0 gm INH Q6H PRN PRN Reason: Shortness of Breath Albuterol/Ipratropium (Duoneb 3.0-0.5 Mg/3 Ml) 3 ml NEB Q4HRRT [facility] Last Admin: 08/13/20 09:15 Dose: 3 ml Documented by: Aspirin (Halfprin) 81 mg PO DAILY [facility] Last Admin: 08/13/20 08:56 Dose: 81 mg Documented by: Atorvastatin Calcium (Lipitor) 40 mg PO BEDTIME [facility] Last Admin: 08/12/20 20:24 Dose: 40 mg Documented by: Azithromycin (Zithromax) 500 mg PO Q24H [facility] Last Admin: 08/12/20 14:22 Dose: 500 mg Documented by: Benzocaine/Menthol (Cepacol Sore Throat) 1 lozenge MUCMEM Q2H PRN PRN Reason: cough,sore throat Benzonatate (Tessalon Perles) 100 mg PO TID PRN PRN Reason: Cough Last Admin: 08/11/20 06:11 Dose: 100 mg Documented by: Clopidogrel Bisulfate (Plavix) 75 mg PO DAILY [facility] Last Admin: 08/13/20 08:56 Dose: 75 mg Documented by: Dexamethasone (Dexamethasone) 6 mg PO DAILY [facility] Last Admin: 08/13/20 08:56 Dose: 6 mg Documented by: Docusate Sodium (Colace) 100 mg PO BID PRN PRN Reason: Constipation Enoxaparin Sodium (Lovenox) 40 mg SUBCUT Q24H [facility] Last Admin: 08/12/20 14:22 Dose: 40 mg Documented by: Fluticasone Propionate (Flonase) 1 gm NASBOTH BID [facility] Last Admin: 08/13/20 08:59 Dose: 1 spray Documented by: Guaifenesin (Mucinex) 600 mg PO BID [facility] Last Admin: 08/13/20 08:56 Dose: 600 mg Documented by: Lisinopril/HCTZ (Lisinopril-Hctz 10-12.5 Mg) 0.5 tab PO DAILY [facility] Last Admin: 08/13/20 08:55 Dose: 0.5 tab Documented by: Remdesivir 100 mg/ Sodium (Chloride) 100 mls @ 100 mls/hr IV Q24H [facility] Stop: 08/13/20 15:59 Last Admin: 08/12/20 14:23 Dose: 100 mls/hr Documented by: Levothyroxine Sodium (Synthroid) 100 mcg PO DAILY@0700 [facility] Last Admin: 08/13/20 06:49 Dose: 100 mcg Documented by: Loratadine (Claritin) 10 mg PO DAILY [facility] Last Admin: 08/13/20 08:56 Dose: 10 mg Documented by: Ondansetron HCl (Zofran) 4 mg IVPUSH Q4H PRN PRN Reason: Nausea Pantoprazole Sodium (Protonix) 40 mg PO ACBREAKFAST [facility] Last Admin: 08/13/20 06:49 Dose: 40 mg Documented by: Bisoprolol 5 Mg (Tablet) 0.5 each PO DAILY [facility] Last Admin: 08/13/20 08:57 Dose: 0.5 each Documented by: Fluticasone/Salmeterol (Advair Diskus 250-50) 1 puff INH BID [facility] Last Admin: 08/13/20 08:59 Dose: 1 puff Documented by: Sodium Chloride (Saline Flush) 2.5 ml FLUSH ASDIRECTED PRN PRN Reason: Keep Vein Open Sodium Chloride ([place] Saline Nasal Gel) 0 gm DEWAYNE Q2H PRN PRN Reason: dry nose Discontinued Medications Albuterol/Ipratropium (Duoneb 3.0-0.5 Mg/3 Ml) 3 ml NEB ONETIME ONE Stop: 08/09/20 09:35 Last Admin: 08/09/20 09:41 Dose: 3 ml Documented by: Atorvastatin Calcium (Lipitor) 40 mg PO DAILY [facility] Dexamethasone (Dexamethasone) 6 mg PO DAILY [facility] Last Admin: 08/10/20 08:54 Dose: 6 mg Documented by: Fluticasone Propionate (Flonase) 1 gm NASBOTH BID PRN PRN Reason: Allergies Remdesivir 200 mg/ Sodium (Chloride) 250 mls @ 250 mls/hr IV ONETIME ONE Stop: 08/09/20 13:24 Last Admin: 08/09/20 15:06 Dose: Not Given Documented by: Remdesivir 200 mg/ Sodium (Chloride) 250 mls @ 250 mls/hr IV ONETIME [facility] Stop: 08/09/20 16:00 Last Admin: 08/09/20 15:06 Dose: 250 mls/hr Documented by: Methylprednisolone Sodium Succinate (Solu-Medrol) 125 mg IVPUSH ONETIME ONE Stop: 08/09/20 09:35 Last Admin: 08/09/20 09:41 Dose: 125 mg Documented by: Methylprednisolone Sodium Succinate (Solu-Medrol) 80 mg IVPUSH Q8H [facility] Last Admin: 08/11/20 10:15 Dose: 80 mg Documented by: Sodium Chloride (Saline Flush) 10 ml FLUSH ASDIRECTED PRN PRN Reason: Keep Vein Open Last Admin: 08/09/20 09:41 Dose: 10 ml Documented by: Sodium Chloride (Saline Flush) 2.5 ml FLUSH ASDIRECTED PRN PRN Reason: Keep Vein Open Last Admin: 08/09/20 09:41 Dose: 2.5 ml Documented by: - Exam Quality Assessment: Supplemental Oxygen (With activity) General: Alert, Oriented, Cooperative, No Acute Distress Lungs: Decreased Breath Sounds (Bibasilar). No: Wheezing Cardiovascular: Regular Rate, Regular Rhythm GI/Abdominal Exam: Normal Bowel Sounds, Soft, Non-Tender, No Distention Extremities: Normal Inspection, Normal Range of Motion, Non-Tender, No Pedal Edema Wound/Incisions: Healing Well Neurological: No New Focal Deficit Psy/Mental Status: Alert, Normal Affect, Normal Mood Sepsis Event Note - Evaluation Sepsis Screening Result: No Definite Risk - Focused Exam Vital Signs: Vital Signs Temp Pulse Resp BP Pulse Ox 08/13/20 08:00 97.2 F 77 18 133/69 94 L 08/13/20 04:11 96.6 F L 69 18 119/58 L 92 L 08/12/20 23:57 97.3 F 68 18 133/66 93 L - Problem List & Annotations (1) Acute respiratory failure with hypoxia SNOMED Code(s): 75682230, 585989688 Code(s): J96.01 - ACUTE RESPIRATORY FAILURE WITH HYPOXIA Status: Acute Current Visit: Yes (2) COPD (chronic obstructive pulmonary disease) SNOMED Code(s): 13407315 Code(s): J44.9 - CHRONIC OBSTRUCTIVE PULMONARY DISEASE, UNSPECIFIED Status: Acute Current Visit: No Qualifiers: COPD type: COPD with acute exacerbation Qualified Code(s): J44.1 - Chronic obstructive pulmonary disease with (acute) exacerbation (3) COVID-19 SNOMED Code(s): 302429684 Code(s): U07.1 - COVID-19 Status: Acute Current Visit: Yes (4) Acute bronchitis SNOMED Code(s): 22356682 Code(s): J20.9 - ACUTE BRONCHITIS, UNSPECIFIED Status: Acute Current Visit: Yes (5) CAD (coronary artery disease) SNOMED Code(s): 18819657 Code(s): I25.10 - ATHSCL HEART DISEASE OF [place] CORONARY ARTERY W/O ANG PCTRS Status: Chronic Current Visit: Yes (6) STEMI (ST elevation myocardial infarction) SNOMED Code(s): 30327619 Code(s): I21.3 - ST ELEVATION (STEMI) MYOCARDIAL INFARCTION OF [place] SITE Status: Chronic Current Visit: No Qualifiers: Involved coronary artery: unspecified coronary artery Qualified Code(s): I21.3 - ST elevation (STEMI) myocardial infarction of unspecified site - Problem List Review Problem List Initiated/Reviewed/Updated: Yes - My Orders Last 24 Hours: My Active Orders 08/12/20 09:30 guaiFENesin [Mucinex] 600 mg PO BID 08/13/20 07:56 Communication Order [RC] STAT 08/13/20 09:30 Aloe Vera/Sodium Chloride [[place] Saline Nasal Gel] See Dose Instructions DEWAYNE Q2H PRN 08/14/20 05:11 CBC WITH AUTO DIFF [HEME] AM COMPREHENSIVE METABOLIC PN,CMP [CHEM] AM MAGNESIUM [CHEM] AM - Plan Plan:: This 74-year-old female admitted with acute hypoxic respiratory failure, COVID- 19, bronchitis/COPD exacerbation 1. COVID-19/acute hypoxic respiratory failure -Remdesivir 100 mg IV daily x4 days, today is last day - Dexamethasone 6 mg in the morning -Oxygen to keep sats greater than 88% -Has been needing oxygen with exertion -Encourage I-S use -DuoNebs as needed 2. Acute bronchitis/COPD exacerbation -DuoNebs scheduled -Continue dexamethasone, will need small taper of steroids going home. -Continue Advair -Azithromycin 500 mg p.o. daily x5 days 3. CAD -Continue aspirin and statin -continue bisoprolol -Monitor on telemetry for palpitations, no arrhythmias noted on telemetry harini rnight -Echo EF within normal range no significant abnormalities noted. VTE prophylaxis: Lovenox CODE STATUS: DNR/DNI Dispo: Possible discharge in 1 to 2 days did discuss at length the possibility of home oxygen on discharge. She verbalized understanding
[2020-08-13] MEDS: Enoxaparin 40 MG/0.4 ML Syringe SUBCUT SCH (14:48)
[2020-08-13] MEDS: Azithromycin 250 MG Tab PO SCH (14:49)
[2020-08-13] MEDS: REMDESIVIR 100 MG in Sodium Chloride 0.9% 100 ML IV SCH (15:40)
[2020-08-13] MEDS: atorvaSTATin 40 MG Tab PO SCH (20:27)
[2020-08-14] MEDS: Albuterol/Ipratropium 3.0-0.5 MG/3 ML Neb Soln NEB SCH ×3 (02:49→10:28)
[2020-08-14] MEDS: Pantoprazole 40 MG Tab.CR PO SCH (06:30)
[2020-08-14] MEDS: Levothyroxine 100 MCG Tab PO SCH (06:30)
[2020-08-14 06:43] LABS: CARBON DIOXIDE,CO2 26.9 mmol/L (21.0-32.0); POTASSIUM,K 4.5 mmol/L (3.5-5.1)
--- NOTE | 2020-08-14 08:35 | PCM.DCSUM1 ---
<Sofia Rinaldi - Last Filed: 08/14/20 10:28> Discharge Summary - Hospital Course Free Text/Narrative:: Patient is a 74-year-old female with significant past medical history of ST elevation [place] in December 2019, CAD, COPD/asthma presenting to the hospital with 2 weeks of shortness of breath. Patient initially believed her shortness of breath was secondary to a new medication for her heart; bisoprolol; hence the delay in presenting herself to the ED. Patient otherwise denied any fevers, chills, body aches but does not complain of sinus congestion. Patient also endorsed initially with intermittent palpitations accompanied with shortness of breath. Patient was Covid positive on arrival and was satting at 85% on room air which subsequently resolved with application of 2 L nasal cannula with saturation of 93%.. Hospital course: Secondary to COVID-19 infection possible COPD exacerbation patient was started on remdesivir 200 mg with completion after 4 days. Dexamethasone 6 mg daily and was discharged for additional 5 days to complete 10-day course. And was continued on duo nebs. Secondary to COPD history patient also completed a 5-day course of azithromycin. Echocardiogram was ordered secondary to significant history of STEMI in December 2019 with ejection fraction of 65 to 70% and mild tricuspid valve regurgitation. Was recommended to continue her Bisoprolol. Patient otherwise throughout her time here improved without incident. EMILY had improved from her initial onset of 1.3-1.1 on day of discharge. Day of discharge patient required no supplemental oxygen while at rest however required occasionally 1 L with exertion with oxygen; saturation maintained greater than 90%. Patient requested discharge. Patient discharged in stable condition. Patient discharged with supplemental O2 with exertion of 1 L, 6 mg dexamethasone daily x5 additional days and advised to follow primary care when appointment is available. Work note was also provided for patient to complete entire quarantine recommendation. Patient otherwise in stable condition. Disposition: Home Follow-up: PCP - Discharge Data Discharge Date: 08/14/20 Discharge Disposition: Home, Self-Care 01 Condition: Stable - Referral to Home Health Primary Care Physician: Apolinar Johnson MD - Discharge Plan *PRESCRIPTION DRUG MONITORING PROGRAM REVIEWED*: Not Applicable *COPY OF PRESCRIPTION DRUG MONITORING REPORT IN PATIENT MARYANNE: Not Applicable Prescriptions/Med Rec: Aloe Vera/Sodium Chloride [[place] Saline Nasal Gel] 1 applic DEWAYNE Q2H PRN 7 Days #1 tube PRN Reason: dry nose dexAMETHasone [Decadron] 6 mg PO DAILY 5 Days #5 tablet Albuterol/Ipratropium [DuoNeb 3.0-0.5 MG/3 ML] 3 ml NEB Q4HRRT PRN #1 box PRN Reason: wheezing/shortnessofbreath Home Medications: Home Meds Fluticasone Propionate [Flonase Allergy Relief] 1 spray NASBOTH BID PRN 07/31/18 [History] Fluticasone/Salmeterol [Advair 250-50] 1 inh IH BID 02/24/20 [History] Levothyroxine Sodium [Levoxyl] 100 mcg PO DAILY 02/24/20 [History] atorvaSTATin [Lipitor] 40 mg PO DAILY 02/24/20 [History] Albuterol [Ventolin HFA] 1 puff INH Q6H PRN 03/22/20 [History] Aspirin [Aspirin EC] 81 mg PO DAILY 08/09/20 [History] Clopidogrel [Plavix] 75 mg PO DAILY 08/09/20 [History] Lisinopril/Hydrochlorothiazide [Lisinopril-Hctz 10-12.5 mg Tab] 0.5 tab PO DAILY 08/09/20 [History] bisoproloL fumarate [Bisoprolol Fumarate] 2.5 mg PO DAILY 08/09/20 [History] Albuterol/Ipratropium [DuoNeb 3.0-0.5 MG/3 ML] 3 ml NEB Q4HRRT PRN #1 box 08/11/20 [Rx] Aloe Vera/Sodium Chloride [[place] Saline Nasal Gel] 1 applic DEWAYNE Q2H PRN 7 Days #1 tube 08/14/20 [Rx] Loratadine [Claritin] 10 mg PO DAILY tablet 08/14/20 [Rx] dexAMETHasone [Decadron] 6 mg PO DAILY 5 Days #5 tablet 08/14/20 [Rx] Oxygen Therapy Mode: Nasal Cannula Patient Handouts: Albuterol inhalation powder, COVID-19: What Your Test Results Mean - CDC, COVID-19 Frequently Asked Questions, COVID-19, SARS-CoV-2 Virus (COVID-19) Vaccine Suspension for Injection (Moderna COVID-19 Vaccine), Albuterol inhalation aerosol, COVID-19: How to Protect Yourself and Others - [facility] Referrals: Apolinar Johnson MD [Primary Care Provider] - 08/24/20 9:00 am - Discharge Summary/Plan Comment DC Time >30 min.: No - Patient Data Vitals - Most Recent: Last Vital Signs Temp 97.1 F 08/14/20 03:04 Pulse 70 08/14/20 03:04 Resp 18 08/14/20 03:04 BP 130/69 08/14/20 03:04 Pulse Ox 91 L 08/14/20 03:05 Weight - Most Recent: 92.669 kg I&O - Last 24 hours: Intake & Output 08/13/20 08/14/20 08/14/20 22:59 06:59 14:59 Intake Total 900 1536 Output Total 500 1400 Balance 400 136 Lab Results - Last 24 hrs: Laboratory Results - last 24 hr 08/14/20 08/14/20 Range/Units 05:55 05:55 WBC 6.99 (4.0-11.0) K/uL RBC 4.74 (4.30-5.90) M/uL Hgb 13.2 (12.0-16.0) g/dL Hct 41.3 (36.0-46.0) % MCV 87.1 (80.0-98.0) fL MCH 27.8 (27.0-32.0) pg MCHC 32.0 (31.0-37.0) g/dL RDW Std Deviation 46.5 (28.0-62.0) fl RDW Coeff of Elena 15 (11.0-15.0) % Plt Count 184 (150-400) K/uL MPV 10.40 (7.40-12.00) fL Neut % (Auto) 82.1 H (48.0-80.0) % Lymph % (Auto) 8.7 L (16.0-40.0) % [place] % (Auto) 9.0 (0.0-15.0) % Eos % (Auto) 0.1 (0.0-7.0) % Baso % (Auto) 0.1 (0.0-1.5) % Neut # (Auto) 5.7 (1.4-5.7) K/uL Lymph # (Auto) 0.6 (0.6-2.4) K/uL [place] # (Auto) 0.6 (0.0-0.8) K/uL Eos # (Auto) 0.0 (0.0-0.7) K/uL Baso # (Auto) 0.0 (0.0-0.1) K/uL Nucleated RBC % 0.0 /100WBC Nucleated RBCs # 0 K/uL Sodium 139 (136-145) mmol/L Potassium 4.5 (3.5-5.1) mmol/L Chloride 102 (98-107) mmol/L Carbon Dioxide 26.9 (21.0-32.0) mmol/L BUN 35 H (7.0-18.0) mg/dL Creatinine 1.1 H (0.6-1.0) mg/dL Est Cr Clr Drug Dosing 38.16 mL/min Estimated GFR (MDRD) 48.4 ml/min Glucose 137 H (74-106) mg/dL Calcium 8.8 (8.5-10.1) mg/dL Magnesium 2.4 (1.8-2.4) mg/dL Total Bilirubin 0.3 (0.2-1.0) mg/dL AST 11 L (15-37) IU/L ALT 26 (14-63) IU/L Alkaline Phosphatase 86 (46-116) U/L Total Protein 6.5 (6.4-8.2) g/dL Albumin 3.2 L (3.4-5.0) g/dL Globulin 3.3 (2.6-4.0) g/dL Albumin/Globulin Ratio 1.0 (0.9-1.6) Med Orders - Current: Current Medications Albuterol (Ventolin Hfa) 0 gm INH Q6H PRN PRN Reason: Shortness of Breath Albuterol/Ipratropium (Duoneb 3.0-0.5 Mg/3 Ml) 3 ml NEB Q4HRRT [facility] Last Admin: 08/14/20 06:25 Dose: 3 ml Documented by: Aspirin (Halfprin) 81 mg PO DAILY [facility] Last Admin: 08/13/20 08:56 Dose: 81 mg Documented by: Atorvastatin Calcium (Lipitor) 40 mg PO BEDTIME [facility] Last Admin: 08/13/20 20:27 Dose: 40 mg Documented by: Azithromycin (Zithromax) 500 mg PO Q24H [facility] Last Admin: 08/13/20 14:49 Dose: 500 mg Documented by: Benzocaine/Menthol (Cepacol Sore Throat) 1 lozenge MUCMEM Q2H PRN PRN Reason: cough,sore throat Benzonatate (Tessalon Perles) 100 mg PO TID PRN PRN Reason: Cough Last Admin: 08/11/20 06:11 Dose: 100 mg Documented by: Clopidogrel Bisulfate (Plavix) 75 mg PO DAILY [facility] Last Admin: 08/13/20 08:56 Dose: 75 mg Documented by: Dexamethasone (Dexamethasone) 6 mg PO DAILY [facility] Last Admin: 08/13/20 08:56 Dose: 6 mg Documented by: Docusate Sodium (Colace) 100 mg PO BID PRN PRN Reason: Constipation Enoxaparin Sodium (Lovenox) 40 mg SUBCUT Q24H [facility] Last Admin: 08/13/20 14:48 Dose: 40 mg Documented by: Fluticasone Propionate (Flonase) 1 gm NASBOTH BID [facility] Last Admin: 08/13/20 21:04 Dose: 1 spray Documented by: Guaifenesin (Mucinex) 600 mg PO BID [facility] Last Admin: 08/13/20 20:27 Dose: 600 mg Documented by: Lisinopril/HCTZ (Lisinopril-Hctz 10-12.5 Mg) 0.5 tab PO DAILY [facility] Last Admin: 08/13/20 08:55 Dose: 0.5 tab Documented by: Levothyroxine Sodium (Synthroid) 100 mcg PO DAILY@0700 [facility] Last Admin: 08/14/20 06:30 Dose: 100 mcg Documented by: Loratadine (Claritin) 10 mg PO DAILY [facility] Last Admin: 08/13/20 08:56 Dose: 10 mg Documented by: Ondansetron HCl (Zofran) 4 mg IVPUSH Q4H PRN PRN Reason: Nausea Pantoprazole Sodium (Protonix) 40 mg PO ACBREAKFAST [facility] Last Admin: 08/14/20 06:30 Dose: 40 mg Documented by: Bisoprolol 5 Mg (Tablet) 0.5 each PO DAILY [facility] Last Admin: 08/13/20 08:57 Dose: 0.5 each Documented by: Fluticasone/Salmeterol (Advair Diskus 250-50) 1 puff INH BID [facility] Last Admin: 08/13/20 21:04 Dose: 1 puff Documented by: Sodium Chloride (Saline Flush) 2.5 ml FLUSH ASDIRECTED PRN PRN Reason: Keep Vein Open Sodium Chloride ([place] Saline Nasal Gel) 0 gm DEWAYNE Q2H PRN PRN Reason: dry nose Last Admin: 08/13/20 11:35 Dose: 1 applic Documented by: Discontinued Medications Albuterol/Ipratropium (Duoneb 3.0-0.5 Mg/3 Ml) 3 ml NEB ONETIME ONE Stop: 08/09/20 09:35 Last Admin: 08/09/20 09:41 Dose: 3 ml Documented by: Atorvastatin Calcium (Lipitor) 40 mg PO DAILY [facility] Dexamethasone (Dexamethasone) 6 mg PO DAILY [facility] Last Admin: 08/10/20 08:54 Dose: 6 mg Documented by: Fluticasone Propionate (Flonase) 1 gm NASBOTH BID PRN PRN Reason: Allergies Remdesivir 200 mg/ Sodium (Chloride) 250 mls @ 250 mls/hr IV ONETIME ONE Stop: 08/09/20 13:24 Last Admin: 08/09/20 15:06 Dose: Not Given Documented by: Remdesivir 200 mg/ Sodium (Chloride) 250 mls @ 250 mls/hr IV ONETIME [facility] Stop: 08/09/20 16:00 Last Admin: 08/09/20 15:06 Dose: 250 mls/hr Documented by: Remdesivir 100 mg/ Sodium (Chloride) 100 mls @ 100 mls/hr IV Q24H [facility] Stop: 08/13/20 15:59 Last Admin: 08/13/20 15:40 Dose: 100 mls/hr Documented by: Methylprednisolone Sodium Succinate (Solu-Medrol) 125 mg IVPUSH ONETIME ONE Stop: 08/09/20 09:35 Last Admin: 08/09/20 09:41 Dose: 125 mg Documented by: Methylprednisolone Sodium Succinate (Solu-Medrol) 80 mg IVPUSH Q8H [facility] Last Admin: 08/11/20 10:15 Dose: 80 mg Documented by: Sodium Chloride (Saline Flush) 10 ml FLUSH ASDIRECTED PRN PRN Reason: Keep Vein Open Last Admin: 08/09/20 09:41 Dose: 10 ml Documented by: Sodium Chloride (Saline Flush) 2.5 ml FLUSH ASDIRECTED PRN PRN Reason: Keep Vein Open Last Admin: 08/09/20 09:41 Dose: 2.5 ml Documented by: <AbbeAureliano Radha - Last Filed: 08/14/20 19:13> Discharge Summary - Referral to [facility] Primary Care Physician: Apolinar Johnson MD - Patient Data Vitals - Most Recent: Last Vital Signs Temp 36.3 C 08/14/20 09:13 Pulse 86 08/14/20 09:13 Resp 18 08/14/20 03:04 BP 123/82 08/14/20 09:13 Pulse Ox 93 L 08/14/20 09:13 I&O - Last 24 hours: Intake & Output 08/14/20 08/14/20 08/14/20 06:59 14:59 22:59 Intake Total 1536 Output Total 1400 Balance 136 Lab Results - Last 24 hrs: Laboratory Results - last 24 hr 08/14/20 08/14/20 Range/Units 05:55 05:55 WBC 6.99 (4.0-11.0) K/uL RBC 4.74 (4.30-5.90) M/uL Hgb 13.2 (12.0-16.0) g/dL Hct 41.3 (36.0-46.0) % MCV 87.1 (80.0-98.0) fL MCH 27.8 (27.0-32.0) pg MCHC 32.0 (31.0-37.0) g/dL RDW Std Deviation 46.5 (28.0-62.0) fl RDW Coeff of Elena 15 (11.0-15.0) % Plt Count 184 (150-400) K/uL MPV 10.40 (7.40-12.00) fL Neut % (Auto) 82.1 H (48.0-80.0) % Lymph % (Auto) 8.7 L (16.0-40.0) % [place] % (Auto) 9.0 (0.0-15.0) % Eos % (Auto) 0.1 (0.0-7.0) % Baso % (Auto) 0.1 (0.0-1.5) % Neut # (Auto) 5.7 (1.4-5.7) K/uL Lymph # (Auto) 0.6 (0.6-2.4) K/uL [place] # (Auto) 0.6 (0.0-0.8) K/uL Eos # (Auto) 0.0 (0.0-0.7) K/uL Baso # (Auto) 0.0 (0.0-0.1) K/uL Nucleated RBC % 0.0 /100WBC Nucleated RBCs # 0 K/uL Sodium 139 (136-145) mmol/L Potassium 4.5 (3.5-5.1) mmol/L Chloride 102 (98-107) mmol/L Carbon Dioxide 26.9 (21.0-32.0) mmol/L BUN 35 H (7.0-18.0) mg/dL Creatinine 1.1 H (0.6-1.0) mg/dL Est Cr Clr Drug Dosing 38.16 mL/min Estimated GFR (MDRD) 48.4 ml/min Glucose 137 H (74-106) mg/dL Calcium 8.8 (8.5-10.1) mg/dL Magnesium 2.4 (1.8-2.4) mg/dL Total Bilirubin 0.3 (0.2-1.0) mg/dL AST 11 L (15-37) IU/L ALT 26 (14-63) IU/L Alkaline Phosphatase 86 (46-116) U/L Total Protein 6.5 (6.4-8.2) g/dL Albumin 3.2 L (3.4-5.0) g/dL Globulin 3.3 (2.6-4.0) g/dL Albumin/Globulin Ratio 1.0 (0.9-1.6) Med Orders - Current: Current Medications Discontinued Medications Albuterol (Ventolin Hfa) 0 gm INH Q6H PRN PRN Reason: Shortness of Breath Albuterol/Ipratropium (Duoneb 3.0-0.5 Mg/3 Ml) 3 ml NEB ONETIME ONE Stop: 08/09/20 09:35 Last Admin: 08/09/20 09:41 Dose: 3 ml Documented by: Albuterol/Ipratropium (Duoneb 3.0-0.5 Mg/3 Ml) 3 ml NEB Q4HRRT [facility] Last Admin: 08/14/20 10:28 Dose: 3 ml Documented by: Aspirin (Halfprin) 81 mg PO DAILY [facility] Last Admin: 08/14/20 09:18 Dose: 81 mg Documented by: Atorvastatin Calcium (Lipitor) 40 mg PO DAILY [facility] Atorvastatin Calcium (Lipitor) 40 mg PO BEDTIME [facility] Last Admin: 08/13/20 20:27 Dose: 40 mg Documented by: Azithromycin (Zithromax) 500 mg PO Q24H [facility] Last Admin: 08/13/20 14:49 Dose: 500 mg Documented by: Benzocaine/Menthol (Cepacol Sore Throat) 1 lozenge MUCMEM Q2H PRN PRN Reason: cough,sore throat Benzonatate (Tessalon Perles) 100 mg PO TID PRN PRN Reason: Cough Last Admin: 08/11/20 06:11 Dose: 100 mg Documented by: Clopidogrel Bisulfate (Plavix) 75 mg PO DAILY [facility] Last Admin: 08/14/20 09:17 Dose: 75 mg Documented by: Dexamethasone (Dexamethasone) 6 mg PO DAILY [facility] Last Admin: 08/10/20 08:54 Dose: 6 mg Documented by: Dexamethasone (Dexamethasone) 6 mg PO DAILY [facility] Last Admin: 08/14/20 09:18 Dose: 6 mg Documented by: Docusate Sodium (Colace) 100 mg PO BID PRN PRN Reason: Constipation Enoxaparin Sodium (Lovenox) 40 mg SUBCUT Q24H [facility] Last Admin: 08/13/20 14:48 Dose: 40 mg Documented by: Fluticasone Propionate (Flonase) 1 gm NASBOTH BID PRN PRN Reason: Allergies Fluticasone Propionate (Flonase) 1 gm NASBOTH BID [facility] Last Admin: 08/14/20 09:16 Dose: 1 spray Documented by: Guaifenesin (Mucinex) 600 mg PO BID [facility] Last Admin: 08/14/20 09:17 Dose: 600 mg Documented by: Lisinopril/HCTZ (Lisinopril-Hctz 10-12.5 Mg) 0.5 tab PO DAILY [facility] Last Admin: 08/14/20 09:19 Dose: 0.5 tab Documented by: Remdesivir 200 mg/ Sodium (Chloride) 250 mls @ 250 mls/hr IV ONETIME ONE Stop: 08/09/20 13:24 Last Admin: 08/09/20 15:06 Dose: Not Given Documented by: Remdesivir 200 mg/ Sodium (Chloride) 250 mls @ 250 mls/hr IV ONETIME [facility] Stop: 08/09/20 16:00 Last Admin: 08/09/20 15:06 Dose: 250 mls/hr Documented by: Remdesivir 100 mg/ Sodium (Chloride) 100 mls @ 100 mls/hr IV Q24H [facility] Stop: 08/13/20 15:59 Last Admin: 08/13/20 15:40 Dose: 100 mls/hr Documented by: Levothyroxine Sodium (Synthroid) 100 mcg PO DAILY@0700 [facility] Last Admin: 08/14/20 06:30 Dose: 100 mcg Documented by: Loratadine (Claritin) 10 mg PO DAILY [facility] Last Admin: 08/14/20 09:17 Dose: 10 mg Documented by: Methylprednisolone Sodium Succinate (Solu-Medrol) 125 mg IVPUSH ONETIME ONE Stop: 08/09/20 09:35 Last Admin: 08/09/20 09:41 Dose: 125 mg Documented by: Methylprednisolone Sodium Succinate (Solu-Medrol) 80 mg IVPUSH Q8H [facility] Last Admin: 08/11/20 10:15 Dose: 80 mg Documented by: Ondansetron HCl (Zofran) 4 mg IVPUSH Q4H PRN PRN Reason: Nausea Pantoprazole Sodium (Protonix) 40 mg PO ACBREAKFAST [facility] Last Admin: 08/14/20 06:30 Dose: 40 mg Documented by: Bisoprolol 5 Mg (Tablet) 0.5 each PO DAILY [facility] Last Admin: 08/14/20 09:14 Dose: 0.5 each Documented by: Fluticasone/Salmeterol (Advair Diskus 250-50) 1 puff INH BID [facility] Last Admin: 08/14/20 09:16 Dose: 1 puff Documented by: Sodium Chloride (Saline Flush) 10 ml FLUSH ASDIRECTED PRN PRN Reason: Keep Vein Open Last Admin: 08/09/20 09:41 Dose: 10 ml Documented by: Sodium Chloride (Saline Flush) 2.5 ml FLUSH ASDIRECTED PRN PRN Reason: Keep Vein Open Last Admin: 08/09/20 09:41 Dose: 2.5 ml Documented by: Sodium Chloride (Saline Flush) 2.5 ml FLUSH ASDIRECTED PRN PRN Reason: Keep Vein Open Sodium Chloride ([place] Saline Nasal Gel) 0 gm DEWAYNE Q2H PRN PRN Reason: dry nose Last Admin: 08/13/20 11:35 Dose: 1 applic Documented by: - Free Text/Narrative Note: I have seen and examined the patient. I have discussed findings and treatment plan with the resident. I agree with the assessment and plan as outlined in the following note.
[2020-08-14 09:14] VITALS: BP 123/82; PULSE 86
[2020-08-14] MEDS: BISOPROLOL 5 MG TABLET PO SCH (09:14)
[2020-08-14] MEDS: Fluticasone/Salmeterol 250-50 MCG Inhalation Powder 14/Diskus INH SCH (09:16)
[2020-08-14] MEDS: Fluticasone Propionate Nasal Spray 16 GM Bottle NASBOTH SCH (09:16)
[2020-08-14] MEDS: guaiFENesin 600 MG Tab.ER PO SCH (09:17)
[2020-08-14] MEDS: Clopidogrel 75 MG Tab PO SCH (09:17)
[2020-08-14] MEDS: Loratadine 10 MG Tab PO SCH (09:17)
[2020-08-14] MEDS: Aspirin 81 MG Tab.EC PO SCH (09:18)
[2020-08-14] MEDS: Dexamethasone 4 MG Tab PO SCH (09:18)
[2020-08-14] MEDS: Lisinopril/Hydrochlorothiazide 10-12.5 MG Tab PO SCH (09:19)
== END 2020-08-14 12:10 | disposition home or self-care (01) | DRG 177 ==
LOC: MW.ED 09:14 → MW.MS 11:33
PROVIDERS: ADMIT Internal Medicine; ATTEND Internal Medicine
PROC: XW033E5 Introduction of Remdesivir Anti-infective into Peripheral Vein, Percutaneous Approach, New Technology Group 5 (ICD-10-PCS; principal; 2020-08-09)
DX: U07.1 COVID-19 (principal); J96.01 Acute respiratory failure with hypoxia; J44.1 Chronic obstructive pulmonary disease with (acute) exacerbation; N17.9 Acute kidney failure, unspecified; J44.0 Chronic obstructive pulmonary disease with (acute) lower respiratory infection; Z66 Do not resuscitate; H54.7 Unspecified visual loss; J20.9 Acute bronchitis, unspecified; I25.10 Atherosclerotic heart disease of native coronary artery without angina pectoris; J30.9 Allergic rhinitis, unspecified; E78.00 Pure hypercholesterolemia, unspecified; K44.9 Diaphragmatic hernia without obstruction or gangrene; I25.2 Old myocardial infarction; Z95.5 Presence of coronary angioplasty implant and graft; J44.9 Chronic obstructive pulmonary disease, unspecified; G89.29 Other chronic pain; M54.9 Dorsalgia, unspecified; M19.90 Unspecified osteoarthritis, unspecified site; Z98.49 Cataract extraction status, unspecified eye; Z90.49 Acquired absence of other specified parts of digestive tract; Z98.51 Tubal ligation status; E03.9 Hypothyroidism, unspecified; Z85.828 Personal history of other malignant neoplasm of skin; Z88.1 Allergy status to other antibiotic agents; Z88.6 Allergy status to analgesic agent; Z88.2 Allergy status to sulfonamides; Z88.5 Allergy status to narcotic agent; Z79.02 Long term (current) use of antithrombotics/antiplatelets; Z79.82 Long term (current) use of aspirin; Z79.890 Hormone replacement therapy; Z79.899 Other long term (current) drug therapy
CPT/HCPCS: 0240U; 36415; 71045; 80053; 81003; 83605; 83735; 83880; 84484; 85025; 86140; 93005; 93306; 94640; 96374; 97161; 99285; 93010; A9270-GY; J1650; J2920; J2930; J7050; J7620-GY; J8540

== ENCOUNTER 2022-10-18 16:18 | Emergency (ER) | payer MEDICARE, BC ==
[2022-10-18] MEDS ORDERED: Sodium Chloride 0.9% 2.5 ML Syringe FLUSH PRN (16:31)
[2022-10-18] MEDS ORDERED: Sodium Chloride 0.9% 10 ML Syringe FLUSH PRN (16:31)
[2022-10-18 17:19] LABS: CORONAVIRUS COVID-19 NAA NEGATIVE (NEGATIVE); INFLUENZA A NAA NEGATIVE (NEGATIVE); INFLUENZA B NAA NEGATIVE (NEGATIVE); RESPIRATORY SYNCYTIAL VIR NAA NEGATIVE (NEGATIVE)
[2022-10-18 17:26] LABS: BLOOD UREA NITROGEN,BUN 26 mg/dL (7.0-18.0); CARBON DIOXIDE,CO2 24.3 mmol/L (21.0-32.0); CHLORIDE,CL 101 mmol/L (98-107); ESTIMATED GFR 35 mL/min (>60); GLUCOSE RANDOM 235 mg/dL (74-106); POTASSIUM,K 4.5 mmol/L (3.5-5.1); SODIUM,NA 137 mmol/L (136-145)
[2022-10-18] MEDS ORDERED: Albuterol/Ipratropium 3.0-0.5 MG/3 ML Neb Soln NEB ONE (18:01)
[2022-10-18] MEDS ORDERED: methylPREDNISolone Sodium Succinate 40 MG/1 ML SDV IVPUSH ONE (18:02)
[2022-10-18] MEDS ORDERED: Sodium Chloride 0.9% 500 ML IV SCH (18:30)
[2022-10-18 19:27] VITALS: BP 165/84; PULSE 70
== END 2022-10-18 19:26 | disposition home or self-care (01) ==
LOC: MW.ED 16:18
DX: J44.1 Chronic obstructive pulmonary disease with (acute) exacerbation (principal); J06.9 Acute upper respiratory infection, unspecified; E78.00 Pure hypercholesterolemia, unspecified; I25.2 Old myocardial infarction; E03.9 Hypothyroidism, unspecified; Z88.1 Allergy status to other antibiotic agents; Z88.5 Allergy status to narcotic agent; Z79.899 Other long term (current) drug therapy; Z79.84 Long term (current) use of oral hypoglycemic drugs; Z20.822 Contact with and (suspected) exposure to COVID-19
CPT/HCPCS: 0241U; 36415; 71046; 80053; 83880; 84484; 85025; 85610; 93005; 96361; 96374; 99284; J2920; J3490; J7040; J7620-GY

== ENCOUNTER 2023-12-16 09:25 | Emergency (ER) | payer MEDICARE, BC ==
[2023-12-16 10:04] LABS: BASOPHILS ABSOLUTE AUTO 0.05 K/uL (0.00-0.20); BASOPHILS PERCENT AUTO 0.6 % (0.0-1.0); EOSINOPHILS ABSOLUTE AUTO 0.43 K/uL (0.00-0.45); EOSINOPHILS PERCENT AUTO 4.9 % (0.0-6.0); HEMATOCRIT 42.9 % (37.0-47.0); HEMOGLOBIN 14.2 g/dL (12.0-16.0); IMMATURE GRAN ABSOLUTE AUTO 0.04 K/uL (0.00-0.05); IMMATURE GRAN PERCENT AUTO 0.5 % (0.0-0.4); LYMPHOCYTES PERCENT AUTO 15.9 % (24.0-44.0); MEAN CORPUSCULAR HGB CONC 33.1 g/dL (32.0-36.0); MEAN CORPUSCULAR VOLUME 90.5 fL (83.0-99.0); MEAN PLATELET VOLUME 9.7 fL (9.4-12.3); MONOCYTES ABSOLUTE AUTO 0.41 K/uL (0.00-0.80); MONOCYTES PERCENT AUTO 4.6 % (0.0-8.0); NEUTROPHILS PERCENT AUTO 73.5 % (41.0-71.0); PLATELET COUNT,PLT 205 K/uL (150-400); RED BLOOD CELL COUNT 4.74 M/uL (4.10-5.30); WHITE BLOOD CELL COUNT,WBC 8.83 K/uL (3.9-11.3)
[2023-12-16 10:28] LABS: A/G RATIO 0.8 (0.9-1.6); BILIRUBIN TOTAL 0.5 mg/dL (0.2-1.0); CARBON DIOXIDE,CO2 23.9 mmol/L (21.0-32.0); CREATININE 1.7 mg/dL (0.6-1.0); EST CRCL DRUG DOSING (CG) 22.2 mL/min; POTASSIUM,K 4.1 mmol/L (3.5-5.1); PROTEIN TOTAL,TP 6.8 g/dL (6.4-8.2)
[2023-12-16] MEDS: Sodium Chloride 0.9% 1,000 ML IV ONE (11:03)
[2023-12-16 12:45] VITALS: BP 155/62; PULSE 59
== END 2023-12-16 13:19 | disposition home or self-care (01) ==
LOC: MW.ED 09:25
DX: E86.9 Volume depletion, unspecified (principal); J44.9 Chronic obstructive pulmonary disease, unspecified; I25.2 Old myocardial infarction; E11.9 Type 2 diabetes mellitus without complications; E03.9 Hypothyroidism, unspecified; Z88.1 Allergy status to other antibiotic agents; Z88.5 Allergy status to narcotic agent; Z88.2 Allergy status to sulfonamides; Z79.82 Long term (current) use of aspirin; Z79.899 Other long term (current) drug therapy; Z79.84 Long term (current) use of oral hypoglycemic drugs; Z79.890 Hormone replacement therapy; Z95.5 Presence of coronary angioplasty implant and graft; Z90.49 Acquired absence of other specified parts of digestive tract
CPT/HCPCS: 36415; 80053; 84484; 85025; 93005; 96360; 99285; J7030; 93010; 99282

== ENCOUNTER 2024-11-11 10:34 | Inpatient (IN) | payer MEDICARE, BC ==
[2024-11-11] MEDS ORDERED: Albuterol 0.083% 2.5 MG/3 ML Neb Soln NEB PRN (10:37)
[2024-11-11] MEDS ORDERED: Polyethylene Glycol 3350 Powder 17 GM Packet PO PRN (10:37)
[2024-11-11] MEDS ORDERED: Ondansetron 4 MG/2 ML SDV IVPUSH PRN (10:37)
[2024-11-11] MEDS ORDERED: Sodium Chloride 0.9% 2.5 ML Syringe FLUSH PRN (10:37)
[2024-11-11] MEDS ORDERED: Melatonin 3 MG Tab PO PRN (10:37)
[2024-11-11] MEDS ORDERED: Sodium Chloride 0.9% 10 ML Syringe FLUSH PRN (10:37)
[2024-11-11] MEDS ORDERED: Docusate Sodium 100 MG Cap PO PRN (10:37)
[2024-11-11] MEDS ORDERED: Acetaminophen 325 MG Tab PO PRN (10:37)
[2024-11-11] MEDS ORDERED: 50% Dextrose in Water 50 ML Syringe IVPUSH PRN (10:44)
[2024-11-11] MEDS ORDERED: Glucagon,Human Recombinant 1 MG Vial IM PRN (10:44)
[2024-11-11] MEDS: Azithromycin 500 MG in Sodium Chloride 0.9% 250 ML IV SCH (11:28)
[2024-11-11] MEDS: Sodium Chloride 0.9% 1,000 ML IV SCH (11:28)
[2024-11-11] MEDS: Heparin Sodium 5,000 Units/ML Vial SUBCUT SCH (11:30)
[2024-11-11] MEDS: cefTRIAXone 1 GM in Water For Injection, Sterile 10 ML IVPUSH SCH (11:30)
[2024-11-11] MEDS: Insulin Aspart 100 Units/ML 3 ML Pen SUBCUT SCH (11:32)
[2024-11-11 11:55] LABS: CORONAVIRUS COVID-19 NAA NEGATIVE (NEGATIVE); INFLUENZA A NAA POSITIVE (NEGATIVE); INFLUENZA B NAA NEGATIVE (NEGATIVE)
[2024-11-11] MEDS: Oseltamivir 30 MG Cap PO SCH (13:21)
[2024-11-11] MEDS: Albuterol/Ipratropium 3.0-0.5 MG/3 ML Neb Soln NEB SCH (14:47)
[2024-11-11] MEDS ORDERED: traMADol 50 MG Tab PO PRN (16:58)
[2024-11-11] MEDS: Albuterol/Ipratropium 3.0-0.5 MG/3 ML Neb Soln ONE (17:36)
[2024-11-11] MEDS: Fluticasone NASAL Spray 16 GM Bottle NASBOTH SCH (17:41)
[2024-11-11] MEDS: atorvaSTATin 40 MG Tab PO SCH (20:10)
[2024-11-11] MEDS: Formoterol/Mometasone 200-5 MCG 8.8 GM Inhaler INH SCH (20:10)
[2024-11-12 05:03] LABS: BORDETELLA PARAPERT IS1001 Not Detected (Not Detected)
[2024-11-12 05:35] LABS: EOSINOPHILS ABSOLUTE AUTO 0.01 K/uL (0.00-0.45); EOSINOPHILS PERCENT AUTO 0.2 % (0.0-6.0); HEMOGLOBIN 11.3 g/dL (12.0-16.0); IMMATURE GRAN ABSOLUTE AUTO 0.03 K/uL (0.00-0.05); IMMATURE GRAN PERCENT AUTO 0.7 % (0.0-0.4); LYMPHOCYTES ABSOLUTE AUTO 0.57 K/uL (1.00-4.80); LYMPHOCYTES PERCENT AUTO 12.8 % (24.0-44.0); MEAN CORPUSCULAR HEMOGLOBIN 29.4 pg (28.0-32.0); MEAN CORPUSCULAR HGB CONC 33.2 g/dL (32.0-36.0); MEAN CORPUSCULAR VOLUME 88.5 fL (83.0-99.0); MEAN PLATELET VOLUME 9.5 fL (9.4-12.3); MONOCYTES ABSOLUTE AUTO 0.44 K/uL (0.00-0.80); MONOCYTES PERCENT AUTO 9.9 % (0.0-8.0); NEUTROPHILS PERCENT AUTO 76.4 % (41.0-71.0); PLATELET COUNT,PLT 152 K/uL (150-400); RED BLOOD CELL COUNT 3.84 M/uL (4.10-5.30); WHITE BLOOD CELL COUNT,WBC 4.45 K/uL (3.9-11.3)
[2024-11-12 05:58] LABS: A/G RATIO 0.6 (0.9-1.6); ALBUMIN 2.4 g/dL (3.4-5.0); BILIRUBIN TOTAL 0.5 mg/dL (0.2-1.0); CALCIUM 8.1 mg/dL (8.5-10.1); CARBON DIOXIDE,CO2 24.3 mmol/L (21.0-32.0); CREATININE 1.4 mg/dL (0.6-1.0); EST CRCL DRUG DOSING (CG) 28.84 mL/min; MAGNESIUM 1.7 mg/dL (1.8-2.4); PROTEIN TOTAL,TP 6.2 g/dL (6.4-8.2)
[2024-11-12] MEDS: Levothyroxine 88 MCG Tab PO SCH (06:38)
[2024-11-12] MEDS: Magnesium Sulfate 2 GM/50 mL 2 GM in Premix Bag 1 BAG IV ONE (08:15)
[2024-11-12] MEDS ORDERED: Non-Formulary Medication 1 Each (Ubidecarenone [Co Q-10] 200 MG Capsule) PO SCH (09:00)
[2024-11-12] MEDS ORDERED: Fluticasone NASAL Spray 16 GM Bottle NASBOTH SCH (09:00)
[2024-11-12] MEDS: Cholecalciferol (Vitamin D3) 25 MCG Tab PO SCH (09:13)
[2024-11-12] MEDS: Fish Oil/Omega-3 Fatty Acids 1 Gm Cap PO SCH (09:15)
[2024-11-12] MEDS: Aspirin 81 MG Tab.EC PO SCH (09:16)
[2024-11-12] MEDS: Lisinopril 10 MG Tab PO SCH (09:16)
[2024-11-12] MEDS: Multivitamin Tab PO SCH (09:16)
[2024-11-12] MEDS: Ascorbic Acid 500 MG Tab PO SCH (09:20)
[2024-11-13 05:48] LABS: BASOPHILS ABSOLUTE AUTO 0.01 K/uL (0.00-0.20); BASOPHILS PERCENT AUTO 0.3 % (0.0-1.0); EOSINOPHILS ABSOLUTE AUTO 0.04 K/uL (0.00-0.45); EOSINOPHILS PERCENT AUTO 1.1 % (0.0-6.0); HEMATOCRIT 36.8 % (37.0-47.0); HEMOGLOBIN 11.9 g/dL (12.0-16.0); IMMATURE GRAN ABSOLUTE AUTO 0.03 K/uL (0.00-0.05); IMMATURE GRAN PERCENT AUTO 0.8 % (0.0-0.4); LYMPHOCYTES ABSOLUTE AUTO 0.61 K/uL (1.00-4.80); LYMPHOCYTES PERCENT AUTO 16.2 % (24.0-44.0); MEAN CORPUSCULAR HEMOGLOBIN 28.6 pg (28.0-32.0); MEAN CORPUSCULAR HGB CONC 32.3 g/dL (32.0-36.0); MEAN CORPUSCULAR VOLUME 88.5 fL (83.0-99.0); MEAN PLATELET VOLUME 9.3 fL (9.4-12.3); MONOCYTES ABSOLUTE AUTO 0.28 K/uL (0.00-0.80); MONOCYTES PERCENT AUTO 7.4 % (0.0-8.0); NEUTROPHILS ABSOLUTE AUTO 2.79 K/uL (1.80-7.70); NEUTROPHILS PERCENT AUTO 74.2 % (41.0-71.0); PLATELET COUNT,PLT 167 K/uL (150-400); RED BLOOD CELL COUNT 4.16 M/uL (4.10-5.30); WHITE BLOOD CELL COUNT,WBC 3.76 K/uL (3.9-11.3)
[2024-11-13 06:06] LABS: CALCIUM 8.2 mg/dL (8.5-10.1); CARBON DIOXIDE,CO2 23.9 mmol/L (21.0-32.0); CREATININE 1.4 mg/dL (0.6-1.0); EST CRCL DRUG DOSING (CG) 28.84 mL/min; MAGNESIUM 1.9 mg/dL (1.8-2.4); POTASSIUM,K 3.9 mmol/L (3.5-5.1)
[2024-11-13] MEDS: Oseltamivir 30 MG Cap PO SCH (09:02)
[2024-11-13] MEDS: Azithromycin 250 MG Tab PO SCH (11:15)
[2024-11-14 06:03] LABS: BASOPHILS ABSOLUTE AUTO 0.01 K/uL (0.00-0.20); BASOPHILS PERCENT AUTO 0.2 % (0.0-1.0); EOSINOPHILS ABSOLUTE AUTO 0.09 K/uL (0.00-0.45); EOSINOPHILS PERCENT AUTO 1.9 % (0.0-6.0); HEMATOCRIT 36.6 % (37.0-47.0); HEMOGLOBIN 11.9 g/dL (12.0-16.0); IMMATURE GRAN ABSOLUTE AUTO 0.04 K/uL (0.00-0.05); IMMATURE GRAN PERCENT AUTO 0.8 % (0.0-0.4); LYMPHOCYTES ABSOLUTE AUTO 0.69 K/uL (1.00-4.80); LYMPHOCYTES PERCENT AUTO 14.6 % (24.0-44.0); MEAN CORPUSCULAR HEMOGLOBIN 28.6 pg (28.0-32.0); MEAN CORPUSCULAR HGB CONC 32.5 g/dL (32.0-36.0); MEAN PLATELET VOLUME 9.3 fL (9.4-12.3); MONOCYTES ABSOLUTE AUTO 0.27 K/uL (0.00-0.80); MONOCYTES PERCENT AUTO 5.7 % (0.0-8.0); NEUTROPHILS ABSOLUTE AUTO 3.64 K/uL (1.80-7.70); NEUTROPHILS PERCENT AUTO 76.8 % (41.0-71.0); PLATELET COUNT,PLT 173 K/uL (150-400); RED BLOOD CELL COUNT 4.16 M/uL (4.10-5.30); WHITE BLOOD CELL COUNT,WBC 4.74 K/uL (3.9-11.3)
[2024-11-14 06:45] LABS: CALCIUM 8.7 mg/dL (8.5-10.1); CARBON DIOXIDE,CO2 24.3 mmol/L (21.0-32.0); CREATININE 1.2 mg/dL (0.6-1.0); EST CRCL DRUG DOSING (CG) 33.65 mL/min; MAGNESIUM 1.8 mg/dL (1.8-2.4); POTASSIUM,K 3.7 mmol/L (3.5-5.1)
[2024-11-14 13:53] VITALS: BP 132/76; PULSE 64
== END 2024-11-14 13:40 | disposition home or self-care (01) | DRG 193 ==
LOC: MW.MS 10:34
PROVIDERS: ADMIT Internal Medicine; ATTEND Internal Medicine
DX: J10.00 Influenza due to other identified influenza virus with unspecified type of pneumonia (principal); J96.01 Acute respiratory failure with hypoxia; J44.0 Chronic obstructive pulmonary disease with (acute) lower respiratory infection; Z66 Do not resuscitate; E03.9 Hypothyroidism, unspecified; I25.10 Atherosclerotic heart disease of native coronary artery without angina pectoris; I10 Essential (primary) hypertension; E11.51 Type 2 diabetes mellitus with diabetic peripheral angiopathy without gangrene; M19.90 Unspecified osteoarthritis, unspecified site; Z86.79 Personal history of other diseases of the circulatory system; I25.2 Old myocardial infarction; Z98.890 Other specified postprocedural states; Z79.84 Long term (current) use of oral hypoglycemic drugs; Z79.51 Long term (current) use of inhaled steroids; Z79.82 Long term (current) use of aspirin; Z79.899 Other long term (current) drug therapy; Z88.5 Allergy status to narcotic agent; Z88.8 Allergy status to other drugs, medicaments and biological substances; Z88.2 Allergy status to sulfonamides; Z79.2 Long term (current) use of antibiotics; Z98.49 Cataract extraction status, unspecified eye; Z95.5 Presence of coronary angioplasty implant and graft; Z90.49 Acquired absence of other specified parts of digestive tract; Z98.51 Tubal ligation status
CPT/HCPCS: 0240U; 36415; 71046; 71046-26; 80048; 80053; 82947; 83735; 83880; 85025; 87070; 87205; 87486; 87581; 87633; 94640; 94667; 94668; 97161-GP; A9270-GY; J0456; J0696; J1644; J1815-GY; J3475; J7030; J7050

== ENCOUNTER 2025-03-07 15:30 | Emergency (ER) | payer MEDICARE, BC ==
[2025-03-07] MEDS: Diphtheria,Pertussis(Acell),Tetanus Vaccine 0.5 ML Syringe IM ONE (16:17)
[2025-03-07 17:26] VITALS: BP 193/73; PULSE 59
== END 2025-03-07 17:50 | disposition home or self-care (01) ==
LOC: MW.ED 15:30
DX: S52.91XA Unspecified fracture of right forearm, initial encounter for closed fracture (principal); M89.9 Disorder of bone, unspecified; Z88.8 Allergy status to other drugs, medicaments and biological substances; Z79.899 Other long term (current) drug therapy; Z79.82 Long term (current) use of aspirin; Z79.84 Long term (current) use of oral hypoglycemic drugs; X58.XXXA Exposure to other specified factors, initial encounter
CPT/HCPCS: 29125; 70450; 72125; 73110; 90471; 90715; 99284; A9270; 99283